=== PATIENT | female | born 1955 | race Caucasian/White ===

== ENCOUNTER → 2019-12-15 14:00 | Outpatient (CLI) | payer BC, SELFPAY ==
--- NOTE | ~2019-12-15 | CT_ITS ---
EXAMINATION: CT chest abdomen pelvis w con EXAM DATE: 12/15/2019 14:41 INDICATION: Unintended Weight loss. History cholecystectomy, appendectomy. Right flank pain. Diarrhea . Cough. Occasional right-sided chest pain. TECHNIQUE: Spiral CT of the chest, abdomen and pelvis was performed following intravenous injection o f 100 mL Omnipaque 350. Axial, coronal and sagittal images were reviewed. Coronal maximum intensity pixel images of chest reviewed. The dose-length product (DLP) for this examination was 314.86 mGy-c m. The exposure was tailored according to patient size (auto mA exposure control), and iterative rec onstruction (ASIR) was used as additional dose reduction technique. Comparison is made to prior exami nation from 11/20/2018. FINDINGS: CHEST: There is mild emphysema. No central pulmonary emboli. Lungs are clear. There are no pleural or pericardial effusions. Tracheobronchial tree is patent. There is no mediastinal, hilar or axil michaelle lymphadenopathy. There is no pneumothorax. Heart normal in size. There is mild coronary ar terial calcification, arterial sclerosis. ABDOMEN PELVIS: The liver, spleen, adrenal glands and pancreas are unremarkable. There are cholecyst ectomy clips. Portal and splenic veins are patent. Kidneys enhance symmetrically. There is no hydr onephrosis. The uterus is unremarkable. Dilated left gonadal veins, could indicate pelvic congestion syndrome. The bladder is unremarkable. There is no retroperitoneal or pelvic lymphadenopathy. Th ere is mild scattered arteriosclerotic disease. The appendix is not positively visualized. There is no pericecal inflammatory change to suggest appe ndicitis. There is small sliding gastroesophageal hiatal hernia. There is moderate scattered coloni c diverticulosis. There is no adjacent inflammatory change to suggest diverticulitis. No free intra peritoneal gas. There are no osteoblastic or osteolytic lesions identified. Severe lower thoracic dextroscoliosis. IMPRESSION: 1. No acute chest abdomen or pelvis findings. 2. Dilated left gonadal vein, possible pelvic congestion syndrome. 3. Moderate colonic diverticulosis. 4. Severe lower thoracic dextroscoliosis. 5. Mild emphysema. Reviewed, dictated and finalized at location B.
[2019-12-15 14:21] LABS: Estimated Glomerular Filt Rate 38
== END ==
PROVIDERS: PCP Internal Medicine; Visit Provider Internal Medicine
DX: R63.4 Abnormal weight loss (principal); K57.90 Diverticulosis of intestine, part unspecified, without perforation or abscess without bleeding; M41.84 Other forms of scoliosis, thoracic region; J43.9 Emphysema, unspecified
CPT/HCPCS: 36415; 71260; 74177; Q9967

== ENCOUNTER → 2020-09-29 11:12 | Outpatient (CLI) | payer MEDICARE, SELFPAY ==
--- NOTE | ~2020-09-29 | XR_ITS ---
XR chest 2V DATE: 09/29/2020 12:14 INDICATION: Cough TECHNIQUE: PA and lateral views COMPARISON: 08/15/2017 two-view chest FINDINGS: There is very prominent reverse S-shaped thoracolumbar scoliosis. Diffuse osteopenia. Mild cardiomegaly. No hilar or mediastinal enlargement. Moderate bilateral hyperinflation suggesting COPD. No pulmonary infiltrate or consolidation, pleural effusion or pulmonary vascular congestion or pneumo thorax. Status post cholecystectomy. IMPRESSION: Moderate bilateral hyperinflation suggesting COPD Mild cardiomegaly Prominent thoracolumbar scoliosis Reviewed, dictated and finalized at location A.
--- NOTE | ~2020-09-29 | XR_ITS ---
XR sinus min 3V DATE: 09/29/2020 12:15 INDICATION: Nasal congestion TECHNIQUE: Submental vertical, lateral, [place], [place] views COMPARISON: 12/11/2017 CT sinuses FINDINGS: The paranasal sinuses and mastoid air cells are normally developed and aerated. IMPRESSION: Negative Reviewed, dictated and finalized at location A. IMPRESSION: Negative
== END ==
PROVIDERS: PCP Internal Medicine; Visit Provider Internal Medicine
DX: R05 Cough (principal); R09.89 Other specified symptoms and signs involving the circulatory and respiratory systems; R09.81 Nasal congestion; R91.8 Other nonspecific abnormal finding of lung field; I51.7 Cardiomegaly; M41.85 Other forms of scoliosis, thoracolumbar region
CPT/HCPCS: 70220; 71046

== ENCOUNTER → 2020-10-04 12:30 | Outpatient (CLI) | payer MEDICARE, SELFPAY ==
--- NOTE | ~2020-10-04 | US_ITS ---
EXAMINATION: US renal BI EXAM DATE: 10/04/2020 13:12 INDICATION: R79.89 - Other specified abnormal findings of blood chemistry. Abnormal kidney function. TECHNIQUE: Multiple grayscale and Doppler images of the kidneys were obtained (by a technologist who performed the scan) and subsequently reviewed. There is no prior study for comparison. FINDINGS: Right kidney: There is normal contour and echogenicity. It measures 8.8 x 3.6 x 4.4 centimeters. Th ere are no focal renal lesions identified. There is no hydronephrosis. Left kidney: There is normal contour and echogenicity. It measures 8.1 x 3.6 x 3.4 centimeters. The re are no focal renal lesions identified. There is no hydronephrosis. Bladder unremarkable. IMPRESSION: 1. Sonographically unremarkable kidneys. Reviewed, dictated and finalized at location A.
== END ==
PROVIDERS: PCP Internal Medicine; Visit Provider Internal Medicine
DX: R79.89 Other specified abnormal findings of blood chemistry (principal)
CPT/HCPCS: 76775

== ENCOUNTER 2020-10-05 12:55 | Outpatient (CLI) | payer MEDICARE, SELFPAY ==
--- NOTE | 2020-10-05 13:13 | ECHO_ITS ---
Patient Info Name: Soo Coello Age: 64 years : 1955 Gender: Female Ht: 63 in Wt: 114 lbs BSA: 1.51 m2 HR: 77 bpm BP: 131 / 76 mmHg Technical Quality: Good Exam Date: 10/05/2020 1:32 PM Exam Location: [facility] Patient Status: Outpatient Admit Date: 10/05/2020 Staff Ordering Physician: Shane Puckett MD [employer] Counselor: Eliel Stevens, INEZ, RT Attending Provider: Shane Puckett MD Referring Physician: Lavern HILL; Exam Type: CA echo doppler color flow Study Info Indications I51.7 - Cardiomegaly Complete two-dimensional, color flow and Doppler transthoracic echocardiogram is performed. Strain analysis performed. Summary 1. Complete two-dimensional, color flow and Doppler transthoracic echocardiogram is performed. 2. Left ventricular chamber dimension is normal. 3. Left ventricular systolic function is normal, estimated at 60-65%. 4. The left ventricular diastolic function is grade I diastolic dysfunction. 5. E/e' 10 is mildly elevated. 6. Global longitudinal strain is normal at -20.9%. 7. There is trace mitral valve regurgitation. 8. There is mild to moderate tricuspid valve regurgitation. 9. Severe pulmonary hypertension, estimated pulmonary arterial systolic pressure is 65 mmHg. 10. Dilated inferior vena cava with >50% collapse upon inspiration consistent with elevated right atrial pressure, 10 mmHg. Left Ventricle E/e' 10 is mildly elevated. Global longitudinal strain is normal at -20.9%. Left ventricular chamber dimension is normal. Left ventricular systolic function is normal, estimated at 60-65%. The left ventricular diastolic function is grade I diastolic dysfunction. Right Ventricle Right ventricular systolic function is normal and with normal TAPSE 2.5 cm. Right ventricular chamber dimension is normal. Left Atria Left atrial chamber dimension is normal. Right Atria Right atrial chamber dimension is normal. Aortic Valve The aortic valve is trileaflet. There is no aortic valve stenosis. There is no aortic valve regurgitation. Pulmonic Valve There is no pulmonic regurgitation. Mitral Valve There is no mitral valve stenosis. There is trace mitral valve regurgitation. Tricuspid Valve There is mild to moderate tricuspid valve regurgitation. Severe pulmonary hypertension, estimated pulmonary arterial systolic pressure is 65 mmHg. Pericardium/Pleural There is no pericardial effusion. Inferior Vena Cava Dilated inferior vena cava with >50% collapse upon inspiration consistent with elevated right atrial pressure, 10 mmHg. Aorta The aortic root size at the sinus of Valsalva is normal. Left Ventricular Outflow Tract Name Value Normal LVOT 2D LVOT Diameter 1.9 cm LVOT Doppler LVOT Peak Gradient 4 mmHg LVOT Mean Gradient 2 mmHg LVOT VTI 21 cm LVOT VTI/AV VTI Ratio 0.8 LVOT Stroke Volume 56 ml LVOT CO 4.2 l/min LVOT CI 2.8 l/min/m2
== END 2020-10-05 12:56 | disposition home or self-care (01) ==
PROVIDERS: PCP Internal Medicine; Visit Provider Internal Medicine
DX: I51.7 Cardiomegaly (principal); I36.1 Nonrheumatic tricuspid (valve) insufficiency; I27.20 Pulmonary hypertension, unspecified
CPT/HCPCS: 93306

== ENCOUNTER 2020-10-13 10:05 | Outpatient (CLI) | payer MEDICARE, SELFPAY ==
--- NOTE | ~2020-10-13 | CT_ITS ---
EXAMINATION: CT diagnostic chest w con DATE: 10/13/2020 11:57 INDICATION: Pulmonary hypertension TECHNIQUE: Computed tomography (CT) of the chest was performed with 75 cc Omnipaque 350 intravenous c ontrast. The dose-length product was 122.66 mGy-cm. Automated exposure control and iterative reconstr uction technique were employed. COMPARISON: CT dated 12/15/2019 FINDINGS: Main pulmonary artery measures 3.1 cm which is compatible with pulmonary hypertension (main pulmonary artery greater than or equal to 29 mm has a 97% positive predictive value and diagnosis of pulmonary hypertension) there is dependent atelectasis. Calcified granuloma right midlung zone.. No filling defects to suggest pulmonary hypertension. No thoracic lymphadenopathy. Heart size normal. Sm all hiatal hernia. No significant pleural or pericardial effusion. There is scoliosis. The upper abdo men is unremarkable. IMPRESSION: 1. Enlarged main pulmonary artery, consistent with clinical diagnosis of pulmonary hypertension. Reviewed, dictated and finalized at location A. IMPRESSION: 1. Enlarged main pulmonary artery, consistent with clinical diagnosis of pulmon ramya hypertension.
[2020-10-13 11:52] LABS: Estimated Glomerular Filt Rate 38
== END 2020-10-13 10:06 | disposition home or self-care (01) ==
PROVIDERS: PCP Internal Medicine; Visit Provider Internal Medicine
DX: I27.20 Pulmonary hypertension, unspecified (principal)
CPT/HCPCS: 71260; Q9967

== ENCOUNTER 2020-10-28 09:06 | Outpatient (CLI) | payer MEDICARE, SELFPAY ==
--- NOTE | 2020-10-28 17:03 | WPDPFTINT ---
PFT Procedure Performed PFT Procedure Performed Spirometry with Pre/Post Bronchodilator Plethysmography (Lung Vol) Diffusing Cap (DLCO) Flow Vol Loop PFT Interpretation This is a pulmonary function test with pre and post-bronchodilator spirometry, plethysmography and diffusing capacity. The test was performed and results interpreted in accordance with the 2019 and 2005 ATS/ERS Task Force guidelines respectively using the Global Lung Function Initiative-2012 reference equations. Patient demonstrated good effort and cooperation. Reproducibility criteria were met. The quality of the pre bronchodilator spirometry maneuver was Grade A and post bronchodilator spirometry maneuver was Grade A. Findings: Spirometry: There is decreased maximal expiratory airflow at low lung volumes with concave expiratory flow tracing. The pre bronchodilator FVC is 2.44 L, 85% predicted. The pre bronchodilator FEV1 is 1.66 L, 74% predicted. The FEV1: FVC ratio 68%. The post bronchodilator FVC is 2.29 L, representing a 6% decrease. The post bronchodilator FEV1 is 1.67 L, representing a 1% increase. Plethysmography: The total lung capacity is 3.53 L, 72% predicted. The functional residual capacity is 2.00 L, 72% predicted. The residual volume is 1.09 L, 53% predicted. Diffusing capacity: The absolute diffusion capacity is 5.6, 27% predicted. The diffusing capacity corrected for alveolar volume is 1.64, 34% predicted. Impression: There is a combined obstructive and restrictive ventilatory abnormality. There are no guidelines to assign the severity of obstruction and restriction with a combined abnormality. In my opinion, given the concave expiratory flow tracing and mildly decreased FEV1: FVC ratio and mild restrictive abnormality I would state there is a mild obstructive abnormality and a mild restrictive abnormality resulting in a mildly decreased FEV1. There is no significant improvement after inhaling a single dose of albuterol. The diffusing capacity is severely decreased and remains severely decreased when corrected for alveolar volume. There are no prior studies for comparison
== END 2020-10-28 09:07 | disposition home or self-care (01) ==
LOC: ANHPFT 09:06
PROVIDERS: PCP Internal Medicine; Visit Provider Internal Medicine
DX: I27.20 Pulmonary hypertension, unspecified (principal)
CPT/HCPCS: 94060; 94726; 94729

== ENCOUNTER 2020-11-09 08:02 | Outpatient (CLI) | payer MEDICARE, SELFPAY ==
--- NOTE | ~2020-11-09 | CT_ITS ---
EXAMINATION:CT diagnostic chest w con DATE: 11/09/2020 08:47 INDICATION: Shortness of breath. TECHNIQUE: Computed tomography (CT) of the chest was performed with 75 mL Omnipaque 350 intravenous c ontrast. Automated exposure control and iterative reconstruction technique were employed. The dose-le ngth product (DLP) was 120.22 mGy-cm. COMPARISON: Chest CT 10/13/2020 FINDINGS: There is mild atelectasis bilaterally. There is mild scarring at left lung apex. There is s mooth septal thickening in the lungs, consistent with mild pulmonary edema. A calcified right lung no dule and calcified right hilar lymph nodes are consistent with old granulomatous disease. No honeycom gamal. No pleural effusion. The heart size is normal. There are coronary artery calcifications. No per icardial effusion. The central pulmonary arteries are enlarged, consistent with pulmonary arterial hy pertension. There is thoracolumbar dextroscoliosis and mild spondylosis. IMPRESSION: 1. Mild pulmonary edema. 2. Mild scarring at left lung apex. 3. Enlarged central pulmonary arteries, consistent with pulmonary arterial hypertension. Reviewed, dictated and finalized at location A. IMPRESSION: 1. Mild pulmonary edema. 2. Mild scarring at left lung apex. 3. Enlarged central pulmonary arteries, consistent with pulmonary arterial hype rtension.
[2020-11-09 08:33] LABS: Estimated Glomerular Filt Rate 38
== END 2020-11-09 08:03 | disposition home or self-care (01) ==
PROVIDERS: PCP Internal Medicine; Visit Provider Internal Medicine
DX: R06.02 Shortness of breath (principal); R94.2 Abnormal results of pulmonary function studies; J81.1 Chronic pulmonary edema; R91.8 Other nonspecific abnormal finding of lung field; I77.89 Other specified disorders of arteries and arterioles
CPT/HCPCS: 71260; Q9967

== ENCOUNTER 2020-11-26 08:13 | Outpatient (CLI) | payer MEDICARE, SELFPAY ==
[2020-11-26 08:30] VITALS: PULSE 70; O2SAT 97
[2020-11-26 08:35] VITALS: PULSE 109; O2SAT 89
[2020-11-26 08:45] VITALS: PULSE 72; O2SAT 96
--- NOTE | 2020-11-26 09:27 | HOMEO2EVAL ---
Evaluation was performed at [facility] Home Oxygen Evaluation RC: Home Oxygen (O2) Evaluation Start: 11/26/20 09:25 Freq: Status: Active Protocol: RPE Activity Type Activity Date Activity User E-Sign Co-Sign Detail Recorded Client Recorded Date Recorded By Document 11/26/20 08:30 [email or web address] [id number] 11/26/20 09:26 DJO Document 11/26/20 08:35 [email or web address] [id number] 11/26/20 09:26 DJO Document 11/26/20 08:45 [email or web address] [email or web address] 11/26/20 09:26 DJO 11/26/20 11/26/20 11/26/20 08:30 08:35 08:45 Home O2 Evaluation Test Phase Resting Resting Resting Oxygen Delivery Room Air Room Air Room Air Pulse Oximetry (90-100 %) 97 89 L 96 Pulse Rate (60-100 beats/min) 70 109 H 72 Ambulation Distance (feet) 500 Home Oxygen Evaluation Comments NO HOME O2 NEEDED. Treatment Charges O2 Evaluation - Outpatient
--- NOTE | 2020-11-26 09:28 | PCRCNOTE ---
HOME O2 EVAL DONE, PT ENCOURAGED TO DEEP BREATH TO KEEP SATS UP, ONCE DEEP BREATHING, PT SATS INCREASED 94% WITH EXERTION
== END 2020-11-26 08:14 | disposition home or self-care (01) ==
PROVIDERS: PCP Internal Medicine; Visit Provider Internal Medicine
DX: J81.0 Acute pulmonary edema (principal); M34.9 Systemic sclerosis, unspecified; I27.20 Pulmonary hypertension, unspecified
CPT/HCPCS: 94618

== ENCOUNTER → 2020-12-23 13:07 | Outpatient (CLI) | payer MEDICARE, SELFPAY ==
--- NOTE | ~2020-12-23 | XR_ITS ---
EXAMINATION: XR hand LT 2V, XR hand RT 2V DATE: 12/23/2020 13:27 INDICATION: Scleroderma. Polyarthralgia. TECHNIQUE: 1. Posteroanterior and lateral views of the left hand were obtained. 2. Posteroanterior and lateral views of the right hand were obtained. COMPARISON: None. FINDINGS: There is ankylosis across the left second, fourth and fifth and right fifth distal interphalangeal ricki ints. Severe osteoarthritis with central erosions at the left third and fourth second-fourth distal i nterphalangeal joints. There is secondary mild palmar subluxation at the right fourth distal interpha langeal joint. There is increased left-sided scapholunate angle consistent with dorsal intercalated s egment instability (DISI) and suggesting scapholunate ligament insufficiency. Alignment is otherwise normal at the bilateral hands. Mild to moderate joint space narrowing at many of the remaining metaca rpophalangeal and interphalangeal joints most prominent at the bilateral fourth and fifth proximal in terphalangeal and bilateral fourth metacarpophalangeal joints. Additional mild osteoarthritis at mult iple joints in the bilateral wrist and carpus. Aside from at the bases of several of the distal phala nges, no other erosions identified. No active osteolysis. No fracture. Periarticular osteopenia. Mild periarticular soft tissue swelling about many of the interphalangeal joints. IMPRESSION: 1. Polyarticular arthritis, severe and with secondary ankylosis at multiple distal interphalangeal ricki ints and with prominent erosions at the remaining distal interphalangeal joints and mild to moderate at the more proximal hands and wrists. Differential would include scleroderma as well as erosive oste oarthritis, the appearance at the distal interphalangeal joints favoring the latter. 2. Increased left scapholunate angle consistent with dorsal intercalated segment instability (DISI) a nd suggesting scapholunate ligament insufficiency. Reviewed, dictated and finalized at location D. IMPRESSION: 1. Polyarticular arthritis, severe and with secondary ankylosis at multiple dis marbella interphalangeal joints and with prominent erosions at the remaining distal interphalangeal joints and mild to moderate at the more proximal hands and wris ts. Differential would include scleroderma as well as erosive osteoarthritis, t he appearance at the distal interphalangeal joints favoring the latter. 2. Increased left scapholunate angle consistent with dorsal intercalated segmen t instability (DISI) and suggesting scapholunate ligament insufficiency.
== END ==
PROVIDERS: PCP Internal Medicine; Visit Provider Physician Assistant
DX: M15.9 Polyosteoarthritis, unspecified (principal); M25.50 Pain in unspecified joint; Z87.39 Personal history of other diseases of the musculoskeletal system and connective tissue
CPT/HCPCS: 73120

== ENCOUNTER 2021-01-20 07:37 | Outpatient (CLI) | payer MEDICARE, SELFPAY ==
--- NOTE | 2021-02-01 15:25 | WPDSLEEPSTUD ---
Sleep Study Date of Study: 01/20/21 Ordering Provider: Ingris Katz MD Interpreting Physician: Ingris Katz MD Sleep Study Type: Polysomnogram Height: 1.57 m Weight: 49.895 kg Body Mass Index: 20.1 Neck Circumference (inches): 11 [place]: 3 Reason for Sleep Study Pulmonary hypertension, shortness of breath Sleep History Soo Chowdhury is a 65-year-old female with shortness of breath especially with stairs. She has difficulty falling asleep and she wakes up throughout the night. She does not awaken from sleep feeling short of breath. She rarely awakens at night with heartburn, belching or coughing. She rarely snores and it rarely is loud. She does not have trouble sleeping with a cold. She does not wake up gasping for breath at night. She does not have breathing problems at night observed by others. She does not sweat excessively at night. She occasionally notices her heart pounding or beating irregularly at night. She does not fall asleep during the day, does not fall asleep involuntarily or while driving the car. She does not have loss of muscle tone with strong emotion. She does not have daytime difficulties due to excessive sleepiness. She rarely has vivid dreamlike scenes upon awakening or falling asleep. She does not feel afraid to go to sleep and does not have nightmares. She frequently remembers her dreams. She really has racing thoughts. She has feelings of sadness, depression and anxiety. She occasionally has muscular tension. She does not notice parts of her body jerking and she does not kick at night. She has crawling and aching feelings in her legs. She does not have any kind of leg pain at night. She does not have morning jaw pain. She is not sure but she thinks she occasionally grinds her teeth at night. She occasionally is bothered by pain during the day. She is not awakened by pain during the night or wake up feeling stiff in the morning. She rarely wakes up with sore achy muscles or pain in the neck and spine. She has fatigue, headaches, palpitations and takes prescription medication for GERD. Normal bedtime is 11:30 p.m. and she is not sure how long it takes her to fall asleep. Once she is asleep she wakes once or twice during the night. Once is when her comes to bed. He works a shift from 4:00 p.m. to midnight. She wakes in the morning between 9 and 10:00 a.m.. Her weekend schedule is the same. She estimates getting 8 hours of sleep at night. She does not take naps in the afternoon or evening. A short 10-15 minute nap may be refreshing. She occasionally awakens feeling refreshed in the morning. She feels better in the morning compared to other times of day. [facility]LY [facility] Past Medical History Medical History Abnormal PFT Adult BMI 19-24 kg/sq m Anxiety BMI 20.0-20.9, adult Diastolic dysfunction Edema Elevated homocysteine Elevated serum creatinine Encounter for routine adult health examination without abnormal findings Follow up Gastroparesis GERD (gastroesophageal reflux disease) Hearing loss Hx of colonic polyps Hyperlipidemia Hypothyroidism (acquired) Itching Nasal sinus congestion On [facility] drug therapy Pulmonary edema Pulmonary hypertension associated with systemic disorder Scleroderma Scoliosis Shortness of breath Sinus drainage Skin plaque Statin intolerance Unexplained weight loss Family History Family History Father Cerebrovascular accident Family history of coronary artery disease Grandparent Acute myocardial infarction Social History Social History (Updated 01/24/21 @ 14:15 by Trixie Naranjo CMA) Smoking status: Never smoker Second hand tobacco smoke exposure: No Alcohol intake: never Substance use: never Living arrangements: with family Spiritual care concerns: No Medications Home Medications Medicati
[2021-02-01 15:28] VITALS: BMI 20.1
== END 2021-01-21 06:04 | disposition home or self-care (01) ==
LOC: ANHCSM 07:39
PROVIDERS: PCP Internal Medicine; Visit Provider Internal Medicine Critical Care Medicine
DX: G47.19 Other hypersomnia (principal); R06.02 Shortness of breath; G47.31 Primary central sleep apnea; G25.81 Restless legs syndrome
CPT/HCPCS: 95810

== ENCOUNTER 2021-02-17 01:16 | Day surgery (SDC) | payer MEDICARE, SELFPAY ==
[2021-01-28 13:57] VITALS: BMI 20.1
[2021-02-17 08:39] VITALS: BP 109/64; PULSE 83; RESP 16; TEMP 37.7; O2SAT 93
[2021-02-17] MEDS: LACTATED RINGERS 1,000 ML 150 ML IV CONT (08:43)
--- NOTE | 2021-02-17 08:52 | WPDANESEPPF ---
Anes - Initial Pre Proc Eval Procedure: Operation Date: 02/17/21 09:45 Proposed Procedures p Esophagogastroduodenoscopy - Alec Lopez MD Date/Time: 02/17/21 08:52 Surgeon: lAec Lopez MD Pre Op Diagnosis: dysphagia Patient Data Age: 65 Gender: F Height: 1.57 m Weight: 49.5 kg Last Vital Signs Temp 37.7 C H 02/17/21 08:39 Pulse 83 02/17/21 08:39 Resp 16 02/17/21 08:39 BP 109/64 02/17/21 08:39 Pulse Ox 93 02/17/21 08:39 Allergies Allergy/AdvReac Type Severity Reaction Status Date / Time latex Allergy Mild RASH Verified 02/17/21 08:38 naproxen Allergy Unknown Nausea Verified 02/17/21 08:38 Home Medications Medication Instructions Recorded Confirmed Type fluticasone propionate 50 2 spray NASAL DAILY 04/29/19 02/17/21 History mcg/actuation nasal spray,suspension cetirizine 10 mg tablet 5 mg PO DAILY PRN 12/11/19 02/17/21 History omeprazole 40 mg capsule,delayed 40 mg PO DAILY #90 cap 04/26/20 02/17/21 Rx release folic acid 1 mg tablet 1 mg PO DAILY #90 tablet 05/17/20 02/17/21 Rx omega-3 fatty acids 1,000 mg 2,000 mg PO BID cap 05/24/20 02/17/21 History capsule alprazolam 0.25 mg tablet 0.25 mg PO TID PRN #30 tablet 08/04/20 02/17/21 Rx cholecalciferol (vitamin D3) 25 mcg PO DAILY 09/29/20 02/17/21 History cyanocobalamin (vitamin B-12) 200 4 spray SUBLINGUAL DAILY ml 09/29/20 02/17/21 History mcg/spray sublingual spray,suspension albuterol sulfate 90 mcg/actuation 2 inh INHALATION Q4-6H PRN #8.5 g 10/01/20 02/17/21 Rx aerosol inhaler Synthroid 100 mcg tablet See Rx Instructions .ROUTE 10/26/20 02/17/21 Rx .COMPLEX #90 tablet NS furosemide 20 mg tablet 20 mg PO QAM #30 tablet 11/11/20 02/17/21 Rx potassium chloride 10 mEq 10 meq PO DAILY #30 tablet 11/11/20 02/17/21 Rx tablet,extended release sertraline 100 mg tablet See Rx Instructions .ROUTE 12/23/20 02/17/21 Rx .COMPLEX #90 tablet montelukast 10 mg tablet See Rx Instructions .ROUTE 01/10/21 02/17/21 Rx .COMPLEX #30 tablet ezetimibe 10 mg tablet 10 mg PO DAILY 02/11/21 History ferrous sulfate 325 mg (65 mg 325 mg PO BID #60 tablet 02/15/21 Rx iron) tablet Patient hx anesthesia problems: none Family hx anesthesia problems: none Results Review: All pre-operative results and documents have been reviewed as part of the pre-operative evaluation. [facility]LY [facility] Past Medical History Medical History Abnormal PFT Adult BMI 19-24 kg/sq m Anxiety BMI 20.0-20.9, adult Diastolic dysfunction Edema Elevated homocysteine Elevated serum creatinine Encounter for routine adult health examination without abnormal findings Follow up Gastroparesis GERD (gastroesophageal reflux disease) Hearing loss Hx of colonic polyps Hyperlipidemia Hypothyroidism (acquired) Itching Nasal sinus congestion On [employer] drug therapy Pulmonary edema Pulmonary hypertension associated with systemic disorder Scleroderma Scoliosis Shortness of breath Sinus drainage Skin plaque Statin intolerance Unexplained weight loss Family History Family History Father Cerebrovascular accident Family history of coronary artery disease Grandparent Acute myocardial infarction Social History Social History Smoking status: Never smoker Second hand tobacco smoke exposure: No Alcohol intake: never Substance use: never Living arrangements: with family Spiritual care concerns: No Anes - Eval Final PreProcedure Day of Procedure 02/17/21 08:52 Patient weight: normal Heart: regular rate and rhythm Lungs: clear to auscultation Airway: Mallampati scale class II Neurological: alert and oriented Last oral intake: >/= 8 hours ASA classification: II Emergent: no Anesthetic plan: proceed Anesthesia type and monitoring: general GIVS and standard monitoring
--- NOTE | 2021-02-17 09:15 | WPDHPUPDATE1 ---
History and Physical Update Update Date/Time: 02/17/21 09:15 History and Physical has been reviewed, including an updated exam of the patient. There are NO changes in the patient's condition. Risks, benefits, and alternatives have been discussed and questions answered. Patient agrees to proceed with procedure.
[2021-02-17 09:46] VITALS: BP 84/52; PULSE 66; RESP 16; O2SAT 96
[2021-02-17 09:56] VITALS: BP 114/71; PULSE 71; RESP 20; O2SAT 96
[2021-02-17 10:06] VITALS: BP 128/80; PULSE 78; RESP 18; O2SAT 100
== END 2021-02-17 10:26 | disposition home or self-care (01) ==
PROVIDERS: PCP Internal Medicine; Visit Provider Internal Medicine Gastroenterology
PROC: 0DJ08ZZ Inspection of Upper Intestinal Tract, Via Natural or Artificial Opening Endoscopic (ICD-10-PCS; CPT 43235; principal; 2021-02-17 09:45)
DX: Q39.4 Esophageal web (principal); K31.84 Gastroparesis; K21.9 Gastro-esophageal reflux disease without esophagitis; E78.5 Hyperlipidemia, unspecified; I27.29 Other secondary pulmonary hypertension; E03.9 Hypothyroidism, unspecified; M34.9 Systemic sclerosis, unspecified; I73.00 Raynaud's syndrome without gangrene; F41.9 Anxiety disorder, unspecified; I51.89 Other ill-defined heart diseases; Z79.51 Long term (current) use of inhaled steroids
CPT/HCPCS: 43249; C1726; J2704; J7120

== ENCOUNTER 2021-04-06 07:27 | Outpatient (CLI) | payer MEDICARE, SELFPAY ==
--- NOTE | 2021-04-26 11:43 | WPDSLEEPSTUD ---
Sleep Study Date of Study: 04/06/21 <Stacey Farmer DO - Last Filed: 04/26/21 12:50> Ordering Provider: Jaiden Vides APRN <Stacey Farmer DO - Last Filed: 04/26/21 12:50> Interpreting Physician: Stacey Farmer DO <Stacey Farmer DO - Last Filed: 04/26/21 12:50> Sleep Study Type: CPAP Titration <Stacey Farmer DO - Last Filed: 04/26/21 12:50> Height: 1.55 m <Stacey Farmer DO - Last Filed: 04/26/21 12:50> Weight: 49.895 kg <Stacey Farmer DO - Last Filed: 04/26/21 12:50> Body Mass Index: 20.7 <Stacey Farmer DO - Last Filed: 04/26/21 12:50> Neck Circumference (inches): 12 <Stacey Farmer DO - Last Filed: 04/26/21 12:50> Pettigrew: 3 <Stacey Farmer DO - Last Filed: 04/26/21 12:50> Reason for Sleep Study The patient had a PSG on January 20, 2021 that showed an AHI of 5. Her central apnea index was 4.2 with several underscored central hypopneas. <Stacey Farmer DO - Last Filed: 04/26/21 12:50> Sleep History Soo Chowdhury is a 65-year-old female with shortness of breath especially with stairs. She has difficulty falling asleep and she wakes up throughout the night. She does not awaken from sleep feeling short of breath. She rarely awakens at night with heartburn, belching or coughing. She rarely snores and it rarely is loud. She does not have trouble sleeping with a cold. She does not wake up gasping for breath at night. She does not have breathing problems at night observed by others. She does not sweat excessively at night. She occasionally notices her heart pounding or beating irregularly at night. She does not fall asleep during the day, does not fall asleep involuntarily or while driving the car. She does not have loss of muscle tone with strong emotion. She does not have daytime difficulties due to excessive sleepiness. She rarely has vivid dreamlike scenes upon awakening or falling asleep. She does not feel afraid to go to sleep and does not have nightmares. She frequently remembers her dreams. She really has racing thoughts. She has feelings of sadness, depression and anxiety. She occasionally has muscular tension. She does not notice parts of her body jerking and she does not kick at night. She has crawling and aching feelings in her legs. She does not have any kind of leg pain at night. She does not have morning jaw pain. She is not sure but she thinks she occasionally grinds her teeth at night. She occasionally is bothered by pain during the day. She is not awakened by pain during the night or wake up feeling stiff in the morning. She rarely wakes up with sore achy muscles or pain in the neck and spine. She has fatigue, headaches, palpitations and takes prescription medication for GERD. Normal bedtime is 11:30 p.m. and she is not sure how long it takes her to fall asleep. Once she is asleep she wakes once or twice during the night. Once is when her comes to bed. He works a shift from 4:00 p.m. to midnight. She wakes in the morning between 9 and 10:00 a.m.. Her weekend schedule is the same. She estimates getting 8 hours of sleep at night. She does not take naps in the afternoon or evening. A short 10-15 minute nap may be refreshing. She occasionally awakens feeling refreshed in the morning. She feels better in the morning compared to other times of day. <Stacey Farmer DO - Last Filed: 04/26/21 12:50> [facility]LY [facility] Past Medical History Medical History: Medical History Abnormal PFT Adult BMI 19-24 kg/sq m Anxiety BMI 20.0-20.9, adult Diastolic dysfunction Edema Elevated homocysteine Elevated serum creatinine Encounter for routine adult health examination without abnormal findings Follow up Gastroparesis GERD (gastroesophageal reflux disease) Hearing loss Hx of colonic polyps Hyperlipidemia Hypothyroidis
[2021-04-26 12:24] VITALS: BMI 20.7
== END 2021-04-07 07:19 | disposition home or self-care (01) ==
LOC: ANHCSM 07:28
PROVIDERS: PCP Internal Medicine; Visit Provider Nurse Practitioner Family
DX: G47.31 Primary central sleep apnea (principal)
CPT/HCPCS: 95811

== ENCOUNTER 2021-09-01 07:38 | Outpatient (CLI) | payer MEDICARE, SELFPAY ==
--- NOTE | ~2021-09-01 | NM_ITS ---
EXAM: NM gastric emptying study DATE: 09/01/2021 12:47 INDICATION: Nausea TECHNIQUE: A gastric emptying study was performed using the methodology of Lurdes WELSH, et al. J Nucl Med 2007; 48:568-572. The patient was given a meal consisting of 2 scrambled eggs labeled with 0.972 mCi Tc-99m sulfur colloid, 2 slices of toast, two packages of jam, and approximately 120 mL of water . Simultaneous anterior and posterior 1-min images of the abdomen were obtained with the patient supi ne at multiple time points over a total period of 4 hours. The geometric mean of anterior and posteri or views was determined, and the percentage retention was calculated for each time point. COMPARISON: None. FINDINGS: Gastric retention of the radiotracer-labeled meal was 70%, 42%, and 35% at the 1-hour, 2-hour, and 4- hour time points, respectively. With this technique, apparent rapid gastric emptying is suggested by <30% gastric retention at 1 hour. Delayed gastric emptying is defined by gastric retention of >90% at 1 hour, >60% retention at 2 hours, or >10% retention at 4 hours. IMPRESSION: 1. Delayed gastric emptying. Reviewed, dictated and finalized at location A.
== END 2021-09-01 07:39 | disposition home or self-care (01) ==
PROVIDERS: PCP Internal Medicine; Visit Provider Nurse Practitioner Family
DX: R11.0 Nausea (principal); R14.2 Eructation
CPT/HCPCS: 78264; A9541

== ENCOUNTER 2021-11-21 00:37 | Day surgery (SDC) | payer MEDICARE, SELFPAY ==
[2021-11-09 10:17] VITALS: BMI 20.5
[2021-11-21 06:35] VITALS: BP 109/65; PULSE 81; RESP 16; TEMP 36.6; O2SAT 92
[2021-11-21] MEDS: LACTATED RINGERS 1,000 ML 150 ML IV CONT (06:45)
--- NOTE | 2021-11-21 07:08 | WPDANESEPPF ---
Anes - Initial Pre Proc Eval Procedure: Operation Date: 11/21/21 07:30 Proposed Procedures p Esophagogastroduodenoscopy - Alec Lopez MD Date/Time: 11/21/21 07:08 Surgeon: Alec Lopez MD Pre Op Diagnosis: GERD Patient Data Age: 66 Gender: F Height: 1.57 m Weight: 51.4 kg Last Vital Signs Temp 36.6 C 11/21/21 06:35 Pulse 81 11/21/21 06:35 Resp 16 11/21/21 06:35 BP 109/65 11/21/21 06:35 Pulse Ox 92 11/21/21 06:35 O2 Del Method Room Air 11/21/21 06:35 Allergies Allergy/AdvReac Type Severity Reaction Status Date / Time latex Allergy Mild RASH Verified 11/21/21 06:29 naproxen Allergy Unknown Nausea Verified 11/21/21 06:29 Home Medications Medication Instructions Recorded Confirmed Type cyanocobalamin (vitamin B-12) 200 4 spray sublingual DAILY 09/29/20 11/09/21 History mcg/spray sublingual spray,suspension ezetimibe 10 mg tablet 10 mg PO DAILY 02/11/21 11/09/21 History montelukast 10 mg tablet See Rx Instructions .Route 02/22/21 11/09/21 Rx .COMPLEX #90 tabs sertraline 100 mg tablet See Rx Instructions .Route 02/22/21 11/09/21 Rx .COMPLEX #90 tabs alprazolam 0.25 mg tablet 0.25 mg PO TID PRN anxiety #30 tabs 04/11/21 11/09/21 Rx folic acid 1 mg tablet 1 mg PO DAILY #90 tabs 05/25/21 11/09/21 Rx furosemide 20 mg tablet See Rx Instructions .Route .COMPLEX 07/06/21 11/09/21 History cholecalciferol (vitamin D3) 25 2,000 unit PO DAILY 07/28/21 11/09/21 History mcg/drop (1,000 unit/drop) oral drops Synthroid 125 mcg tablet 125 mcg PO DAILY #90 tabs 09/05/21 11/09/21 Rx (levothyroxine) metoclopramide HCl 10 mg tablet 10 mg PO TIDWMEAL nausea and 10/26/21 11/09/21 Rx (Reglan) vomiting #90 tabs cetirizine 10 mg tablet (Allergy 10 mg PO DAILY PRN Allergy Symptoms 10/27/21 11/09/21 History Relief (cetirizine)) omeprazole 40 mg capsule,delayed 40 mg PO DAILY #60 caps 10/27/21 11/09/21 Rx release coenzyme Q10 75 mg capsule (Ultra 75 mg PO DAILY 11/03/21 11/09/21 History CoQ10) rosuvastatin 10 mg tablet 10 mg PO DAILY #30 tabs 11/03/21 11/09/21 Rx cyclosporine 0.05 % eye drops in a 2 drp EACH EYE DAILY 11/09/21 11/09/21 History dropperette (Restasis) fluticasone furoate 100 1 inh inhalation DAILY 11/09/21 11/09/21 History mcg/actuation blister powder for inhalation (Arnuity Ellipta) spironolactone 25 mg tablet 0.5 tablet PO DAILY 11/09/21 11/09/21 History ferrous sulfate 325 mg (65 mg See Rx Instructions .Route 11/18/21 Rx iron) tablet .COMPLEX #30 tabs Patient hx anesthesia problems: none Family hx anesthesia problems: none Results Review: All pre-operative results and documents have been reviewed as part of the pre-operative evaluation. [facility] Past Medical History Medical History (Updated 11/03/21 @ 14:28 by Liza Solomon [facility]) Abnormal PFT Acute recurrent sinusitis Adult BMI 19-24 kg/sq m Anxiety BMI 20.0-20.9, adult Chronic obstructive pulmonary disease (COPD) suggested by initial evaluation CKD (chronic kidney disease) Closed fracture of left wrist Cognitive changes Cough Diarrhea Diastolic dysfunction Edema Elevated homocysteine Elevated serum creatinine Encounter for routine adult health examination without abnormal findings Family history of early CAD Fever Follow up Gastroparesis GERD (gastroesophageal reflux disease) Hearing loss Herpes zoster without complication Hospital discharge follow-up Hx of colonic polyps Hyperlipidemia Hypothyroidism (acquired) Interstitial lung disease Iron deficiency anemia Itching Nasal sinus congestion On termite treater drug therapy Parainfluenza Pleuritic chest pain Pulmonary edema Pulmonary hypertension associated with systemic disorder Scleroderma Scoliosis Shortness of breath Sinus drainage Skin plaque Statin intolerance Stress Swelling of lymph node TMJ (temporomandibular joint syndrome) Unexplained weight loss Unintentional weight loss Family History Fam
--- NOTE | 2021-11-21 07:34 | WPDHPUPDATE1 ---
History and Physical Update Update Date/Time: 11/21/21 07:34 History and Physical has been reviewed, including an updated exam of the patient. There are NO changes in the patient's condition. Risks, benefits, and alternatives have been discussed and questions answered. Patient agrees to proceed with procedure.
[2021-11-21 07:45] VITALS: BP 90/54; PULSE 79; RESP 12; O2SAT 93
[2021-11-21 07:55] VITALS: BP 93/62; PULSE 80; RESP 19; O2SAT 92
[2021-11-21 08:05] VITALS: BP 99/74; PULSE 81; RESP 16; O2SAT 93
== END 2021-11-21 08:22 | disposition home or self-care (01) ==
PROVIDERS: PCP Internal Medicine; Visit Provider Internal Medicine Gastroenterology
PROC: 0DJ08ZZ Inspection of Upper Intestinal Tract, Via Natural or Artificial Opening Endoscopic (ICD-10-PCS; CPT 43235; principal; 2021-11-21 07:30)
DX: K21.9 Gastro-esophageal reflux disease without esophagitis (principal); N18.9 Chronic kidney disease, unspecified; R13.10 Dysphagia, unspecified; Z82.49 Family history of ischemic heart disease and other diseases of the circulatory system; K31.84 Gastroparesis; F41.9 Anxiety disorder, unspecified; M41.9 Scoliosis, unspecified; I27.20 Pulmonary hypertension, unspecified; J81.1 Chronic pulmonary edema; E03.9 Hypothyroidism, unspecified; E78.5 Hyperlipidemia, unspecified; D50.0 Iron deficiency anemia secondary to blood loss (chronic); J84.9 Interstitial pulmonary disease, unspecified; J44.9 Chronic obstructive pulmonary disease, unspecified; I51.9 Heart disease, unspecified; R14.0 Abdominal distension (gaseous); M34.9 Systemic sclerosis, unspecified
CPT/HCPCS: 43450; 43235; J2704; J7120

== ENCOUNTER 2022-06-05 12:41 | Outpatient (CLI) | payer MEDICARE, SELFPAY ==
[2022-06-05 13:00] VITALS: PULSE 86; O2SAT 93
[2022-06-05 13:05] VITALS: PULSE 101; O2SAT 85
[2022-06-05 13:06] VITALS: O2SAT 86
[2022-06-05 13:07] VITALS: O2SAT 87
[2022-06-05 13:08] VITALS: O2SAT 90
[2022-06-05 13:15] VITALS: PULSE 92; O2SAT 92
--- NOTE | 2022-06-05 13:39 | HOMEO2EVAL ---
Evaluation was performed at [facility] Home Oxygen Evaluation RC: Home Oxygen (O2) Evaluation Start: 06/05/22 13:37 Freq: Status: Active Protocol: RPE Activity Type Activity Date Activity User E-sign Co-sign Detail Recorded Client Recorded Date Recorded By Document 06/05/22 13:00 MUNIRA [email or web address] 06/05/22 13:39 MUNIRA Document 06/05/22 13:05 MUNIRA [email or web address] 06/05/22 13:39 MUNIRA Document 06/05/22 13:06 MUNIRA [email or web address] 06/05/22 13:39 MUNIRA Document 06/05/22 13:07 MUNIRA [email or web address] 06/05/22 13:39 MUNIRA Document 06/05/22 13:08 MUNIRA [email or web address] 06/05/22 13:39 MUNIRA Document 06/05/22 13:15 MUNIRA [email or web address] 06/05/22 13:39 MUNIRA 06/05/22 06/05/22 06/05/22 13:00 13:05 13:06 Home O2 Evaluation [Oxygen] -Test Phase Resting Exercise Exercise -Oxygen Delivery Room Air Room Air Nasal Cannula -Oxygen Flow Rate (L/min) 1 [Pulse Oximetry] -Pulse Oximetry (90-100 %) 93 85 L 86 L [Pulse Rate] -Pulse Rate (60-100 beats/min) 86 101 H [Comments] -Home Oxygen Evaluation Comments [Charges] -Treatment Charges O2 Evaluation - Outpatient 06/05/22 06/05/22 06/05/22 13:07 13:08 13:15 Home O2 Evaluation [Oxygen] -Test Phase Exercise Exercise Resting -Oxygen Delivery Nasal Cannula Nasal Cannula Room Air -Oxygen Flow Rate (L/min) 2 3 [Pulse Oximetry] -Pulse Oximetry (90-100 %) 87 L 90 92 [Pulse Rate] -Pulse Rate (60-100 beats/min) 92 [Comments] -Home Oxygen Evaluation Comments Patient requires 3 liters home O2 with activity [Charges] -Treatment Charges
--- NOTE | 2022-06-05 13:40 | PCRCNOTE ---
[facility] o[facility] [facility]. This is a new home o2 set up. Pt requests that [facility] does NOT provide equipment, had problems with their service in the past.
== END 2022-06-05 12:42 | disposition home or self-care (01) ==
PROVIDERS: PCP Internal Medicine; Visit Provider Internal Medicine Critical Care Medicine
DX: Z99.81 Dependence on supplemental oxygen (principal)
CPT/HCPCS: 94618

== ENCOUNTER 2023-03-09 11:43 | Emergency (ER) | payer MEDICARE, SELFPAY ==
--- NOTE | ~2023-03-09 | XR_ITS ---
Clinical Indication: Chest pain PA and lateral views of the chest: Comparison: 09/29/2020 Findings: The lungs are clear, without evidence of focal consolidation or pleural effusion. Cardiome diastinal silhouette is within normal limits. Stable prominent dextroscoliosis of the thoracolumbar s pine. Impression: Clear lungs. Reviewed, dictated and finalized at location . CAL RECORD TRANSCRIBER Impression: Clear lungs.
--- NOTE | ~2023-03-09 | CT_ITS ---
EXAMINATION: CTA chest abdomen pelvis DATE: 03/09/2023 13:11 INDICATION: Chest, back, and neck pain TECHNIQUE: Computed tomographic angiography (CTA) of the chest, abdomen, and pelvis was performed wit h 100 mL Omnipque-350 intravenous contrast. Maximum intensity projection 3D-reconstructions of the ao rta and other arteries were constructed by the technologist on a separate workstation. The dose-lengt h product (DLP) was 254.37 mGy-cm. Automated exposure control and iterative reconstruction technique were employed. COMPARISON: 11/09/2020 FINDINGS: CHEST CTA: No aneurysm or dissection of the aorta. There is mild pulmonary edema. Dependent atelectasis is noted . There are trace pleural effusions. No pneumothorax is identified. No pathologically enlarged thorac ic lymph nodes are identified. The heart size is normal. Although not specifically timed for evaluati on of the pulmonary arteries, no pulmonary embolus is identified. There is enlargement of the main an d central pulmonary arteries, consistent with pulmonary hypertension. There are 50 degrees of thoraco lumbar dextroscoliosis. There is mild thoracic spondylosis. ABDOMEN AND PELVIS CTA: No aneurysm or dissection. The celiac axis, superior mesenteric artery, and inferior mesenteric arter y are normal at their origins. There are single renal arteries. Changes of cholecystectomy are noted. The liver, spleen, pancreas, and adrenal glands are normal. The kidneys are unremarkable. No patholo gically enlarged abdominal or pelvic lymph nodes are identified. No free intraperitoneal gas or evide nce of bowel obstruction. A moderate volume of colonic stool is present. There is mild lumbar spondyl osis. IMPRESSION: 1. No aneurysm or dissection of the aorta. 2. Mild pulmonary edema. Reviewed, dictated and finalized at location B. ACTOR OPERATOR
--- NOTE | 2023-03-09 11:46 | ECG_ITS ---
Measurements Intervals Bruno Rate: 69 P: 57 MA: 169 QRS: 89 QRSD: 90 T: 77 QT: 392 QTc: 421 Interpretive Statements SINUS RHYTHM FREQUENT ATRIAL PREMATURE COMPLEXES DELAYED PRECORDIAL R/S TRANSITION BASELINE ARTIFACT- I, II, III, AVR, AVL, AVF, V1-V6 ABNORMAL ECG NO PREVIOUS ECG AVAILABLE FOR COMPARISON Electronically Signed On 03-09-2023 12:33:06 [employer] by Rock Colunga D.O.
[2023-03-09 11:49] VITALS: BP 121/98; PULSE 68; RESP 96; TEMP 36.9; O2SAT 97
[2023-03-09 12:08] VITALS: PULSE 72
[2023-03-09 12:10] VITALS: BP 136/72; PULSE 75; RESP 19; O2SAT 100
[2023-03-09 12:14] LABS: Basophils Absolute Auto 0.1 K/mm3 (0.0-0.1); Basophils Percent Auto 1.9 % (0.2-1.2); Eosinophils Absolute Auto 0.3 K/mm3 (0-0.3); Eosinophils Percent Auto 5.2 % (0-4.4); Hematocrit 40.9 % (37.0-47.0); Hemoglobin 13.1 g/dL (12.0-15.0); Immature Granulocyte Absolute 0.02 K/mm3 (0.00-0.031); Immature Granulocyte Percent A 0.4 % (0-0.5); Lymphocytes Absolute Auto 1.33 K/mm3 (0.9-3.2); Lymphocytes Percent Auto 25.8 % (18.3-44.2); Mean Corpuscular Hemoglobin 30.6 pg (26-34); Mean Corpuscular Volume 95.6 fl (80-100); Mean Platelet Volume 9.2 fl (7.4-10.4); Monocytes Absolute Auto 0.5 K/mm3 (0.1-0.6); Monocytes Percent Auto 8.7 % (2.6-8.5); Platelet Count Result 171 k/mm3 (150-375); Red Blood Count 4.28 M/mm3 (4.2-5.4); Red Cell Distribution Width 13.1 % (11.5-14.5); White Blood Count 5.2 K/mm3 (4.5-10.0)
[2023-03-09 12:23] LABS: Alanine Aminotransferase 24 U/L (6-35); Albumin Level 4.5 g/dL (3.5-5.1); Alkaline Phosphatase 127 U/L (38-126); Anion Gap 11 mmol/L (8-16); Aspartate Amino Transferase 36 U/L (14-36); Bilirubin,Total 0.6 mg/dL (0.2-1.3); Blood Urea Nitrogen 11 mg/dL (7-17); Calcium 9.4 mg/dL (8.4-10.2); Carbon Dioxide 25 mmol/L (22-30); Chloride 104 mmol/L (98-107); Estimated Glomerular Filt Rate 49; Glucose 99 mg/dL (65-110); Lipase 100 U/L (23-300); Potassium 3.7 mmol/L (3.4-5.0); Sodium 140 mmol/L (137-145)
[2023-03-09 12:28] LABS: INR 0.9; Prothrombin Time 12.6 Seconds (11.1-14.7)
[2023-03-09 12:29] LABS: Partial Thromboplastin Time 35.1 SECONDS (22.3-36.8)
[2023-03-09 12:35] LABS: Troponin I < 0.012 ng/mL (0.000-0.034)
--- NOTE | 2023-03-09 12:49 | ED.CHESTPAIN ---
HPI - Chest Pain General Chief Complaint: Chest Pain Stated Complaint: left arm tingling, cp Time Seen by Provider: 03/09/23 12:04 History of Present Illness HPI narrative: Patient is a 67-year-old female with history of scleroderma, pulmonary hypertension, anxiety, hyperlipidemia, hypothyroidism presenting with left chest pain and tingling. Patient states that she was getting dressed this morning when she developed left-sided chest pain that went into her back and her left axilla. States that she is having intermittent paresthesias around her mouth as well as in her arms and her legs. States that the pain has currently improved but she now has tingling in her legs. States that she felt short of breath earlier but this has resolved. No weakness, vision or speech changes, lightheadedness, nausea or vomiting, diarrhea, dysuria. States that she did have an episode of epigastric pain. Related Data Home Medications Medication Instructions Recorded Confirmed furosemide 20 mg tablet See Rx Instructions .Route .COMPLEX 07/06/21 01/29/23 cetirizine 10 mg tablet (Allergy 10 mg PO DAILY PRN Allergy Symptoms 10/27/21 01/29/23 Relief (cetirizine)) inulin 2,500 mg-vitamin D3 500 tablet PO 08/14/22 01/29/23 unit chewable tablet (Fiber Gummies with Vitamin D3) cholecalciferol (vitamin D3) 50 50 mcg PO DAILY 01/16/23 01/29/23 mcg (2,000 unit) capsule cyanocobalamin (vitamin B-12) 1,000 mcg PO DAILY 01/16/23 01/29/23 1,000 mcg capsule spironolactone 25 mg tablet 12.5 mg PO DAILY 01/22/23 01/29/23 buspirone 10 mg tablet 5 mg PO TID 01/29/23 01/29/23 Allergies Allergy/AdvReac Type Severity Reaction Status Date / Time latex Allergy Mild RASH Verified 03/09/23 12:11 naproxen Allergy Unknown Nausea Verified 03/09/23 12:11 Review of Systems Review of Systems: All systems reviewed & are unremarkable except as noted in HPI and below PMFSH Past Medical History Medical History Abnormal PFT Acute recurrent sinusitis Adult BMI 19-24 kg/sq m Adult BMI <19 kg/sq m Anxiety BMI 20.0-20.9, adult Chronic obstructive pulmonary disease (COPD) suggested by initial evaluation CKD (chronic kidney disease) Closed fracture of left wrist Cognitive changes Cough Diarrhea Diastolic dysfunction Edema Elevated homocysteine Elevated serum creatinine Encounter for Medicare annual wellness exam Encounter for routine adult health examination without abnormal findings Esophageal stricture Family history of early CAD Fever Follow up Fracture, jaw Gastroparesis GERD (gastroesophageal reflux disease) Hearing loss Herpes zoster without complication Hospital discharge follow-up Hx of colonic polyps Hyperlipidemia Hypothyroidism (acquired) Interstitial lung disease Iron deficiency anemia Itching Nasal sinus congestion On termite treater helper drug therapy Parainfluenza Pleuritic chest pain Pulmonary edema Pulmonary hypertension associated with systemic disorder Right ear pain Scleroderma Scoliosis Shortness of breath Sinus drainage Skin plaque Statin intolerance Stress Swelling of lymph node TMJ (temporomandibular joint syndrome) Unexplained weight loss Unintentional weight loss Family History Family History Father Cerebrovascular accident Family history of coronary artery disease Grandparent Acute myocardial infarction Social History Social History Smoking status: Never smoker Second hand tobacco smoke exposure: No Alcohol intake: never Substance use: never Substance use type: does not use Living arrangements: with family Spiritual care concerns: No Exam Narrative: GENERAL: Thin elderly female sitting in bed in no acute distress, pleasant and cooperative HEAD: Normocephalic, atraumatic. EYES: PERRLA and EOMI. ENT: Mucous membranes tacky NECK:
[2023-03-09 12:54] VITALS: BP 110/59; PULSE 68; RESP 17; O2SAT 98
[2023-03-09] MEDS: SODIUM CHLORIDE 0.9% IV 1,000 ML 999 ML IV CONT (12:54)
[2023-03-09 13:14] LABS: Appearance Urine Clear (Clear); Bilirubin Urine Negative (Negative); Blood Urine Negative (Negative); Color Urine Yellow (Yellow); Glucose Urine UA Negative (Negative); Ketones Urine Negative (Negative); Leukocyte Esterase Ur Negative LEU/UL (Negative); Nitrate Urine Negative (Negative); Protein Urine Negative (Negative); Specific Grav Ur 1.011 (1.001-1.035); Urobilinogen Urine 0.2 mg/dL (<2.0)
[2023-03-09 13:24] LABS: Add Urine Microscopic? NO
[2023-03-09 13:48] VITALS: BP 113/63; PULSE 78; RESP 19; O2SAT 100
[2023-03-09 15:34] LABS: Troponin I < 0.012 ng/mL (0.000-0.034)
[2023-03-09 16:21] VITALS: BP 125/97; PULSE 66; RESP 18; O2SAT 97
== END 2023-03-09 16:22 | disposition home or self-care (01) ==
PROVIDERS: Emergency Medicine; Emergency Provider Emergency Medicine; PCP Internal Medicine
DX: R07.89 Other chest pain (principal); M79.602 Pain in left arm; R20.2 Paresthesia of skin; I10 Essential (primary) hypertension; E78.5 Hyperlipidemia, unspecified; E03.9 Hypothyroidism, unspecified; J44.9 Chronic obstructive pulmonary disease, unspecified; N18.9 Chronic kidney disease, unspecified
CPT/HCPCS: 36415; 71046; 71275; 74174; 80053; 81003; 83690; 84484; 85025; 85610; 85730; 93005; 99284; J7030; Q9967

== ENCOUNTER → 2023-03-19 11:05 | Outpatient (CLI) | payer MEDICARE, SELFPAY ==
--- NOTE | ~2023-03-19 | XR_ITS ---
XR shoulder LT min 2V 03/19/2023 11:34 Indication: Left shoulder pain Procedure: 4 views left shoulder Comparison: No prior studies for comparison. Findings: Osteopenia. No fracture, subluxation or dislocation. There is anatomic alignment. No foreig n bodies. Impression: 1: No acute bone or joint abnormality. Reviewed, dictated and finalized at location B. IVING MANAGER Impression: 1: No acute bone or joint abnormality.
== END ==
PROVIDERS: PCP Internal Medicine; Visit Provider Internal Medicine
DX: M25.512 Pain in left shoulder (principal); M25.612 Stiffness of left shoulder, not elsewhere classified
CPT/HCPCS: 73030

== ENCOUNTER 2023-04-15 15:31 | Emergency (ER) | payer MEDICARE, SELFPAY ==
[2023-04-15] VITALS (11 sets, daily range): BP systolic 95–128; BP diastolic 59–75; PULSE 70–83; RESP 14–18; TEMP 36.6; O2SAT 91–100
--- NOTE | ~2023-04-15 | XR_ITS ---
EXAMINATION: XR chest 2V Exam Date/Time: 04/15/2023 16:40 MIXING PAN TENDER HISTORY: BLURRED VISION, DIZZINESS, PULMONARY HTN X 3 DAYS Comparison: 03/09/2023. RESULT: Lines, tubes, and devices: Cholecystectomy clips. Lungs and pleura: Senescent change. Slightly increased diffuse reticular opacities. Right basilar sc ar/atelectasis. Cardiomediastinal silhouette: Stable. Other: No acute osseous or upper abdominal finding. Severe thoracolumbar scoliosis. IMPRESSION: Mild interstitial edema. Reviewed, dictated and finalized at location K. NG PAN TENDER IMPRESSION: Mild interstitial edema.
--- NOTE | 2023-04-15 15:43 | ECG_ITS ---
Measurements Intervals [place] Rate: 77 P: 70 UT: 169 QRS: 83 QRSD: 96 T: 63 QT: 377 QTc: 428 Interpretive Statements SINUS RHYTHM POSSIBLE LEFT ATRIAL ENLARGEMENT [-0.1mV P WAVE IN V1/V2] INDETERMINATE AXIS POOR R-WAVE PROGRESSION ABNORMAL ECG COMPARED TO ECG 03/09/2023 11:51:17 NO SIGNIFICANT CHANGES Electronically Signed On 04-16-2023 7:19:34 ELECTRICAL TRYOUT PERSON by Preet Hdez M.D.
[2023-04-15] MEDS: SODIUM CHLORIDE 0.9% IV 1,000 ML 999 ML IV CONT ×2 (16:20→17:58)
[2023-04-15 16:25] LABS: Appearance Urine Clear (Clear); Basophils Absolute Auto 0.1 K/mm3 (0.0-0.1); Basophils Percent Auto 1.3 % (0.2-1.2); Bilirubin Urine Negative (Negative); Blood Urine Negative (Negative); Color Urine Yellow (Yellow); Eosinophils Absolute Auto 0.2 K/mm3 (0-0.3); Eosinophils Percent Auto 2.9 % (0-4.4); Glucose Urine UA Negative (Negative); Hematocrit 38.8 % (37.0-47.0); Hemoglobin 12.6 g/dL (12.0-15.0); Immature Granulocyte Absolute 0.03 K/mm3 (0.00-0.031); Immature Granulocyte Percent A 0.4 % (0-0.5); Ketones Urine Negative (Negative); Leukocyte Esterase Ur Negative LEU/UL (Negative); Lymphocytes Absolute Auto 1.35 K/mm3 (0.9-3.2); Mean Corpuscular HGB Conc 32.5 g/dl (32-36); Mean Corpuscular Hemoglobin 30.9 pg (26-34); Mean Corpuscular Volume 95.1 fl (80-100); Monocytes Absolute Auto 0.6 K/mm3 (0.1-0.6); Neutrophils Absolute Auto 5.2 K/mm3 (1.3-6.7); Neutrophils Percent Auto 69.4 % (45.5-73.1); Nitrate Urine Negative (Negative); Platelet Count Result 213 k/mm3 (150-375); Protein Urine Negative (Negative); Red Blood Count 4.08 M/mm3 (4.2-5.4); Red Cell Distribution Width 13.1 % (11.5-14.5); Specific Grav Ur 1.005 (1.001-1.035); Urobilinogen Urine 0.2 mg/dL (<2.0); White Blood Count 7.5 K/mm3 (4.5-10.0)
[2023-04-15 16:27] LABS: Add Urine Microscopic? NO
--- NOTE | 2023-04-15 16:30 | ED.DIZZY ---
HPI - Dizziness General Chief Complaint: Dizziness Stated Complaint: dizziness/headache Time Seen by Provider: 04/15/23 15:46 History of Present Illness HPI Narrative: 67-year-old female presenting with lightheadedness. States that she was at the [facility] earlier when she had a couple episodes of some nausea and lightheadedness. States that on the 2nd or 3rd episode she felt like she was about to pass out so she had to sit down. States that she felt warm especially in her ears. No chest pain or shortness of breath. States that she has had a productive cough lately. No leg swelling. States that she had palpitations earlier this morning but not during this episode. She does not think that she has been eating or drinking enough. No fevers, abdominal pain, vomiting, diarrhea, dysuria. Related Data Home Medications Medication Instructions Recorded Confirmed furosemide 20 mg tablet See Rx Instructions .Route .COMPLEX 07/06/21 03/16/23 cetirizine 10 mg tablet (Allergy 10 mg PO DAILY PRN Allergy Symptoms 10/27/21 03/16/23 Relief (cetirizine)) cholecalciferol (vitamin D3) 50 50 mcg PO DAILY 01/16/23 03/16/23 mcg (2,000 unit) capsule spironolactone 25 mg tablet 12.5 mg PO DAILY 01/22/23 03/16/23 Allergies Allergy/AdvReac Type Severity Reaction Status Date / Time latex Allergy Mild RASH Verified 04/15/23 15:32 naproxen AdvReac Unknown Nausea Verified 04/15/23 15:50 Review of Systems Review of Systems: All systems reviewed & are unremarkable except as noted in HPI and below PMFSH Past Medical History Medical History Abnormal PFT Acute recurrent sinusitis Adult BMI 19-24 kg/sq m Adult BMI <19 kg/sq m Anxiety BMI 20.0-20.9, adult Chest discomfort Chronic obstructive pulmonary disease (COPD) suggested by initial evaluation CKD (chronic kidney disease) Closed fracture of left wrist Cognitive changes Cough Diarrhea Diastolic dysfunction Edema Elevated homocysteine Elevated serum creatinine Encounter for Medicare annual wellness exam Encounter for routine adult health examination without abnormal findings Esophageal stricture Family history of early CAD Fever Follow up Fracture, jaw Gastroparesis GERD (gastroesophageal reflux disease) Hearing loss Herpes zoster without complication Hospital discharge follow-up Hx of colonic polyps Hyperlipidemia Hypothyroidism (acquired) Interstitial lung disease Iron deficiency anemia Itching Nasal sinus congestion On custodial drug therapy Parainfluenza Pleuritic chest pain Pulmonary edema Pulmonary hypertension associated with systemic disorder Right ear pain Scleroderma Scoliosis Shortness of breath Sinus drainage Skin plaque Statin intolerance Stress Swelling of lymph node TMJ (temporomandibular joint syndrome) Unexplained weight loss Unintentional weight loss Family History Family History Father Cerebrovascular accident Family history of coronary artery disease Grandparent Acute myocardial infarction Social History Social History Smoking status: Never smoker Second hand tobacco smoke exposure: No Alcohol intake: never Substance use: never Substance use type: does not use Lack of Transportation: No Lack of Food: Never True Current Housing: I Have Housing Concerned About Future Housing: No Difficulty Paying Gas/Electric Bills: No Difficulty Paying for Meds: No Currently Unemployed: No Education: Trade/Vocational Certificate Difficulty w/ Childcare or Family Care: No Living arrangements: with family Occupation/Education: retired Gender identity (if verbalized by the patient): Female Spiritual care concerns: No Exam Narrative: GENERAL: Well-appearing, In no acute distress, pleasant cooperative HEAD: Normocephalic, atraumatic.
[2023-04-15 16:38] LABS: Alanine Aminotransferase 16 U/L (6-35); Alkaline Phosphatase 106 U/L (38-126); Anion Gap 7 mmol/L (8-16); Aspartate Amino Transferase 29 U/L (14-36); Bilirubin,Total 0.6 mg/dL (0.2-1.3); Blood Urea Nitrogen 13 mg/dL (7-17); Calcium 8.5 mg/dL (8.4-10.2); Carbon Dioxide 25 mmol/L (22-30); Chloride 105 mmol/L (98-107); Estimated CRCL calculation 29 ml/min; Estimated Glomerular Filt Rate 45; Glucose 97 mg/dL (65-110); Potassium 3.2 mmol/L (3.4-5.0); Sodium 137 mmol/L (137-145)
[2023-04-15 17:01] LABS: INR 1.1; Prothrombin Time 14.4 Seconds (11.1-14.7)
[2023-04-15 17:02] LABS: Partial Thromboplastin Time 37.5 SECONDS (22.3-36.8)
[2023-04-15 17:04] LABS: Lactic Acid Reflex 0.7 mmol/L (0.7-2.0); Lipase 91 U/L (23-300); Magnesium 2.1 mg/dL (1.6-2.3)
[2023-04-15 17:17] LABS: Troponin I < 0.012 ng/mL (0.000-0.034)
[2023-04-15] MEDS: POTASSIUM CHLORIDE 20 MEQ ER TABLET 40 MEQ PO (19:44)
[2023-04-15 20:06] LABS: Troponin I < 0.012 ng/mL (0.000-0.034)
== END 2023-04-15 21:15 | disposition home or self-care (01) ==
PROVIDERS: Emergency Medicine; Emergency Provider Emergency Medicine; PCP Internal Medicine
DX: E87.6 Hypokalemia (principal); I95.1 Orthostatic hypotension; N18.9 Chronic kidney disease, unspecified; K31.84 Gastroparesis; K21.9 Gastro-esophageal reflux disease without esophagitis; Z86.010 Personal history of colon polyps; E03.9 Hypothyroidism, unspecified; E78.5 Hyperlipidemia, unspecified; J84.9 Interstitial pulmonary disease, unspecified; D50.9 Iron deficiency anemia, unspecified; I27.20 Pulmonary hypertension, unspecified; M34.9 Systemic sclerosis, unspecified; J81.1 Chronic pulmonary edema
CPT/HCPCS: 36415; 71046; 80053; 81003; 83605; 83690; 83735; 84484; 85025; 85610; 85730; 93005; 96360; 96361; 99284; A9270; J7030

== ENCOUNTER 2023-12-26 16:19 | Emergency (ER) | payer MEDICARE, SELFPAY ==
--- NOTE | ~2023-12-26 | CT_ITS ---
EXAMINATION: CT cervical spine wo con DATE: 12/26/2023 18:23 INDICATION: Fall. TECHNIQUE: Computed tomography (CT) of the cervical spine was performed without intravenous contrast. Automated exposure control and iterative reconstruction technique were employed. The dose-length pro duct was 605.33 mGy-cm. COMPARISON: None FINDINGS: The lungs demonstrate significant septal thickening, consistent with mild pulmonary edema. There is 7 degrees dextrocurvature of cervical spine. Vertebral body heights are normal. There is mod erately decreased disc height at C5-C6. The following disc levels are specifically discussed: C2-C3: There is mild right uncovertebral joint osteoarthritis. There is no facet joint osteoarthritis . There is no neural foraminal stenosis. There is no central canal stenosis. C3-C4: There is no uncovertebral joint osteoarthritis. There is no facet joint osteoarthritis. There is no neural foraminal stenosis. There is no central canal stenosis. C4-C5: There is no uncovertebral joint osteoarthritis. There is no facet joint osteoarthritis. There is no neural foraminal stenosis. There is no central canal stenosis. C5-C6: There is mild right and severe left uncovertebral joint osteoarthritis. There is mild bilatera l facet joint osteoarthritis. There is mild left neural foraminal stenosis. There is mild central can al stenosis. C6-C7: There is no uncovertebral joint osteoarthritis. There is mild bilateral facet joint osteoarthr itis. There is no neural foraminal stenosis. There is no central canal stenosis. C7-T1: There is no uncovertebral joint osteoarthritis. There is mild bilateral facet joint osteoarthr itis. There is no neural foraminal stenosis. There is no central canal stenosis. IMPRESSION: 1. No fracture. 2. Moderate spondylosis at C5-C6 and mild spondylosis at other levels. Reviewed, dictated and finalized at location A.
--- NOTE | ~2023-12-26 | XR_ITS ---
EXAMINATION: XR hip RT 2V w AP pelvis DATE: 12/26/2023 18:06 INDICATION: Right hip pain. Fall. TECHNIQUE: An anteroposterior view of the pelvis and 2 views of. Were obtained. COMPARISON: CT 03/09/2023 FINDINGS: There is lumbar dextroscoliosis and lumbar spondylosis. No fracture. There is moderate oste oarthritis of the hips. IMPRESSION: 1. Moderate osteoarthritis of the hips. Reviewed, dictated and finalized at location A.
--- NOTE | ~2023-12-26 | CT_ITS ---
EXAMINATION: CT brain wo con DATE: 12/26/2023 18:23 INDICATION: Fall. TECHNIQUE: Computed tomography (CT) of the head was performed without intravenous contrast. The mA wa s adjusted according to patient size. Iterative reconstruction technique was employed. The dose-lengt h product was 605.33 mGy-cm. COMPARISON: None FINDINGS: There are scattered areas of low attenuation in the cerebral white matter, which is within normal limits for the patient's age. There is no intracranial hemorrhage, acute infarction, or abnorm al intracranial mass lesion. The ventricles are normal in size. There is mild mucosal thickening in t he paranasal sinuses. There are bilateral mastoid effusions. IMPRESSION: 1. Normal aging brain. Reviewed, dictated and finalized at location A. IMPRESSION: 1. Normal aging brain.
--- NOTE | ~2023-12-26 | XR_ITS ---
EXAMINATION: XR elbow RT 2V DATE: 12/26/2023 18:06 INDICATION: Right elbow pain. Fall. TECHNIQUE: 2 views of right elbow were obtained. COMPARISON: None. FINDINGS: Alignment is normal. No fracture. Joint spaces are normal. No elbow joint effusion. IMPRESSION: 1. Normal right elbow. Reviewed, dictated and finalized at location A. IMPRESSION: 1. Normal right elbow.
--- NOTE | ~2023-12-26 | CT_ITS ---
EXAMINATION:CT diagnostic chest wo con DATE: 12/26/2023 18:23 INDICATION: Right rib tenderness. Fall. TECHNIQUE: Computed tomography (CT) of the chest was performed without intravenous contrast. Automate d exposure control and iterative reconstruction technique were employed. The dose-length product (DLP ) was 605.33 mGy-cm. COMPARISON: Chest CT 03/09/2023 FINDINGS: The lungs demonstrate mild atelectasis. There is septal thickening in the lungs with mild g roundglass opacities, consistent mild pulmonary edema. There is a trace right pleural effusion. Cardi omegaly is noted. No pericardial effusion. There are coronary artery calcifications. Calcified right hilar and mediastinal lymph nodes are consistent with old granulomatous disease. There are changes of cholecystectomy. There is thoracic levoscoliosis and lumbar dextroscoliosis. IMPRESSION: 1. No rib fracture identified. 2. Mild pulmonary edema. Reviewed, dictated and finalized at location A.
--- NOTE | ~2023-12-26 | XR_ITS ---
EXAMINATION: XR knee RT 3V DATE: 12/26/2023 18:06 INDICATION: Right knee pain. Fall. TECHNIQUE: 3 views of right knee were obtained. COMPARISON: None. FINDINGS: Alignment is normal. No fracture. There is mild osteoarthritis of medial and lateral compar tments. No knee joint effusion. IMPRESSION: 1. Mild right knee osteoarthritis. Reviewed, dictated and finalized at location A.
[2023-12-26 16:21] VITALS: BP 135/76; PULSE 78; RESP 21; TEMP 36.6; O2SAT 98
--- NOTE | 2023-12-26 17:26 | ED.FALL ---
HPI - Fall General Chief Complaint: Fall Stated Complaint: fall Time Seen by Provider: 12/26/23 17:03 Source: patient Mode of arrival: ambulatory Limitations: no limitations History of Present Illness HPI Narrative: this is a 68-year-old female with PMH of osteoporosis who presents to the ED via EMS for chief complaint of a fall. Reports fall was mechanical in nature and she stumbled as she stepped down from the curb, while coming out of the store. Reports pain to the right hip, right elbow and right knee. States she was unable to bear weight due to pain. Denies head injury or LOC. Denies numbness, weakness, fevers, chills, chest pain, shortness of breath, abdominal pain, nausea, vomiting, neck pain or back pain. Related Data Home Medications Medication Instructions Recorded Confirmed furosemide 20 mg tablet See Rx Instructions .Route .COMPLEX 07/06/21 10/18/23 cetirizine 10 mg tablet (Allergy 10 mg PO DAILY PRN Allergy Symptoms 10/27/21 10/18/23 Relief (cetirizine)) cholecalciferol (vitamin D3) 50 50 mcg PO DAILY 01/16/23 10/18/23 mcg (2,000 unit) capsule spironolactone 25 mg tablet 12.5 mg PO DAILY 01/22/23 10/18/23 mecobalamin (vitamin B12) 1,000 1,000 mcg PO DAILY 06/04/23 10/18/23 mcg chewable tablet romosozumab-aqqg 105 mg/1.17 mL 210 mg subcut MONTHLY 06/07/23 10/18/23 subcutaneous syringe (Evenity) macitentan 10 mg tablet (Opsumit) 10 mg PO DAILY 10/18/23 10/18/23 tadalafil (pulm. hypertension) 20 40 mg PO DAILY 10/18/23 10/18/23 mg tablet (pulmonary hypertension) Allergies Allergy/AdvReac Type Severity Reaction Status Date / Time latex Allergy Mild RASH Verified 10/18/23 11:27 naproxen AdvReac Unknown Nausea Verified 10/18/23 11:27 statin intolerant Allergy Intermediate Muscle Pain Uncoded 10/18/23 11:27 Review of Systems Review of Systems: All systems as dictated in [facility] Past Medical History Medical History Abnormal PFT Acute recurrent sinusitis Adult BMI 19-24 kg/sq m Adult BMI <19 kg/sq m Anxiety BMI 20.0-20.9, adult Chest discomfort Chronic obstructive pulmonary disease (COPD) suggested by initial evaluation CKD (chronic kidney disease) Closed fracture of left wrist Cognitive changes Cough Diarrhea Diastolic dysfunction Edema Elevated homocysteine Elevated serum creatinine Encounter for Medicare annual wellness exam Encounter for routine adult health examination without abnormal findings Esophageal stricture Family history of early CAD Fever Follow up Fracture, jaw Gastroparesis GERD (gastroesophageal reflux disease) Hearing loss Herpes zoster without complication Hospital discharge follow-up Hx of colonic polyps Hyperlipidemia Hypothyroidism (acquired) Interstitial lung disease Iron deficiency anemia Itching Nasal sinus congestion On penitentiary drug therapy Parainfluenza Pleuritic chest pain Pulmonary edema Pulmonary hypertension associated with systemic disorder Right ear pain Scleroderma Scoliosis Shortness of breath Sinus drainage Skin plaque Statin intolerance Stress Swelling of lymph node TMJ (temporomandibular joint syndrome) Unexplained weight loss Unintentional weight loss Family History Family History Father Cerebrovascular accident Family history of coronary artery disease Grandparent Acute myocardial infarction Social History Social History Smoking status: Never smoker Second hand tobacco smoke exposure: No Alcohol intake: never Substance use: never Substance use type: does not use Lack of Transportation: No Lack of Food: Never True Current Housing: I Have Housing Concerned About Future Housing: No Difficulty Paying Gas/Electric Bills: No Difficulty Paying for Meds: No Currently Unemployed: No Education: Trade/Vocational Certificate Difficu
[2023-12-26] MEDS: MORPHINE SULFATE (*CRX) 4 MG/ML INJ IV PUSH (17:36)
[2023-12-26] MEDS: ONDANSETRON INJ 4 MG/2 ML VIAL IV PUSH (17:36)
[2023-12-26 18:00] VITALS: BP 144/78; PULSE 90; RESP 16; O2SAT 100
[2023-12-26 19:10] VITALS: BP 140/80; PULSE 100; RESP 16; O2SAT 95
== END 2023-12-26 19:15 | disposition home or self-care (01) ==
PROVIDERS: Emergency Provider Physician Assistant; PCP Internal Medicine
DX: S59.901A Unspecified injury of right elbow, initial encounter (principal); S79.911A Unspecified injury of right hip, initial encounter; S89.91XA Unspecified injury of right lower leg, initial encounter; N18.9 Chronic kidney disease, unspecified; I51.89 Other ill-defined heart diseases; I27.29 Other secondary pulmonary hypertension; E78.5 Hyperlipidemia, unspecified; E03.9 Hypothyroidism, unspecified; J81.1 Chronic pulmonary edema; J84.9 Interstitial pulmonary disease, unspecified; K21.9 Gastro-esophageal reflux disease without esophagitis; K31.84 Gastroparesis; D50.9 Iron deficiency anemia, unspecified; M34.9 Systemic sclerosis, unspecified; F41.9 Anxiety disorder, unspecified; Z86.010 Personal history of colon polyps; Z79.899 Other long term (current) drug therapy; M16.0 Bilateral primary osteoarthritis of hip; M17.11 Unilateral primary osteoarthritis, right knee; M47.812 Spondylosis without myelopathy or radiculopathy, cervical region; W10.1XXA Fall (on)(from) sidewalk curb, initial encounter
CPT/HCPCS: 70450; 71250; 72125; 73070; 73502; 73562; 96374; 96375; 99284; J2270; J2405

== ENCOUNTER 2024-01-01 15:24 | Outpatient (CLI) | payer MEDICARE, SELFPAY ==
--- NOTE | ~2024-01-01 | CT_ITS ---
EXAMINATION: CT pelvis wo con DATE: 01/01/2024 15:42 INDICATION: Pelvic and right hip pain post fall TECHNIQUE: High resolution computed tomography (CT) of the pelvis was performed without intravenous c ontrast. Additional sagittal and coronal reconstructions were performed. Automated exposure control a nd iterative reconstruction technique were employed. The dose-length product was 167.42 mGy-cm. COMPARISON: Radiographs dated 12/26/2023 FINDINGS: 2-3 mm distraction of a transverse avulsion fracture extending across the right greater trochanter. N o other fractures identified. Mild osteoarthritis at the bilateral hips. Alignment is otherwise gabino l. Mild osteoarthritis at the bilateral hip and sacroiliac joints. Cholecystectomy clips the inferior gallbladder fossa. There are scattered colonic diverticula in the pelvis without adjacent comparison to suggest diverticulitis. Decompressed bladder, uterus and bilateral adnexa are unremarkable. No fr ee fluid in the pelvis. No pathologically enlarged pelvic or inguinal lymphadenopathy. IMPRESSION: 1. Right greater trochanteric avulsion fracture at 2-3 mm proximal distraction Reviewed, dictated and finalized at location A.
== END 2024-01-01 15:25 | disposition home or self-care (01) ==
PROVIDERS: PCP Internal Medicine; Visit Provider Internal Medicine
DX: S72.111A Displaced fracture of greater trochanter of right femur, initial encounter for closed fracture (principal); R10.2 Pelvic and perineal pain; W19.XXXA Unspecified fall, initial encounter
CPT/HCPCS: 72192

== ENCOUNTER 2024-07-03 14:04 | Outpatient (CLI) | payer MEDICARE, SELFPAY ==
--- NOTE | ~2024-07-03 | XR_ITS ---
3 VIEWS PARANASAL SINUSES Ordering provider: Shane Puckett MD History: . R05.9 - Cough, unspecified . Comparison: None. FINDINGS: BONES: No acute fracture as visualized. PARANASAL SINUSES: Well aerated. No air fluid levels. SOFT TISSUES: Normal. IMPRESSION: NO EVIDENCE OF SINUS DISEASE. Reviewed, dictated and finalized at location A. UCT MANAGEMENT ANALYST
--- NOTE | ~2024-07-03 | XR_ITS ---
CHEST RADIOGRAPH, PA AND LATERAL CLINICAL HISTORY: R05.9 - Cough, unspecified . COMPARISON: 04/15/2023 TECHNIQUE: PA and lateral views of the chest. FINDINGS 70 degrees of dextroscoliotic curvature of the thoracic spine is identified. This markedly distorts the cardiomediastinal silhouette, which is otherwise unremarkable. Biapical scarring. The lungs are clear. IMPRESSION: No focal infiltrate or effusion. Reviewed, dictated and finalized at location A. ICIAN OBSTETRICIAN
== END 2024-07-03 14:05 | disposition home or self-care (01) ==
LOC: MICIMG 14:05
PROVIDERS: PCP Internal Medicine; Visit Provider Internal Medicine
DX: R05.9 Cough, unspecified (principal); R09.81 Nasal congestion
CPT/HCPCS: 70220; 71046

== ENCOUNTER → 2025-01-06 12:48 | Outpatient (CLI) | payer MEDICARE, SELFPAY ==
--- OUTSIDE RECORDS SUMMARY | 2022-08-30 14:00 | XMS_ITS | Encounter Summary ---
Author Organization [facility] Address [address] [place] [address] Phone Care Team Providers Care Curator [employer] Name Role Phone Shane Puckett MD Primary Care Provider [phone] Ulises GARSIA MD, Kurt Celis Unavailable [phone] Ingris Katz MD Unavailable [phone] Manuel Weiss MD Unavailable [phone] Reason for Referral * Procedure (Routine) - Closed Specialty Diagnoses / Procedures Referred By Briana t Referred To Contact Diagnoses Pulmonary artery hypertension Procedures Pulmonary Function Test -[facility] Adult PFT Lab- [facility]; Spirometry, Lung Volumes; Pleth with Airway Resistance Manuel Weiss MD [address] [place] [address] Phone: tel: fax: Referral ID Status Reason Start Date Expiration Date Visits Re quested Visits Authorized [id number] Closed 08/16/2022 09/15/2023 1 1 Reason for Visit * Procedure (Routine) - Closed Specialty Diagnoses / Procedures Referred By Contac t Referred To Contact Diagnoses Pulmonary artery hypertension Procedures Pulmonary Function Test -[facility]- [facility]; Spirometry, Lung Volumes; Pleth with Airway Resistance Manuel Weiss MD [address] [place] [address] Phone: tel: fax: Referral ID Status Reason Start Date Expiration Date Visits Re quested Visits Authorized [id number] Closed 08/16/2022 09/15/2023 1 1 Encounter Details Date Type Department Care Team (Latest Contact Info) Description 08/30/2022 2:00 PM CDT Hospital Encounter [facility] Medicine PFT Lab [address] [facility] [address] [place] [phone] Pulmonary artery hypertension (HCC) Social History Tobacco [...] making you feel afraid or unsafe? Denies 04/24/2024 Comments No Sex and Gender Information Value Date Recorded Sex Assigned at Not on file Legal Sex Female 11:34 AM CDT Gender Identity Female 10/25/2021 9:40 AM CDT Sexual Orientation Straight 10/25/2021 9: 40 AM CDT documented as of this encounter Functional Status * AUDIT-C Score Answer Date of Assessment Author 0 04/24/2024 7:59 AM Ra elva Harvey RN * Question Answer Date of Assessment Author Q1: [...] Never 04/24/2024 7:59 AM Kala Harvey RN documented as of this encounter Plan of Treatment Not on file documented as of this encounter Procedures Procedure Name Priority Date/Time Associated Diagnosis Comments PULMONARY FUNCTION TEST (PFT) Routine 08/30/2022 2:24 PM CDT Pulmonary artery hypertension (HCC) documented in this encounter Results * Pulmonary Function Test - (08/30/2022 2:24 PM CDT) FVC PRE 1.96 L [facility] FVC %PRE PRED 72 % [facility] FEV1 PRE 1.60 L [facility] FEV1 %PRE PRED 75 % [facility] FEV1/FVC PRE 81.8 % [facility] FRC PL PRE 2.55 L [facility] FRC PL %PRE PRED 94 % [facility] RV PRE 1.86 L [facility] RV %PRE PRED 90 % [facility] TLC PRE 4.01 L [facility] TLC %PRE PRED 84 % [facility] Anatomical Region Laterality Modality PFT 08/30/2022 2:07 PM CDT Narrative 09/03/2022 8:57 PM CDT SEE PDF PFT performed at:->[facility] Procedure:->Spirometry Procedure:->Lung Volumes Lung Volumes via:->Pleth with Airway Resistance us Manuel Weiss MD PFT ORDERABLES Final Res ult documented in this encounter Visit Diagnoses Diagnosis Pulmonary artery hypertension Other chronic pulmonary heart diseases documented in this encounter Care Teams Curator [employer] Relationship Specialty Start Date End Date Shane Puckett MD [address] [place] [address] PCP - General Internal Medicine 08/17/17 Kurt Montgomery III, MD [address] [place] [address] Consulting Physician Rheumatology 11/10/20 03/07/23 Ingris Katz MD [address] [place] [address] Consulting Physician Critical Care Med 12/22/20 Manuel Weiss MD [address] [place] [address] Referring Physician Pulmonary Disease 06/03/21 documented as of this encounter
--- OUTSIDE RECORDS SUMMARY | 2023-12-12 12:30 | XMS_ITS ---
Author Organization [facility] [place] ([address]) Address [address] [place] [address] Care Team Providers Care Crew Mess Attendant Name Role Phone Shane Puckett Primary Care Provider UnavailXin Ho Unavailable [phone] REASON FOR VISIT ARC follow-up Encounters Encounter Location Date Provider Diagnosis [facility] [address] [place] [address] 12/12/2023 Xin Archibald Plan Of Treatment No Information Progress Notes * Elle CHAPMANOB:1955 ([age] yo F)Acc No.[id number]:12/12/2023 Progress Notes Patient: Soo BRADSHAW Provider: Delphine Archibald MD :1955 A ge:68 Y S ex:Female Date:12/12/2023 [address] [id number] Pcp:Shane Puckett Subjective: * Chief Complaints: * 1 . ARC follow-up. * Medical History: Objective: * Vitals: Assessment: Plan: * Treatment: * Billing Information: * Visit Code: * Procedure Codes: * Electronic signature of Evelin Archibald MD on 01/06/2025 at 11:13 AM CDT Sign off status: Pending * Provider: Delphine Archibald MD Date: 0 12/12/2023 Generated for Jayden clarke/Tucker/Star on: 0 01/06/2025 11:13 AM CDT
--- OUTSIDE RECORDS SUMMARY | 2025-01-06 14:10 | XMS_ITS | Clinical Summary ---
Author Organization [facility] [place] [address] Address [address] [place] [address] Care Team Providers Care Director Mobile Name Role Phone Shane Puckett MD Primary Care Provider [phone] Ingris Katz MD Unavailable [phone] Manuel Weiss MD Unavailable [phone] Shane Gage MD Unavailable [phone] Allergies Active Allergy Reactions Criticality Noted Date Comments Latex Redness Low 08/05/2021 Atorvastatin Muscle pain Medium 11/25/2021 Patient has tried 2+ times with same response. Unable to tolerate Naproxen Unknown 07/04/2023 makes her feel funny Mroqwrc-Wbh-Ebs Reductase Inhibitors Muscle pain Medium 08/16/2022 Medications albuterol HFA (PROVENTIL HFA,VENTOLIN HFA,PROAIR HFA) 90 mcg/actuation inhalerIndicati ons:shortness of breath Inhale 2 puffs as needed for shortness of breath or wheezing Active folic acid (FOLVITE) 1 mg tabletIndicatio ns:Folate Deficiency Take 1 tablet (1,000 mcg total) by mouth every morning 021 Active sertraline (ZOLOFT) 100 mg tabletIndicatio ns:Anxiety with Depression Take 1 tablet (100 mg total) by mouth every morning Active FeroSuL 325 mg (65 mg iron) tabletIndicatio ns:Iron Deficiency Anemia Take 1 tablet (325 mg total) by mouth nightly Active levothyroxine (SYNTHROID) 125 mcg tabletIndicatio ns:hypothyroidi sm Take 1 tablet (125 mcg total) by mouth enrolled agent before breakfast Active fluticasone furoate (ARNUITY) 100 mcg/actuation inhalerIndicati ons:Maintenance Therapy for Asthma Inhale 1 puff daily Rinse mouth with water after use. Do not swallow. 30 each 022 Active famotidine (PEPCID) 20 mg tabletIndicatio ns:Heartburn Take 1 tablet (20 mg total) by mouth daily as needed for heartburn Active mv,radha,iron,mn/ folic acid/chol (DUFI-JXWY-JLXG S, PABA, ORAL)Indication s:supplement Take 1 tablet by mouth every morning Active acetaminophen (TylenoL) 325 mg capsuleIndicati ons:Pain Take 1-2 capsules (325-650 mg total) by mouth every 6 (six) hours as needed Active miscellaneous medical supply kit Home Oxygen at night for sleep apnea 3 liters NC PRN during the day 3 liters NC Active cetirizine (ZyrTEC) 10 mg tabletIndicatio ns:Seasonal Allergic Rhinitis Take 1 tablet (10 mg total) by mouth daily as needed Active azelastine-flut icasone 137-50 mcg/spray spray,non-aeros olIndications:S easonal Allergic Rhinitis Administer into affected nostril(s) daily as needed Active UNABLE TO FINDIndications :vitamin d supplement Take by mouth every morning Med Name: solray-d 2 sprays once a day in am Active UNABLE TO FINDIndications :supplement Take by mouth every morning Med Name: vitamin b-12 oral spray 4 sprays daily in am Active potassium chloride ER 10 mEq CR capsule Take by mouth daily Active ALPRAZolam (XANAX) 0.5 mg tablet Take 1 tablet (0.5 mg total) by mouth 3 (three) times a day Active cefdinir (OMNICEF) 300 mg capsule Take 1 capsule (300 mg total) by mouth every 12 (twelve) hours Active ketorolac (ACULAR) 0.5 % ophthalmic solution 1 DROP 4 TIMES PER DAY STARTING 2 DAYS PRIOR TO SURGERY, CONTINUING FOR 2 WEEKS AFTER SURGERY. Active ofloxacin (OCUFLOX) 0.3 % ophthalmic solution 1 DROP 3 TIMES PER DAY STARTING 2 DAYS PRIOR TO SURGERY, CONTINUING FOR 1 WEEK AFTER SURGERY. Active prednisoLONE acetate (PRED FORTE) 1 % ophthalmic suspension 1 DROP 3 TIMES PER DAY STARTING AFTER SURGERY, CONTINUING FOR 3 WEEKS Active predniSONE (DELTASONE) 20 mg tablet TAKE 2 TABLETS BY MOUTH ONCE DAILY FOR 7 DAYS Active denosumab (Prolia) 60 mg/mL syringeIndicati ons:Age-related osteoporosis with current pathological fracture with routine healing, subsequent encounter Inject 1 mL (60 mg total) under the skin once for 1 dose To be repeated every 6 months 1 mL 1 Active furosemide (LASIX) 20 mg tablet TAKE 2 TABLETS (40 MG TOTAL) BY MOUTH DAILY. 180 tablet 1 Active omeprazole (PriLOSEC) 40 mg capsuleIndicati ons:Gastroesoph ageal reflux disease, unspecified whether esophagitis present Take 1 capsule (40 mg total) by mouth daily 30 capsule 11 025 2025 Active azelastine (ASTELIN) 137 mcg (0.1 %) nasal spray SPRAY 2 SPRAYS INTO EACH NOSTRIL ONCE A DAY Active azithromycin (ZITHROMAX) 250 mg tablet TAKE 2 TABLETS BY MOUTH TODAY, THEN TAKE 1 TABLET DAILY FOR 4 DAYS DIRECTED Active budesonide (PULMICORT) 0.5 mg/2 mL nebulizer solution EMPTY 1 VIAL INTO IDS, ADD DISTILLED WATER AND SALT PACKET, IRRIGATE TWICE DAILY Active Repatha SureClick 140 mg/mL pen injector 140 MG SUBCUTANEOUSLY ONCE INJECT EVERY 2 WEEKS Active vit C/E/Zn/coppr/leandro tein/zeaxan ([facility]-2 ORAL) Take by mouth Ac tive budesonide (RHINOCORT AQUA) 32 mcg/actuation nasal spray Administer 1 spray into each nostril daily Active Opsynvi 10-40 mg tablet TAKE 1 TABLET BY MOUTH 1 TIME A DAY 30 tablet 11 025 Active spironolactone (ALDACTONE) 25 mg tablet Take 0.5 tablets (12.5 mg total) by mouth daily 45 tablet 3 025 Active busPIRone (BUSPAR) 5 mg tablet TAKE 1 TABLET BY MOUTH THREE TIMES A DAY 270 tablet 3 025 Active busPIRone (BUSPAR) 5 mg tablet TAKE 1 TABLET BY MOUTH THREE TIMES A DAY 270 tablet 3 024 2024 Discontinued Hospital, Clinic, or Other Facility Administered Medication Ordered Dose Route Frequency Start Date End Date Status perflutren protein-a (OPTISON) 3 mL in sodium chloride 0.9% 8 mL syringe 1 - 8 mL IV Once in imaging 08/30/2022 Active Active Problems Problem Noted Date Diagnosed Date Allergic rhinitis 02/22/2024 Allergic rhinitis due to animal hair and dander 02/22/2024 Allergic rhinitis due to pollen 02/22/2024 Chronic allergic conjunctivitis 02/22/2024 Dizziness and giddiness 02/22/2024 Pain in left shoulder 02/22/2024 Pelvic and perineal pain 02/22/2024 Sacrococcygeal disorders, not elsewhere classifi ed 02/22/2024 Stiffness of left shoulder, not elsewhere classi fied 02/22/2024 Unspecified fall, initial encounter 02/22/2024 Unspecified injury of right elbow, initial encou nter 02/22/2024 Pulmonary hypertension 01/16/2024 Congestive heart failure 10/25/2023 Osteoporosis 06/07/2023 Age-related osteoporosis with current pathologic al fracture 10/27/2022 Overview (06/26/2024): DEXA 05/2024: Lspine 0.749 (-2.7); LFN 0.440 (-3.7), L total hip 0.512 (-3.5), DEXA 10/27/22: L-spine BMD 0.647, T-score -3.6; L hip 0.519; -3.5; L fem neck 0.422, -3.8 Evenity 06/15/23-12/2023 Prolia 02/29/24 - current Assessment & Plan (03/26/2024 10:54 AM RECORD TABULATING CLERK): Jaw fracture in 09/2022 following tooth extraction. S/p surgical fixation with good healing. DEXA (09/2022) shows osteoporosis. Started Evenity in 06/15/23-12/2023. Started Prolia on 02/29/24 and repeating this every 6 months at [facility]. Using Vit D spray 2 times daily. Recent Vit D (43) per PCP labs. Drinks ovaltine twice daily. Will order repeat DEXA since finishing Evenity. Assessment & Plan (09/14/2023 4:47 PM CDT): Jaw fracture in 09/2022 following tooth extraction. S/p surgical fixation with good healing. DEXA shows osteoporosis. Started Evenity in 06/15/23 and getting this done at [facility]. Will likely do 1 year of Evenity then transition to prolia to maintain bone density. Denies hx CA. Not currently taking any vitamin D or calcium supplementation. Drinks ovaltine twice daily. Check Vitamin D and BMP today. Assessment & Plan (03/07/2023 11:16 AM RECORD TABULATING CLERK): Jaw fracture in 09/2022 following tooth extraction. S/p surgical fixation with good healing. DEXA shows osteoporosis. Discussed Evenity. Will get baseline creatinine, calcium, and Vitamin D levels before starting this. Will likely do 1 year of Evenity then transition to prolia to maintain bone density. Denies hx CA. Not currently taking any vitamin D or calcium supplementation. Drinks ovaltine twice daily. Chest pain 10/21/2021 Assessment & Plan (10/25/2021 12:42 PM CDT): Setting of parainfluenza. -Chest CT neg PE. Troponin peak 39 then decrease. ECHO nl LV/RV and no wall motion abnormality. -concern for exertional cp symptoms and strong FHx CAD -await stress echo to further risk stratify - negative for ischemia Assessment & Plan (10/24/2021 11:38 AM CDT): Setting of parainfluenza. -Chest CT neg PE. Troponin peak 39 then decrease. ECHO nl LV/RV and no wall motion abnormality. -concern for exertional cp symptoms and strong FHx CAD -await stress echo to further risk stratify Assessment & Plan (10/23/2021 10:51 AM CDT): Setting of parainfluenza. -Chest CT neg PE. Troponin peak 39 then decrease. ECHO nl LV/RV and no wall motion abnormality. -concern for exertional cp symptoms and strong FHx CAD will do stress echo to further risk stratify. Assessment & Plan (10/22/2021 1:13 PM CDT): Setting of fever and parainfluenza. - Mild troponinemia, down trending. ECHO nl LV/RV and no wall motion abnormality. Continue lasix 40 mg. - suspect related to parainfluenza and associated cough. Troponin level elevated 10/21/2021 Assessment & Plan (10/25/2021 12:43 PM CDT): Peak troponin 39 and then decrease. -TTE with nl LV/RV function and no wall motion abnormalities -see chest pain plans for stress echo Assessment & Plan (10/24/2021 11:40 AM CDT): Peak troponin 39 and then decrease. -TTE with nl LV/RV function and no wall motion abnormalities -see chest pain plans for stress echo Assessment & Plan (10/23/2021 10:53 AM CDT): Peak troponin 39 and then decrease. -TTE with nl LV/RV function and no wall motion abnormalities -see chest pain plans for stress echo Assessment & Plan (10/22/2021 1:11 PM CDT): Mildly elevated. Suspect demand related to acute infection. -TTE with nl LV/RV function and no wall motion abnormalities. Elevated d-dimer 10/21/2021 Assessment & Plan (10/25/2021 12:43 PM CDT): Ddimer milfly elevated at [address] PE negative for PE - Ordered duplex for reported OSBALDO. Assessment & Plan (10/21/2021 11:35 PM CDT): Ddimer milfly elevated at [address] PE negative for PE - Ordered duplex for reported OSBALDO. Parainfluenza infection 10/21/2021 Assessment & Plan (10/25/2021 12:43 PM CDT): P/w fever, nasal congestion, vomiting ad body aches. Slowly improving. had mild symptoms prior. - Continue droplet precautions - Continue supportive care Assessment & Plan (10/24/2021 11:38 AM CDT): P/w fever, nasal congestion, vomiting ad body aches. Slowly improving. had mild symptoms prior. - Continue droplet precautions - Continue supportive care Assessment & Plan (10/23/2021 10:51 AM CDT): P/w fever, nasal congestion, vomiting ad body aches for 1 day duration. had mild symptoms prior. - Continue droplet precautions - Continue supportive care Assessment & Plan (10/21/2021 11:34 PM CDT): P/w fever, nasal congestion, vomiting ad body aches for 1 day duration. had mild symptoms yesterday. - Continue droplet precautions - Continue supportive care Sicca 09/09/2021 Assessment & Plan (03/07/2023 1:47 PM RECORD TABULATING CLERK): Continue symptomatic treatment with lubricating eye drops and frequent sips of water. No previous serological evidence for Sj gren's however sicca may accompany scleroderma. Discussed biotene products, xylitol gum, xylimelts, gel drops at night time, and having a humidifier in her bedroom while sleeping. Supplemental oxygen at night may be exacerbating dryness as well. Recommend saline nasal spray for dry nose. Assessment & Plan (08/30/2022 11:33 AM CDT): Continue symptomatic treatment with lubricating eye drops and frequent sips of water. No previous serological evidence for Sj gren's however sicca may accompany scleroderma. Assessment & Plan (03/22/2022 11:58 AM RECORD TABULATING CLERK): Continue symptomatic treatment with lubricating eye drops and frequent sips of water. No previous serological evidence for Sj gren's however sicca may accompany scleroderma. Assessment & Plan (09/09/2021 4:06 PM CDT): Recent vision changes likely due to dry eye and changes in voice with environmental irritation like dust. Likely due to dry eyes and mouth as symptoms improve with drinking water. Continue symptomatic treatment with lubricating eye drops and frequent sips of water. No previous serological evidence for Sj gren's however sicca may accompany scleroderma. Raynaud's disease without gangrene 06/03/2021 Assessment & Plan (03/26/2024 10:54 AM RECORD TABULATING CLERK): Improvement since starting medications for clinical trial of PAH and now continuing these medications post-trial. Denies any digital ulcerations. Continue to keep core warm, dress in layers, and avoid environmental triggers. Low BP so would avoid systemic CCB at this time due to risk for hypotension. Should she develop ulcerations, could consider topical nifedipine vs nitro-bid in the future. Assessment & Plan (09/14/2023 4:50 PM CDT): Improvement since starting medications for clinical trial and now continuing these medications post-trial. Denies any digital ulcerations. Continue to keep core warm, dress in layers, and avoid environmental triggers. Low BP so would avoid systemic CCB at this time due to risk for hypotension. Should she develop ulcerations, could consider topical nifedipine vs nitro-bid in the future. Assessment & Plan (03/07/2023 1:39 PM RECORD TABULATING CLERK): Improvement since starting medications for clinical trial. Denies any digital ulcerations. Continue to keep core warm, dress in layers, and avoid environmental triggers. Low BP so would avoid systemic CCB at this time due to risk for hypotension. Should she develop ulcerations, could consider topical nifedipine vs nitro-bid in the future. Assessment & Plan (08/30/2022 11:32 AM CDT): Improvement since starting medications for clinical trial. Denies any digital ulcerations. Continue to keep core warm, dress in layers, and avoid environmental triggers. Purple discoloration in the feet but has brisk capillary refill and 2+ pedal pulses bilaterally. Low BP so would avoid systemic CCB at this time due to risk for hypotension. Should she develop ulcerations, could consider topical CCB vs nitro-bid in the future. Assessment & Plan (03/22/2022 11:57 AM RECORD TABULATING CLERK): Improvement since starting medications for clinical trial. Denies any digital ulcerations. Continue to keep core warm, dress in layers, and avoid environmental triggers. Assessment & Plan (09/09/2021 3:53 PM CDT): Notes improvement since starting medications for clinical trial . Denies any digital ulcerations. 2 small hyperkeratotic lesions on radial L 2nd digit but no ulceration. Continue to keep core warm, dress in layers, and avoid environmental triggers. Assessment & Plan (06/03/2021 10:26 AM RECORD TABULATING CLERK): Notes improvement since starting medications for clinical trial . Denies any digital ulcerations. Continue to keep core warm, dress in layers, and avoid environmental triggers. Dysphagia 06/03/2021 Assessment & Plan (03/26/2024 10:58 AM RECORD TABULATING CLERK): EGD w/ dilation on 08/29/22. Repeating this on 04/24/24 through GI. Eating smaller portions and changed to a low acidity diet. Had study showing delayed gastric emptying. Barium swallow study (07/2022) showed esophageal dysmotility, mild stricture of distal esophagus, and small hiatal hernia. Did PT for TMJ which has helped increase oral aperture. Recommend continuing home exercises for TMJ pain. Established with GI Dr. Oliva in 11/2022. Stopped omeprazole, started nexium and buspar 5mg TID which she feels has been helping. Assessment & Plan (03/07/2023 1:44 PM RECORD TABULATING CLERK): Saw ENT for EGD w/ dilation on 08/29/22. C/o acid reflux but has been eating smaller portions and changing to a low acidity diet. Had study showing delayed gastric emptying. Barium swallow study (07/2022) showed esophageal dysmotility, mild stricture of distal esophagus, and small hiatal hernia. Doing PT for TMJ which has helped increase oral aperture. Recommend continuing home exercises for TMJ pain. Established with GI Dr. Oliva in 11/2022. Stopped omeprazole, started nexium and buspar 5mg TID which she feels has been helping. Assessment & Plan (08/30/2022 11:33 AM CDT): Saw ENT for EGD w/ dilation on 08/29/22. C/o acid reflux but has been eating smaller portions and changing to a low acidity diet. Started omeprazole in 09/2021 with some benefit. Had study showing delayed gastric emptying. Barium swallow study (07/2022) showed esophageal dysmotility, mild stricture of distal esophagus, and small hiatal hernia. Doing PT for TMJ which has helped increase oral aperture. Recommend continuing home exercises for TMJ pain. Assessment & Plan (03/22/2022 11:58 AM RECORD TABULATING CLERK): Saw GI for EGD w/ dilatation in 12/2020. C/o acid reflux but has been eating smaller portions and changing to a low acidity diet. Started omeprazole in 09/2021 with some benefit. Had study showing delayed gastric emptying. Doing PT for TMJ which has helped increase oral aperture. Recommend continuing home exercises for TMJ pain. Assessment & Plan (09/09/2021 3:57 PM CDT): Saw GI for EGD w/ dilatation in 12/2020. Continues to c/o acid reflux but has been eating smaller portions and changing to a low acidity diet. Had study showing delayed gastric emptying. Doing PT for TMJ which has helped increase oral aperture. Continue omeprazole and pepcid. Continue to follow with GI w/ next visit on 10/03/21. Assessment & Plan (06/03/2021 10:30 AM RECORD TABULATING CLERK): Saw GI for EGD w/ dilatation in 12/2020. Continues to c/o acid reflux but has been eating smaller portions and changing to a low acidity diet. Continue to follow with GI. Research study patient 03/15/2021 Overview (03/15/2021): Added automatically from request for surgery [id number] Polyarthralgia 01/05/2021 Assessment & Plan (03/26/2024 10:56 AM RECORD TABULATING CLERK): Low positive RF IgM (12.0) and patient c/o mild joint pain and stiffness, however US findings at the time revealed only mild inflammatory findings. Should symptoms worsen, could consider tx for RA. Will continue to monitor for any progression of symptoms. Assessment & Plan (09/14/2023 4:47 PM CDT): Low positive RF IgM (12.0) and patient c/o mild joint pain and stiffness, however US findings at this time reveal only mild inflammatory findings. Should symptoms worsen, could consider tx for RA. Will continue to monitor for any progression of symptoms. Assessment & Plan (03/07/2023 1:43 PM RECORD TABULATING CLERK): Low positive RF IgM (12.0) and patient c/o mild joint pain and stiffness, however US findings at this time reveal only mild inflammatory findings. Should symptoms worsen, could consider tx for RA. Will continue to monitor for any progression of symptoms. Assessment & Plan (08/30/2022 11:29 AM CDT): Low positive RF IgM (12.0) and patient c/o mild joint pain and stiffness, however US findings at this time reveal only mild inflammatory findings. Should symptoms worsen, could consider tx for RA. Will continue to monitor for any progression of symptoms. Assessment & Plan (03/22/2022 11:55 AM RECORD TABULATING CLERK): Low positive RF IgM (12.0) and patient c/o mild joint pain and stiffness, however US findings at this time reveal only mild inflammatory findings. Should symptoms worsen, could consider tx for RA. Will continue to monitor for any progression of symptoms. Assessment & Plan (09/09/2021 3:47 PM CDT): Low positive RF IgM (12.0) and patient c/o mild joint pain and stiffness, however US findings at this time reveals only mild inflammatory findings. Should symptoms worsen, could consider tx for RA. Will continue to monitor for any progression of symptoms. Assessment & Plan (06/03/2021 9:57 AM RECORD TABULATING CLERK): Low positive RF IgM (12.0) and patient c/o mild joint pain and stiffness, however US findings at this time reveal mild inflammatory findings. Should symptoms worsen, could consider tx for RA. Will continue to monitor for any progression of symptoms. Assessment & Plan (01/05/2021 12:18 PM CDT): Low positive RF IgM (12.0) and patient c/o mild joint pain and stiffness, however US findings at this time reveal mild inflammatory findings. Should symptoms worsen, could consider tx for RA. Will continue to monitor for any progression of symptoms. Pulmonary artery hypertension 01/05/2021 Overview (09/14/2023): PFT 07/31/23: FVC 78%, FEV1 76%, FEV1:FVC 96% PFT 08/30/22: FVC 72%, FEV1 75%, FEV1:FVC 103% PFT 10/28/20: FVC 85%, FEV1 74%, FEV1:FVC 68%, DLCO corrected 34% PFT 03/15/21: FVC 87%, FEV1 83%, FEV1:FVC 75%, DLCO 44% Assessment & Plan (03/26/2024 10:56 AM RECORD TABULATING CLERK): Seeing Alcira Weiss. Tx w/ Opsynvi (macitentan/tadalafil). Was in clinical trial 04/19/24-07/2023. R heart cath on 08/05/21 showed improvement of PAH when compared to prior R heart cath in 03/2021. RHC 10/2023 remains stable. Echo continues to show improvement of PASP. Assessment & Plan (09/14/2023 4:49 PM CDT): Seeing Alcira Weiss. Was in clinical trial 04/19/24-07/2023. R heart cath on 08/05/21 showed improvement of PAH when compared to prior R heart cath in 03/2021. Repeat R heart cath in 10/2023. Echo continues to show improvement of PASP. Assessment & Plan (03/07/2023 1:43 PM RECORD TABULATING CLERK): Seeing [facility] jas Weiss for clinical trial. She is randomized to either fixed-dose combination tadalafil plus macitentan versus either tadalafil or macitentan monotherapy. Started trial on 04/19/21 and will last for 30 months. R heart cath on 08/05/21 showed improvement of PAH when compared to prior R heart cath in 03/2021. Echo continues to show improvement of PASP. Assessment & Plan (08/30/2022 11:30 AM CDT): Seeing [facility] jas Weiss for clinical trial. She is randomized to either fixed-dose combination tadalafil plus macitentan versus either tadalafil or macitentan monotherapy. Started trial on 04/19/21 and will last for 30 months. R heart cath on 08/05/21 showed improvement of PAH when compared to prior R heart cath in 03/2021. Repeating PFT and TTE today per pul study. Assessment & Plan (03/22/2022 11:56 AM RECORD TABULATING CLERK): Seeing [facility] jas Weiss for clinical trial. She will be randomized to either fixed-dose combination tadalafil plus macitentan versus either tadalafil or macitentan monotherapy. Started trial on 04/19/21 and will last for 30 months. R heart cath on 08/05/21 shows improvement of PAH when compared to prior R heart cath in 03/2021. Assessment & Plan (10/25/2021 12:43 PM CDT): Follows with [facility] pulmonology and in study Pul HTN team notified of admission and may continue study drug as at home. Assessment & Plan (10/24/2021 11:39 AM CDT): Follows with [facility] pulmonology and in study Pulm HTN team notified of admission and may continue study drug as at home. Assessment & Plan (10/23/2021 10:52 AM CDT): Follows with [facility] pulmonology and in study Pulm HTN team notified of admission and may continue study drug as at home. Assessment & Plan (10/22/2021 1:06 PM CDT): Follows with [facility] pulmonology and in study I spoke with Pulm HTN team and may continue study drug as at home. Assessment & Plan (09/09/2021 4:04 PM CDT): Seeing [facility] pul Dr. Weiss for clinical trial. She will be randomized to either fixed-dose combination tadalafil plus macitentan versus either tadalafil or macitentan monotherapy. Started trial on 04/19/21 and will last for 30 months. R heart cath on 08/05/21 shows improvement of PAH when compared to prior R heart cath in 03/2021. Assessment & Plan (06/03/2021 10:24 AM RECORD TABULATING CLERK): Seeing [facility] pulremy Weiss for clinical trial. She will be randomized to either fixed-dose combination tadalafil plus macitentan versus either tadalafil or macitentan monotherapy. Started trial on 04/19/21 and will last for 30 months. Assessment & Plan (01/05/2021 12:24 PM CDT): Agreed to start Tracleer per pulm. See above. 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 AVISE (12/22/2020): +BILL >1:5120 centromere pattern. Equivocal anti-dsDNA. 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 Differential would include scleroderma as well as erosive OA, the appearence a the DIPs favoring the latter. 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 US R hand/wrist (12/31/2020): Mild 3rd mcp, moderate 4th mcp, mild/mod 2nd pip synovial thickening on examination which will have to be correlated clinically. No prior study. Assessment & Plan (03/26/2024 10:52 AM RECORD TABULATING CLERK): +BILL >1:5120 centromere pattern, anti-CENP (>240), and RF IgM (12.0). 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 Hx of PAH, Raynaud's, GERD, and dysphagia. PFTs, Echo, and chest CT are all consistent with PAH, no ILD. Sclerodactyly and telangiectasias noted on exam. Had EGD and dilatation w/ ENT 08/29/22 and repeating with GI on 04/24/24. Repeat R heart cath 10/2023 remains stable. 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 Treatment remains symptomatic at this time. Continue to follow with [facility]. Follow up in 1 year. Sooner if needed. Assessment & Plan (09/14/2023 4:45 PM CDT): +BILL >1:5120 centromere pattern, anti-CENP (>240), and RF IgM (12.0). 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 Hx of PAH, Raynaud's, GERD, and dysphagia. PFTs, Echo, and chest CT are all consistent with PAH, no ILD. Sclerodactyly and telangiectasias noted on exam. Had EGD and dilatation w/ ENT 08/29/22 and wanting to repeat this soon but needs to have R heart cath prior to procedure. Established with GI Dr. 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 Treatment remains symptomatic at this time. [facility] Follow up in 6 months. Sooner if needed. Seen with Dr. Gage. Assessment & Plan (03/07/2023 12:54 PM RECORD TABULATING CLERK): +BILL >1:5120 centromere pattern, anti-CENP (>240), and RF IgM (12.0). 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 Hx of PAH, Raynaud's, GERD, and dysphagia. PFTs, Echo, and chest CT are all consistent with PAH, no ILD. Sclerodactyly and telangiectasias noted on previous exams. Had EGD and dilatation w/ ENT 08/29/22. Established with GI Dr. 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 Treatment remains symptomatic at this time. Continue to follow with [facility] for clinical trials. States she is getting labs routinely for clinical trials per [facility]. Follow up in 6 months. Sooner if needed. Seen with Dr. Montgomery. Assessment & Plan (08/30/2022 11:29 AM CDT): +BILL >1:5120 centromere pattern, anti-CENP (>240), and RF IgM (12.0). 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 Hx of PAH, Raynaud's, GERD, and dysphagia. PFTs, Echo, and chest CT are all consistent with PAH, no ILD. Sclerodactyly and telangiectasias noted on previous exams. Had EGD and dilatation w/ ENT 08/29/22. She is establishing with TAO Oliva in 11/2022. 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 Treatment remains symptomatic at this time. Continue to follow with [facility] pul for clinical trials. States she is getting labs routinely for clinical trials per [facility]. Follow up in 6 months. Sooner if needed. Seen with Dr. Montgomery. Assessment & Plan (03/22/2022 11:53 AM RECORD TABULATING CLERK): +BILL >1:5120 centromere pattern, anti-CENP (>240), and RF IgM (12.0). 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 Hx of PAH, Raynaud's, GERD, and dysphagia. PFTs, Echo, and chest CT are all consistent with PAH. Sclerodactyly and telangiectasias noted on previous exams. Had EGD and dilatation w/ GI in 12/2020. 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 Treatment remains symptomatic at this time. Continue to follow with [facility] for clinical trials. States she is getting labs routinely for clinical trials per [facility]. Follow up in 6 months. Sooner if needed. Seen with Dr. Montgomery. Assessment & Plan (10/25/2021 12:43 PM CDT): Continue PPI Assessment & Plan (10/21/2021 11:29 PM CDT): Continue PPI Assessment & Plan (09/09/2021 3:55 PM CDT): +BILL >1:5120 centromere pattern, anti-CENP (>240), and RF IgM (12.0). 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 Hx of PAH, Raynaud's, GERD, and dysphagia. PFTs, Echo, and chest CT are all consistent with PAH. Sclerodactyly and telangiectasias noted on previous exams. Had EGD and dilatation w/ GI in 12/2020. 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 Treatment remains symptomatic at this time. Continue to follow with [facility] for clinical trials. States she is getting labs routinely for clinical trials per [facility]. Follow up in 6 months. Sooner if needed. Seen with Dr. Montgomery. Assessment & Plan (06/03/2021 10:32 AM RECORD TABULATING CLERK): +BILL >1:5120 centromere pattern, anti-CENP (>240), and RF IgM (12.0). 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 Hx of PAH, Raynaud's, GERD, and dysphagia. PFTs, Echo, and chest CT are all consistent with PAH. Sclerodactyly and telangiectasias noted on previous exams. Had EGD and dilatation w/ GI in 12/2020. 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 Treatment remains symptomatic at this time. Continue to follow with [facility] for clinical trials. States she is getting labs routinely for clinical trials per [facility]. Follow up in 3-4 months. Sooner if needed. Assessment & Plan (01/05/2021 12:27 PM CDT): US R hand/wrist (12/31/2020): Mild 3rd mcp, moderate 4th mcp, mild/mod 2nd pip synovial thickening on examination which will have to be correlated clinically. No prior study. Serologies revealed a positive BILL >1:5120 centromere pattern, anti-CENP (>240), and RF IgM (12.0). 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 Hx of PAH, Raynaud's, GERD, and dysphagia. Recent PFTs, Echo, and chest CT are all consistent with PAH. Sclerodactyly and telangiectasias noted on exam. Seeing GI on 01/24 for EGD and dilatation. 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 Dr. Montgomery had previously spoken with patient's senior systems administrator Dr. Katz and it was agreed to start Tracleer, an endothelin receptor antagonist, for patient's PAH. However, Dr. Katz is going to refer patient to a senior systems administrator who specializes with this treatment process. This treatment may also provide benefit of her Raynaud's. Follow up in 1 month. Sooner if needed. Seen with Dr. Montgomery. Assessment & Plan (12/22/2020 1:23 PM CDT): 65-year-old female with PMHx of scleroderma (diagnosed about 5 years ago and untreated), PAH, Raynaud's, GERD, depression/anxiety, sicca symptoms, CLARKE, HLD, and migraines presenting to establish with rheumatology. C/o dysphagia and DEMPSEY. Sclerodactyly and telangiectasias noted on exam today. Recent PFTs, Echo, and chest CT are all consistent with PAH. Symptoms and exam appear consistent with history of scleroderma (possibly CREST). Will order appropriate serologies, radiographs, and a right hand/wrist US to further evaluate for any other underlying autoimmune diseases. Dr. Montgomery will discuss potential treatment plan with patient's senior systems administrator Dr. Katz. Would avoid systemic steroids due to risk of scleroderma renal crisis. Follow up in 2 weeks. Sooner if needed. Seen with Dr. Montgomery. Herpes zoster without complication 05/21/2018 Abnormal stress test 08/20/2017 Assessment & Plan (08/20/2017 10:31 AM CDT): Abnormal stress echocardiogram. Benefits and risk of cardiac catheterization discussed with the patient and she agrees to proceed. Will attempt right radial approach if feasible. Shortness of breath 08/20/2017 Assessment & Plan (03/07/2023 1:45 PM RECORD TABULATING CLERK): Hx PAH and in clinical trial per [facility] pulmonology. Currently on supplemental oxygen at night but has been using 3L during the day while at rest. Chest CT (09/2021 and 09/2022) did not show any ILD. Assessment & Plan (08/30/2022 11:35 AM CDT): Hx PAH and in clinical trial per [facility] pulmonology. Currently on supplemental oxygen at night but has been using 3L during the day while at rest. Previous Chest CT (09/2021) did not show any ILD. Repeating PFT and Echo today per pulm study. Will get updated chest CT to rule out any ILD involvement with hx of systemic sclerosis. Assessment & Plan (08/20/2017 10:31 AM CDT): Will also follow up on the results of the echocardiogram that is being done today at [facility]. Other chest pain 08/20/2017 Assessment & Plan (08/20/2017 10:32 AM CDT): Arrange for cardiac catheterization given abnormal stress test Other hyperlipidemia 08/20/2017 Assessment & Plan (10/25/2021 12:43 PM CDT): Continue home ezetimibe, added statin. Assessment & Plan (10/24/2021 11:39 AM CDT): Continue home ezetimibe, added statin. Assessment & Plan (10/21/2021 11:35 PM CDT): Continue home ezetimibe, add statin. Assessment & Plan (08/20/2017 10:32 AM CDT): Continue Crestor Family history of ischemic heart disease 018 Resolved Problems Problem Noted Date Diagnosed Date Resolved Date Chest pain, unspecified type 10/21/2021 10/21/2021 Encounters Date Type Department Care Team Description 12/02/2024 Orders Only [facility] Medicine Pulmonary [address] [place] [address] [place] [address] Ritu Lott RN 10/30/2024 2:30 PM CDT Office Visit [facility] Medicine Pulmonary [facility] [place] [address] [place] [address] Manuel Weiss MD Pulmonary artery hypertension (HCC) (Primary Dx); Chronic right-sided CHF (congestive heart failure) (HCC); Limited systemic sclerosis (HCC); Low iron 10/30/2024 1:40 PM CDT - 10/30/2024 11:59 PM CDT Hospital Encounter [facility] Medicine Pulmonary [facility] [place] [address] Pulmonary artery hypertension (HCC) Discharge Disposition: Discharge to home or self care 10/27/2024 Orders Only [facility] Medicine Gastroenterology [address] [place] [address] [place] [address] Stacey Oliva MD Gastroesophageal reflux disease, unspecified whether esophagitis present (Primary Dx) from Last 3 Months Immunizations Immunization Administration Dates Next Due Influenza, Quadrivalent, Hig h Dose, Preservative Free, Intrr 04/08/2021 Pfizer SARS-CoV-2 Monovalent Vaccination (12+ Yrs) PURPLE 03/29/2021 Surgical History Surgery Date Site/Laterality Comments APPENDECTOMY 04/30/1966 - 04/29/1967 CHOLECYSTECTOMY unknown date per pt DILATION AND CURETTAGE OF UTERUS 04/30/1985 - 04/29/1986 ESOPHAGEAL DILATION 04/30/2017 - 04/29/201807/2022 SINUS SURGERY 04/30/1989 - 04/29/1990 CARDIAC CATHETERIZATION 04/30/2016 - 04/29/2017 COLONOSCOPY 2019 CARDIAC CATHETERIZATION 08/05/2021 for Pulmonary HTN lung study MANDIBLE FRACTURE SURGERY 09/28/2022 - 10/27/2022 Right Medical History Medical History Date Comments Thyroid disease Hyperlipidemia Acid indigestion Anxiety and depression Emphysema of lung Arthritis Pulmonary hypertension (HCC) Systemic sclerosis (HCC) Raynaud's phenomenon GERD (gastroesophageal reflux disease) Dysphagia Scoliosis Chronic kidney disease Graves disease CLARKE (obstructive sleep apnea) ce ntral sleep apnea unknown at time of last EGD, SpO2 low, prolonged stay by a few hours but still able to go home same day HL (hearing loss) 2019 Sinusitis drainage Dental disease ? Headache ? TMJ dysfunction ? Anemia Osteoporosis 06/07/2023 Family History Medical History Relation Name Comments Hearing loss Brother 1 Blaze Antunezerkfejone Multiple myeloma Brother 1 Blaze Oberkfell Tuberculosis Brother 2 Michael Oviedo Oberkfejone Thyroid disease Daughter Diabetes Father Harlan Oberkfell Hearing loss Father Harlan Oberkfell Heart attack Father Harlan Oberkfell Heart failure Father Harlan Oberkfell Hyperlipidemia Father Harlan Oberkfell Hypertension Father Harlan Oberkfell Snoring Father Harlan Oberkfell Stroke Father Harlan Oberkfell Cancer Maternal Grandfather Driss Shipley Heart failure Maternal Grandmother Ioana Shipley Cancer Mother Crissy Oberkfell Heart failure Mother Crissy Oberkfell Lymphoma Mother Crissy Oberkfell Heart failure Mother's Brother 1 Michael Shipley Rheum arthritis Mother's Brother 2 Shaka Quinten Hearing loss Paternal Grandmother Rae Tulioerkfejone Hearing loss Sister Li Singh Anesthesia problems Neg Hx Relation Name Status Comments Brother 1 Blaze Castro (Age 72) Brother 2 Michael Oviedo Oberkfell (Age 16 m [facility]) Daughter Father Harlan Oberkfejone (Age 85) Maternal Grandfather Driss Shipley Maternal Grandmother Ioana Shipley Mother Crissy Castro (Age 70) Mother's Brother 1 Michael Shipley Mother's Brother 2 Shaka Shipley Paternal Grandmother Rae Castro Sister Li Singh Social History Tobacco Use Types Packs/Day Years Used Date Smoking Tobacco: Never Smokeless Tobacco: Never Tobacco Cessation:Counseling Given: Not Answered Alcohol Use Standard Drinks/Week Comments Yes 1 [...] Orientation Straight 10/25/2021 9: 40 AM CDT Obstetrics History Last Filed Vital Signs Vital Sign Reading Time Taken Comments Blood Pressure 101/61 10/30/2024 2:24 PM CDT Pulse 82 10/30/2024 2:24 PM CDT Temperature 37 C (98.6 F) 10/30/2024 2:24 PM CDT Respiratory Rate 18 10/30/2024 2:24 PM CDT Oxygen Saturation 94% 10/30/2024 2:35 PM CDT Inhaled Oxygen Concentration - - Weight 46.3 kg (102 lb) 10/30/2024 2:24 PM CDT Height 157.5 cm (5' 2) 10/30/2024 2:24 PM CDT Body Mass Index 18.66 10/30/2024 2:24 PM CDT Plan of Treatment Health Maintenance Due Date Last Done Comments Breast Cancer Screening-Mammogram 1955 Colon Cancer Screening-Colonoscopy 1955 Depression Screening 1955 DTaP/Tdap/Td Vaccine (1 - Tdap) 1966 Hepatitis B Screening 11/07/1971 Well Visit 65+ 2018 Zoster Vaccine (2 of 2) 04/03/2020 02/07/2020 Pneumococcal vaccine 65+ (2 of 2 - PCV) 02/06/2021 02/07/2020 Covid-19 Vaccine (4 - 2024-2 6 season) 2024 03/29/2021, 07/18/2020, 06/27/2020 Influenza Vaccine (#1) 2024 04/08/2021, 2019 Fall Risk Assessment 01/23/2025 01/24/2024 Osteoporosis Screening-Bone Density Scan 06/25/2026 06/25/2024, 10/26/2022 Hepatitis C Screening Completed 12/22/2020 Colon Cancer Screening-DNA Stool Discontinued 07/14/19 Colon Cancer Screening-FIT Discontinued 07/14/2023 Procedures Procedure Name Priority Date/Time Associated Diagnosis Comments PRO B-TYPE NATRIURETIC PEPTIDE Routine 11/01/2024 11:02 AM CDT Pulmonary artery hypertension (HCC) Chronic right-sided CHF (congestive heart failure) (HCC) Limited systemic sclerosis (HCC) FERRITIN Routine 11/01/2024 11:02 AM CDT Pulmonary artery hypertension (HCC) Chronic right-sided CHF (congestive heart failure) (HCC) Limited systemic sclerosis (HCC) Low iron COMPREHENSIVE METABOLIC PANEL Routine 11/01/2024 11:02 AM CDT Pulmonary artery hypertension (HCC) Chronic right-sided CHF (congestive heart failure) (HCC) Limited systemic sclerosis (HCC) CBC WITH AUTO DIFFERENTIAL Routine 11/01/2024 11:02 AM CDT Pulmonary artery hypertension (HCC) Chronic right-sided CHF (congestive heart failure) (HCC) Limited systemic sclerosis (HCC) PULMONARY FUNCTION TEST (PFT) Routine 10/30/2024 1:59 PM CDT Pulmonary artery hypertension (HCC) DEXA AXIAL SKELETON BONE DENSITY 1 OR MORE SITES Schedule Routine, Read Routine (OP Routine) 06/25/2024 2:23 PM RECORD TABULATING CLERK Age-related osteoporosis with current pathological fracture with routine healing, subsequent encounter Age-related osteoporosis with current pathological fracture, right pelvis, initial encounter for fracture STOOL DNA COLOGUARD Routine 07/14/2023 12:30 PM CDT Screening for colon cancer HEPATITIS PANEL, ACUTE Routine 12/22/2020 12:06 PM CDT Fatigue, unspecified type from Last 3 Months or Most Recently Relevant to Health Maintenance Results * (ABNORMAL) Pro B-type natriuretic peptide (11/01/2024 11:02 AM CDT) NT PROBNP 472(H) <125 pg/mL [facility] Blood 11/01/2024 11:0 2 AM CDT 11/01/2024 11:02 AM CDT Manuel Weiss MD LAB BLOOD ORDERABLES Ijeoma l Result [facility] [address] [place] [address] * (ABNORMAL) CBC with auto differential (11/01/2024 11:02 AM CDT) WBC 4.6 3.8 - 10.8 Thousand/u L [facility] RBC, POC 4.11 3.80 - 5.10 Million/uL [facility] Hgb 12.7 11.7 - 15.5 g/dL [facility] Hct 40.0 35.0 - 45.0 % [facility] MCV 97.3 80.0 - 100.0 fL [facility] MCH 30.9 27.0 - 33.0 pg [facility] MCHC 31.8(L) 32.0 - 36.0 g/dL [facility] Comment: For adults, a slight decrease in the calculated MCHC value (in the range of 30 to 32 g/dL) is most likely not clinically significant; however, it should be interpreted with caution in correlation with other red cell parameters and the patient's clinical condition. Rdw 12.6 11.0 - 15.0 % [facility] Platelets 164 140 - 400 Thousand/u L [facility] MPV 10.6 7.5 - 12.5 fL [facility] Neutrophils, abs 2,277 1,500 - 7,800 cells/uL [facility] Lymphocytes, abs 1,513 850 - 3,900 cells/uL [facility] Monocyte abs 529 200 - 950 cells/uL [facility] Eosinophils, abs 179 15 - 500 cells/uL [facility] Basophils, abs 101 0 - 200 cells/uL [facility] Neutrophils 49.5 % [facility] Lymphocyte pct 32.9 % [facility] Monocytes 11.5 % [facility] Eosinophils 3.9 % [facility] Basophils 2.2 % [facility] Blood 11/01/2024 11:0 2 AM CDT 11/01/2024 11:02 AM CDT Manuel Weiss MD LAB BLOOD ORDERABLES Ijeoma cordero Result Performing Organization Address City/[facility]/ZIP Co de Phone Number [facility] [address] [place] [address] * Ferritin (11/01/2024 11:02 AM CDT) Ferritin 135 16 - 288 ng/mL [facility] Blood 11/01/2024 11:0 2 AM CDT 11/01/2024 11:02 AM CDT Manuel Weiss MD LAB BLOOD ORDERABLES Ijeoma l Result Performing Organization Address City/[facility]/ZIP Co de Phone Number [facility] [address] [place] [address] * (ABNORMAL) Comprehensive metabolic panel (11/01/2024 11:02 AM CDT) Pathologist [facility] Glucose 89 65 - 99 mg/dL [facility] Comment: Fasting reference interval BUN 13 7 - 25 mg/dL [facility] Creatinine 0.94 0.60 - 1.00 mg/dL [facility] eGFR 65 > OR = 60 mL/min/1.7 3m2 [facility] BUN/creat ratio SEE NOTE: 6 - 22 (calc) [facility] Comment: Not Reported: BUN and Creatinine are within reference range. Sodium 139 135 - 146 mmol/L [facility] Potassium, pl 3.3(L) 3.5 - 5.3 mmol/L [facility] Chloride 105 98 - 110 mmol/L [facility] CO2 25 20 - 32 mmol/L [facility] Calcium 8.8 8.6 - 10.4 mg/dL [facility] Protein, sr 6.7 6.1 - 8.1 g/dL [facility] Albumin 4.2 3.6 - 5.1 g/dL [facility] GLOBULIN 2.5 1.9 - 3.7 g/dL (calc) [facility] Alb/glob ratio 1.7 1.0 - 2.5 (calc) [facility] Bilirubin, total 0.5 0.2 - 1.2 mg/dL [facility] Alk phos 108 37 - 153 U/L [facility] AST 30 10 - 35 U/L [facility] ALT (SGPT) 23 6 - 29 U/L [facility] Blood 11/01/2024 11:0 2 AM CDT 11/01/2024 11:02 AM CDT us Manuel Weiss MD LAB BLOOD ORDERABLES Ijeoma l Result [facility] [address] [place] [address] * Pulmonary Function Test -[facility] Adult PFT Lab- [facility]; Walk for Distance (10/30/2024 1:59 PM CDT) Anatomical Region Laterality Modality PFT Narrative 11/03/2024 1:06 PM CDT Table formatting from the original result was not included. [facility] Division of Pulmonary & Critical Care Medicine [address] [place] [address]; [place] [address]; [place] [address]; [phone] Pulmonary Function Laboratory Pulmonary Stress Test Simple/Oxygen Assessment Patient: Soo Coello Date: 10/30/2024 : 1955 Ht: 62 IN Wt: 102 LBS Time (min) Distance (ft)/ Rolon O2 L/M SpO2 HR Minna* BP FEV1 % Pred Rest: RA 94 77 0 107/64 1.48 75 % Walk/Bike: 1 RA 89 99 0 2 RA 87 114 3/4 3 RA 87 118 5 4 RA 87 121 6 5 RA 87 121 7 6 min 0 sec RA 87 123 7 Recovery: 1 RA 86 108 7 113/65 1.65 83% 3 RA 90 89 3 *Minna rate of perceived exertion (1-10 dyspnea scale) Marcial, CHEST 2003; [id number] Walk Test Summary: Six Minute Walk Distance: 1200 ft Six-minute Walk Work [distance (m) x body wt (kg)]: 58001 kg.m (normal >60,000kg.m) Oxygen required to maintain SpO2 greater than 90% during six minutes of walkin L/M Comments: WFD/ATS Interpretation: Breathing room air, SpO2 is adequate at rest and during exercise sufficient to increase pulse, SpO2 falls to hypoxemic levels. On this basis, SpO2 is adequate at rest breathing room air but not while walking breathing room air. This level of exercise is associated with no significant change of FEV1. By signing this report, the attending pulmonary physician certifies that he/she has personally reviewed and interpreted the graphic and numerical data associated with this pulmonary function study and has reviewed and /or edited a preliminary draft report and agrees with the written final report. us Manuel Weiss MD PFT ORDERABLES Final Res ult * Dexa Axial Skeleton Bone Density 1 or 2 Site (06/25/2024 2:23 PM RECORD TABULATING CLERK) Anatomical Region Laterality Modality Body N/A Mammography 06/26/2024 5:52 AM RECORD TABULATING CLERK Narrative 06/26/2024 5:53 AM RECORD TABULATING CLERK EXAM DESCRIPTION: DEXA AXIAL SKELETON BONE DENSITY 1 OR MORE SITES REASON FOR STUDY: 68 y/o year old F with given history of: Postmenopausal status. History of prior fracture. Patient has taken/is taking vitamin-D and calcium [employer] Technician/Model: [employer] A (S/N [id number]) Facility LSC value of 0.022 for the AP spine, 0.027 for the femur, and 0.023 for the forearm. CLINICAL INFORMATION: Current height: 62 inches Maximum height: 63 inches Weight: 103 pounds Risk factors: Prior fracture COMPARISON: 10/26/2022 FINDINGS: AP LUMBAR SPINE L1-L4: Total BMD is 0.749 g/cm2 T-score is -2.7 This is a 15.8% increase in comparison to prior exam which is statistically significant. LEFT HIP: Total BMD is 0.512 g/cm2 T-score is -3.5 This is a 1.4% decrease in comparison to prior exam which is not statistically significant. Femoral neck BMD is 0.440 g/cm2 T-score is -3.7 FRAX: FRAX not reported due to T-scores of hip, femoral neck and/or spine being at or below -2.5 (Osteoporosis). IMPRESSION: Osteoporosis. REFERENCE: Bone mineral density: T-Score: Normal (T-score above or = -1.0) Low bone mass (T-score between -1.0 and -2.5) replaces the previously used term osteopenia Osteoporosis (T-score = or below -2.5) Z-Score: Within the expected range for age (Z-score above -2.0) Below the expected range for age (Z-score is -2.0 or below) Please see below follow up recommendations. Medical evaluation for secondary causes of low bone mineral density may be appropriate. FRAX is a World Health Organization validated fracture risk assessment tool that calculates a person's 10 year probability of a major osteoporosis related fracture and hip fracture. According to the National Osteoporosis Foundation guidelines, postmenopausal women and men age 50 or older with low bone mass and a 10 year probability of a major osteoporosis related fracture = or greater than 20% or a 10 year probability of a hip fracture = or greater than 3% should be considered for pharmacological treatment for the prevention of osteoporosis. For further information, including treatment recommendations, please refer to the 2019 ISCD Official Positions (http://www.iscd.org) and the NOF's Clinician's Guide to Prevention and Treatment of Osteoporosis (http://www.nof.org/professionals/clinical-guidelines) THIS IS AN ELECTRONICALLY VERIFIED FINAL REPORT 06/26/2024 5:53 AM - Electronically signed by Shabana Colon M.D. TW: TW Report ID: [id number] Reading Location: [id number] Procedure Note Shabana Colon MD - 06/26/2024 EXAM DESCRIPTION: DEXA AXIAL SKELETON BONE DENSITY 1 OR MORE SITES REASON FOR STUDY: 68 y/o year old F with given history of:Postmenopausal status. History of prior fracture. Patient has taken/is taking vitamin-Dand calcium Hazardous Waste Technician/Model: [employer] A (S/N [id number]) Facility LSC value of 0.022 for the AP spine, 0.027 for the femur, and0.023 for the forearm. CLINICAL INFORMATION: Current height: 62 inches Maximum height: 63 inches Weight: 103 pounds Risk factors: Prior fracture COMPARISON: 10/26/2022 FINDINGS: AP LUMBAR SPINE L1-L4: Total BMD is 0.749 g/cm2 T-score is -2.7 This is a 15.8% increase in comparison to prior exam which isstatistically significant. LEFT HIP: Total BMD is 0.512 g/cm2 T-score is -3.5 This is a 1.4% decrease in comparison to prior exam which is notstatistically significant. Femoral neck BMD is 0.440 g/cm2 T-score is -3.7 FRAX: FRAX not reported due to T-scores of hip, femoral neck and/or spine beingat or below -2.5 (Osteoporosis). IMPRESSION: Osteoporosis. REFERENCE: Bone mineral density: T-Score: Normal (T-score above or = -1.0) Low bone mass (T-score between -1.0 and -2.5) replaces thepreviously used term osteopenia Osteoporosis (T-score = or below -2.5) Z-Score: Within the expected range for age (Z-score above -2.0) Below the expected range for age (Z-score is -2.0 or below) Please see below follow up recommendations. Medical evaluation forsecondary causes of low bone mineral density may be appropriate. FRAX is a World Health Organization validated fracture risk assessmenttool that calculates a person's 10 year probability of a major osteoporosisrelated fracture and hip fracture. According to the National OsteoporosisFoundation guidelines, postmenopausal women and men age 50 or older with low bonemass and a 10 year probability of a major osteoporosis related fracture = or greater than 20% or a 10 year probability of a hip fracture = or greaterthan 3% should be considered for pharmacological treatment for the preventionof osteoporosis. For further information, including treatment recommendations, please referto the 2019 ISCD Official Positions (http://www.iscd.org) and the NOF's Clinician's Guide to Prevention and Treatment of Osteoporosis (http://www.nof.org/professionals/clinical-guidelines) THIS IS AN ELECTRONICALLY VERIFIED FINAL REPORT 06/26/2024 5:53 AM - Electronically signed by Shabana Colon M.D. TW: TW Report ID: [id number] Reading Location: [place] [address] Alondra BROWN IMRicardo DXA PROCEDURES Fi nal Result * Stool DNA - Cologuard (07/14/2023 12:30 PM CDT) Pathologist [facility] Stool DNA - Cologuard Negative Negative [facility] (CLIA #:[id number]) Comment: NEGATIVE TEST RESULT. A negative Cologuard result indicates a low likelihood that a colorectal cancer (CRC) or advanced adenoma (adenomatous polyps with more advanced pre-malignant features) is present. The chance that a person with a negative Cologuard test has a colorectal cancer is less than 1 in 1500 (negative predictive value >99.9%) or has an advanced adenoma is less than 5.3% (negative predictive value 94.7%). These data are based on a prospective cross-sectional study of 10,000 individuals at average risk for colorectal cancer who were screened with both Cologuard and colonoscopy. (Zelda Alcantara al, N Engl J Med 2014;370(14):3181-3167) The normal value (reference range) for this assay is negative. COLOGUARD RE-SCREENING RECOMMENDATION: Periodic colorectal cancer screening is an important part of preventive healthcare for asymptomatic individuals at average risk for colorectal cancer. Following a negative Cologuard result, the [place] Cancer Society and U.S. Multi-Society Task Force screening guidelines recommend a Cologuard re-screening interval of 3 years. References: [place] [employer] Guideline for Colorectal Cancer Screening: https://www.cancer.org/cancer/eifws-evzcnl-kajobc/mvgpjzeta-vibbimlts-grfzqbr/ac s-rec ommendations.html.; Pepito DK, Candy ESCOBAR, Dwaine AkersK, Colorectal Cancer Screening: Recommendations for Physicians and Patients from the U.S. Multi-Society Task Force on Colorectal Cancer Screening , Am J Gastroenterology 2017; 112:8143-6007. TEST DESCRIPTION: Composite algorithmic analysis of stool DNA-biomarkers with hemoglobin immunoassay. Quantitative values of individual biomarkers are not reportable and are not associated with individual biomarker result reference ranges. Cologuard is intended for colorectal cancer screening of adults of either sex, 45 years or older, who are at average-risk for colorectal cancer (CRC). Cologuard has been approved for use by the U.S. FDA. The performance of Cologuard was established in a cross sectional study of average-risk adults aged 50-84. Cologuard performance in patients ages 45 to 49 years was estimated by sub-group analysis of near-age groups. Colonoscopies performed for a positive result may find as the most clinically significant lesion: colorectal cancer [4.0%], advanced adenoma (including sessile serrated polyps greater than or equal to 1cm diameter) [20%] or non- advanced adenoma [31%]; or no colorectal neoplasia [45%]. These estimates are derived from a prospective cross-sectional screening study of 10,000 individuals at average risk for colorectal cancer who were screened with both Cologuard and colonoscopy. (Zelda Mcbride et al, N Engl J Med 2014;370(14):9726-5338.) Cologuard may produce a false negative or false positive result (no colorectal cancer or precancerous polyp present at colonoscopy follow up). A negative Cologuard test result does not guarantee the absence of CRC or advanced adenoma (pre-cancer). The current Cologuard screening interval is every 3 years. ([place] Cancer Society and U.S. Multi-Society Task Force). Cologuard performance data in a 10,000 patient pivotal study using colonoscopy as the reference method can be accessed at the following location: www.3dim.liveBooks/results. Additional description of the Cologuard test process, warnings and precautions can be found at www.[employer] Resourcesrd.liveBooks. Stool 07/14/2023 12:3 0 PM CDT 07/15/2023 7:29 PM CDT Stacey Oliva MD LAB BODY FLUIDS AND STOO LS ORDERABLES Final Result [facility] (CLIA #:[id number]) [place] [address] * Hepatitis panel, acute (12/22/2020 12:06 PM CDT) Hep A IgM NON-REACTI VE NON-REACT FAREED [facility] Comment: For additional information, please refer to http://education.Famo.us/faq/FQZ778 (This link is being provided for informational/ educational purposes only.) HepBsAg NON-REACTI VE NON-REACT FAREED [facility] Hep B core IgM NON-REACTI VE NON-REACT FAREED [facility] Hep C Ab NON-REACTI VE NON-REACT FAREED [facility] SIGNAL TO CUT-OFF 0.01 <1.00 [facility] Comment: HCV antibody was non-reactive. There is no laboratory evidence of HCV infection. In most cases, no further action is required. However, if recent HCV exposure is suspected, a test for HCV RNA (test code 93860) is suggested. For additional information please refer to http://education.Famo.us/faq/ZTQ44t3 (This link is being provided for informational/ educational purposes only.) Blood specimen (specimen) 12/22/2020 12:06 PM CDT 12/22/2020 12:07 PM CDT Alondra BROWN LAB MICROBIOLOGY - NERAL ORDERABLES Final Result [facility] [id number] [facility] [place] [address] from Last 3 Months or Most Recently Relevant to Health Maintenance Insurance [facility] AETNA MEDICARE [facility] Address: [facility] [id number] [place] [phone] AETNA MEDICARE [facility] Address: [facility] [id number] [place] [phone] AETNA MEDICARE [facility] Address: [id number] [place] [phone] [facility] MEDIC[facility] Address: [facility] [id number] [place] [phone] AETNA MEDICARE Advance Directives For more information, please contact: [phone] * Full Code (Latest Code Status on File) Date Activated Date Inactivated Comments 04/24/2024 7:31 AM 04/24/2024 1:43 PM * Full Code Date Activated Date Inactivated Comments 10/21/2021 10:11 PM 10/25/2021 6:36 PM * Full Code Date Activated Date Inactivated Comments 08/05/2021 10:55 AM 08/05/2021 4:39 PM * Full Code Date Activated Date Inactivated Comments 04/08/2021 10:47 AM 04/08/2021 3:21 PM Care Teams Director Mobile Relationship Specialty Start Date End Date Shane Puckett MD [address] [place] [address] PCP - General Internal Medicine 08/17/17 Ingris Katz MD [address] [place] [address] Consulting Physician Critical Care Med 12/22/20 Manuel Weiss MD [address] [place] [address] Referring Physician Pulmonary Disease 06/03/21 Shane Gage MD [address] [place] [address] Consulting Physician Rheumatology 03/08/23
--- OUTSIDE RECORDS SUMMARY | 2025-01-06 14:10 | XMS_ITS | Encounter Summary ---
Author Organization [facility] Healthcare Address [address] [place] [address] Care Team Providers Care Boring Mill Operator For Metal Name Role Phone Shane Puckett MD Primary Care Provider [phone] Ulises GARSIA MD, John J. Unavailable Ingris Katz MD Unavailable [phone] Manuel Weiss MD Unavailable [phone] Shane Gage MD Unavailable Encounter Details Date Type Department Care Team (Late st Contact Info) Description 08/30/2017 Orders Only [facility] Health Information Management [address] [place] [id number] Scanning, Provider Social History Tobacco Use Types Packs/Day Years Used Date Smoking Tobacco: Never Smokeless Tobacco: Never Alcohol Use Standard Drinks/Week Comments Yes 1 (1 standard drink = 0.6 oz pur e alcohol) occassionally Comments Unknown Sex and Gender Information Value Date Recorded Sex Assigned at Not on file Legal Sex Female 11:34 AM CDT Gender Identity Female 10/25/2021 9:40 AM CDT Sexual Orientation Straight 10/25/2021 9: 40 AM CDT documented as of this encounter Plan of Treatment Not on file documented as of this encounter Procedures Procedure Name Priority Date/Time Associated Diagnosis Comments SCAN - LABS 08/30/2017 CARDIOLOGY DOCUMENT SCAN 08/30/2017 documented in this encounter Results * SCAN - LABS (08/30/2017) us Provider Scanning Final Result * Cardiology Document Scan (08/30/2017) Anatomical Region Laterality Modality Other us Provider Scanning CV CARDIAC SERVICES PROCEDURES Final Result documented in this encounter Visit Diagnoses Not on filedocumented in this encounter Additional Health Concerns Infection Onset Date Last Indicated Resolved Time COVID: Suspected 10/21/2021 10/21/2021 10/21/2021 4:39 PM CDT Parainfluenza, droplet 10/21/2021 10/21/202110/28 3:05 AM CDT documented as of this encounter Care Teams Boring Mill Operator For Metal Relationship Specialty Start Date End Date Shane Puckett MD [address] [place] [address] PCP - General Internal Medicine 08/17/17 Kurt Montgomery III, MD [address] [place] [address] Consulting Physician Rheumatology 11/10/20 03/07/23 Ingris Katz MD [address] [place] [address] Consulting Physician Critical Care Med 12/22/20 Manuel Weiss MD [address] [place] [address] Referring Physician Pulmonary Disease 06/03/21 Shane Gage MD [address] [place] [address] Consulting Physician Rheumatology 03/08/23 documented as of this encounter
--- OUTSIDE RECORDS SUMMARY | 2025-01-06 14:10 | XMS_ITS | Clinical Summary ---
Author Organization [facility] Address [address] [place] [phone] Phone Care Team Providers Care Regulatory Affairs Associate Name Role Phone Shane Puckett MD Primary Care Provider [phone] Allergies Active Allergy Reactions Criticality Noted Date Comments Naproxen Nausea 05/21/2018 Has to take with food Medications levothyroxine (SYNTHROID) 100 MCG Tablet Take by mouth. Acti ve sertraline (ZOLOFT) 50 MG Tablet Take by mouth. Activ e ALPRAZolam (XANAX PO) Take by mouth. Acti ve omeprazole (PRILOSEC) 40 MG CAPSULE DELAYED RELEASE Take by mouth. Active valACYclovir (VALTREX) 1 GM Tablet Take 0.5 Tabs by mouth 3 times daily. 21 Tab 9 Active methylPREDNISol one (MEDROL DOSPACK) 4 MG Tablet Therapy Pack Follow instructions on pack, take with food; Give one pack 1 Dose Pack 9 Active Active Problems Problem Noted Date Diagnosed Date Herpes zoster without complication 05/21/2018 Social History Tobacco Use Types Packs/Day Years Used Date Smoking Tobacco: Never Smokeless Tobacco: Never Alcohol Use Standard Drinks/Week Comments Yes 0 (1 standard drink = 0.6 oz pur e alcohol) social Comments No Sex and Gender Information Value Date Recorded Sex Assigned at Not on file Legal Sex Female 4:17 PM GEAR REPAIRER Gender Identity Not on file Sexual Orientation Not on file Last Filed Vital Signs Vital Sign Reading Time Taken Comments Blood Pressure 122/68 05/21/2018 4:42 PM GEAR REPAIRER Pulse 76 05/21/2018 4:42 PM GEAR REPAIRER Temperature 38.1 C (100.5 F) 05/21/2018 4:42 PM GEAR REPAIRER Respiratory Rate 16 05/21/2018 4:42 PM GEAR REPAIRER Oxygen Saturation 97% 05/21/2018 4:42 PM GEAR REPAIRER Inhaled Oxygen Concentration - - Weight 54 kg (119 lb) 05/21/2018 4:42 PM GEAR REPAIRER Height - - Body Mass Index - - Plan of Treatment Health Maintenance Due Date Last Done Comments Hepatitis C Virus (HCV) Screening 1955 TdaP Immunization 1955 Cologuard 1998 Colonoscopy 1998 Colorectal Cancer Screening 1998 Immunochemical Fecal Occult Blood 1998 Pneumococcal Immunization (5 0+ years) (1 of 1 - PCV) 11/07/2003 Zoster Immunization (1 of 2) 11/07/2003 Respiratory Syncytial Virus (RSV) Immunization (Adult) (1 - Risk 60-74 years 1-dose series) 2013 Influenza Immunization (#1) 2024 SARS-COV-2 Immunization ( season) 2024 03/29/2021, 07/18/2020, 06/27/2020 Hepatitis B Immunization Aged Out No longer eligible based on patient's age to complete this topic Human Papillomavirus (HPV) Immunization Aged Out No longer eligible b ased on patient's age to complete this topic Meningococcal Immunization (ACWY) Aged Out No longer eligible b ased on patient's age to complete this topic Rotavirus Immunization Aged Out No lo nger eligible based on patient's age to complete this topic Care Teams Regulatory Affairs Associate Relationship Specialty Start Date End Date Shane Puckett MD PCP - General Internal Medicine 05/21/18
--- OUTSIDE RECORDS SUMMARY | 2025-01-06 14:10 | XMS_ITS | Patient Health Record ---
Author Organization [facility] ([address]) Address [address] [facility] [address] [place] [address] Care Team Providers Care Excavator Operator Name Role Phone Lalalupis Shane Primary Care Provider Xin Gastelum Unavailable [phone] Allergies Allergen (clinical drug ingredient) Drug/Non Drug Allergy documented on EMR Reaction Allergy Type Onset Date Status naproxen Naproxen nausea itching Drug Allergy Ac tive Reason For Referral No Information Medications Medication SIG (Take, Route, Frequency, Duration) Notes Start Date End Date Status Azelastine HCl 137 MCG/SPRAY 2 sprays in each nostril Nasally Twice a day; Duration: 30 days 10/30/2023 Active Folic Acid 1 MG 1 tablet Orally Once a day Active Spironolactone 25 MG 1 tablet Orally Active busPIRone HCl 5 MG 1 tablet Orally Twic e a day Active Esomeprazole Magnesium 40 MG 1 capsule O rally Once a day Active Ferrous Sulfate 325 (65 Fe) MG 1 tablet Orally Three times a Week Active Ezetimibe 10 MG 1 tablet Orally Once a day Active Sertraline HCl Activ e Furosemide 20 MG 1 tablet Orally Once a day Active Arnuity Ellipta 100 MCG/ACT 1 puff Inhal ation Once a day Active Albuterol Sulfate HFA 108 (90 Base) MCG/ACT 1 puff as needed Inhalation every 4 hrs Active Tadalafil 20 MG 1 tablet as needed Orally Once a day Active Synthroid 125 MCG 1 tablet in the morn ing on an empty stomach Orally Once a day Active Opsumit 10 MG 1 tablet Orally Once a day Active Social History Tobacco Use: Social History Observation Description Date Details (start date - stop date) Never Smoker NA - NA Tobacco Control (Standard) Question Answer Notes Tobacco use: Nonsmoker Problems Problem Type SNOMED Code ICD Code Onset Dates Problem Status W/U Status Risk Notes Problem Chronic allergic conjunctivitis (05436995) Other chronic allergic conjunctivitis (H10.45) Active confirmed Problem Raynaud's disease (599084924) Raynaud's syndrome without gangrene (I73.00) Active confirmed Problem Allergic rhinitis caused by pollen (disorder) (93104798) Allergic rhinitis due to pollen (J30.1) Active confirmed Problem Allergic rhinitis (80595114) Other allergic rhinitis (J30.89) Active confirmed Problem Allergic rhinitis caused by animal hair and dander ([id number]) Allergic rhinitis due to animal (cat) (dog) hair and dander (J30.81) Active confirmed Plan Of Treatment No Information Insurance Providers Payer Name Payer Address Payer Phone Subscriber Number Group Number Insured Name Patient Relationship to Insured Coverage Start Date Coverage End Date [employer] [address] [place] [address] [id number] Soo Coello Self - patient is the insured 4 Medical (General) History Medical History History ICD Code Systemic sclerosis, unspecified M34.9 Raynaud's syndrome without gangrene I73. 00 Gastro-esophageal reflux disease without esophagitis K21.9 Chronic rhinitis J31.0 Surgical History Surgery Date(Month/Year) Appendicitis 11/11/1966 cholecystectomy 01/28/2010 dilation and curettage 06/28/1976 Sinus surgery Esophogus dialation 07/30/2023
--- NOTE | 2025-01-27 08:25 | WPDSLEEPSTUD ---
Sleep Study Date of Study: 01/06/25 Ordering Provider: Jeb KeithMD Interpreting Physician: Stacey Farmer, Sleep Study Type: Polysomnogram Height: 1.57 m Weight: 46.72 kg Body Mass Index: 18.8 Neck Circumference (inches): 16.5 [place]: 3 Reason for Sleep Study Previously diagnosed with central sleep apnea and prescribed oxygen after CPAP didn't resolve it. Sleep History The patient is a 69 year old female that had a sleep study by her ENT for evaluation sleep apnea. The patient denies awakening sleep short of breath. She denies awakening at night with heartburn, belching or cough. She denies snoring. She denies having trouble sleeping when she has a cold. She denies waking up gasping for air throughout the night. She denies having breathing problems at night observed by herself or others. She denies sweating excessively at night. She occasionally has heart palpitations or irregular heartbeats during the night. She denies falling asleep during the day. She denies falling asleep while driving. He denies sleep paralysis, cataplexy and hypnagogic/ hypnopompic hallucinations. She denies having trouble at school or work due to sleepiness. She denies feeling afraid of going to sleep. She denies having nightmares. She occasionally remembers her dreams. She occasionally has thoughts racing through her mind. She occasionally feels sad or depressed. She constantly has anxiety. She occasionally has muscular tension. She denies noticing parts of her body jerk. She denies kicking during the night she denies having crawling and aching feelings in and denies having leg pain she denies grinding her teeth during sleep. She rarely awakens with morning jaw pain. She is frequently bothered by pain during the day. She denies waking up due to pain throughout the night. She rarely wakes up feeling stiff in the morning. She occasionally wakes up with sore or achy muscles. She occasionally wakes up with pain in neck, spine and other joints. She goes to bed at 2:30 a.m. on weekdays and at 3:00 a.m. on the weekends. It takes her 15 minutes or less to fall asleep. She does not typically wake up throughout the night. She wakes up at 10:00 a.m.. She typically gets 7-8 hours of sleep per night. She will stay in bed for 15 minutes after waking up in the morning. She currently lives with her . She denies consuming any caffeinated beverages within 2 hours of bedtime. She denies engaging in physical exercise before bedtime. She denies reading or watching television before falling asleep. She will occasionally take naps in afternoon or the evening and they are refreshing. She denies consuming any caffeinated beverages throughout day. She denies tobacco, alcohol and recreational drug use. [facility] Past Medical History Medical History Mitral valve regurgitation Bilateral cataracts Osteoporosis Right hip pain Chest discomfort Fracture, jaw Adult BMI <19 kg/sq m Esophageal stricture Right ear pain Encounter for Medicare annual wellness exam [facility] discharge follow-up Chronic obstructive pulmonary disease (COPD) suggested by initial evaluation Acute recurrent sinusitis Unintentional weight loss Swelling of lymph node Pleuritic chest pain Herpes zoster without complication Family history of early CAD Closed fracture of left wrist Fever Cough Diarrhea Interstitial lung disease Iron deficiency anemia TMJ (temporomandibular joint syndrome) CKD (chronic kidney disease) Cognitive changes Stress Pulmonary hypertension associated with systemic disorder Edema Pulmonary edema Skin plaque Sinus drainage Scleroderma Abnormal PFT Shortness of breath Diastolic dysfunction Scoliosis Follow up Nasal sinus congestion Elevated homocysteine Unexplained weight loss Elevated serum creatinine Adult BMI 19-24 kg/sq m Itching Hx of colonic polyps Statin intolerance BMI 20.0-20.9, adult Hearing loss Gastroparesis GERD (gastroesophageal reflux disease) Anxiety Encounter for routine adult health examination without abnormal findings On long chain beamer drug therapy Hypothyroidism (acquired) Hyperlipidemia Family History Family History Father Cerebrovascular accident Family history of coronary artery disease Grandparent Acute myocardial infarction Social History Social History Smoking status: Never smoker Second hand tobacco smoke exposure: No Alcohol intake: never Substance use: never Substance use type: does not use Lack of Transportation: No Lack of Food: Never True Current Housing: I Have Housing Concerned About Future Housing: No Difficulty Paying Gas/Electric Bills: No Difficulty Paying for Meds: No Currently Unemployed: No Education: Trade/Vocational Certificate Difficulty w/ Childcare or Family Care: No Living arrangements: with family Occupation/Education: retired Gender identity (if verbalized by the patient): Female Spiritual care concerns: No Medications Home Medications ?Medication ?Instructions ?Recorded ?Confirmed ?Type furosemide 20 mg tablet See Rx Instructions .Route .COMPLEX 07/06/21 11/20/24 History spironolactone 25 mg tablet 12.5 mg PO DAILY 01/22/23 11/20/24 History Solray -D .Route 03/03/24 11/20/24 History Vitamin B12 oral spray .Route 03/03/24 11/20/24 History acetaminophen 325 mg capsule See Rx Instructions .Route 03/03/24 11/20/24 History .COMPLEX PRN azelastine 137 mcg-fluticasone 50 1 spray intranasal BID 03/03/24 11/20/24 History mcg/spray nasal spray buspirone 5 mg tablet 5 mg PO TID 03/03/24 11/20/24 History denosumab 60 mg/mL subcutaneous 60 mg subcut [id number] 03/03/24 11/20/24 History syringe (Prolia) macitentan 10 mg-tadalafil 40 mg 1 tablet PO DAILY 03/03/24 11/20/24 History tablet (Opsynvi) albuterol sulfate 90 mcg/actuation 2 puff inhalation Q4H PRN 05/01/24 11/20/24 Rx aerosol inhaler shortness of breath or wheezing #8.5 grams cholecalciferol (vitamin D3) 50 50 mcg PO DAILY 07/03/24 11/20/24 History mcg (2,000 unit) capsule vonoprazan 10 mg tablet (Voquezna) 10 mg PO DAILY 07/11/24 11/20/24 History Held on 11/20/24. Instructions: Pt states she stopped due to side effects sertraline 100 mg tablet See Rx Instructions .Route 09/01/24 11/20/24 Rx .COMPLEX #90 tabs ferrous sulfate 325 mg (65 mg See Rx Instructions .Route 11/10/24 11/20/24 Rx iron) tablet .COMPLEX #90 tabs cetirizine 10 mg tablet (Allergy 10 mg PO DAILY PRN Allergy 11/20/24 11/20/24 Rx Relief (cetirizine)) Symptoms #90 tabs omeprazole magnesium 20 mg 20 mg PO DAILY #30 tabs 11/20/24 11/20/24 Rx tablet,delayed release (Prilosec OTC) potassium chloride 10 mEq See Rx Instructions .Route 11/20/24 11/20/24 Rx capsule,extended release .COMPLEX #90 caps folic acid 1 mg tablet See Rx Instructions .Route 11/21/24 Rx .COMPLEX #90 tabs evolocumab 140 mg/mL subcutaneous 140 mg subcut ONCE #2 mL 12/30/24 Rx pen injector (Repatha SureClick) alprazolam 0.5 mg tablet 0.5 mg PO TID #30 tabs 01/08/25 Rx fluticasone furoate 100 See Rx Instructions .Route 01/12/25 Rx mcg/actuation blister powder for .COMPLEX #30 ea inhalation (Arnuity Ellipta) Sleep Procedure A full night polysomnogram using the Triventus multi-channel system recorded the standard physiologic parameters including EEG, EOG, submentalis EMG, anterior tibialis EMG, EKG, body position, nasal and oral airflow using nasal pressure sensor and thermistor.? Respiratory parameters of chest and abdominal movements were recorded with Respiratory Inductance Plethysmography belts. Oxygen saturation was recorded by pulse oximetry. Video monitoring was also performed. Sleep stages, periodic limb movements, and EEG arousals were scored in 30 second epochs according to the criteria of the AASM Scoring Manual. The Apnea-Hypopnea Index was calculated using [facility] guidelines for definition of hypopnea with 4% O2 desaturations while scoring respiratory events. Sleep Architecture The total recording time was 404.5 minutes.? The total sleep time was 332.0 minutes. Sleep latency was 31.8 minutes. REM latency was 280.0 minutes. Sleep efficiency was 82.1%. The patient had 28 awakenings for an awakening index of 5.1. Wake after sleep onset time was 40.5 minutes. The patient spent 26.5 minutes, 8.0% of total sleep time in Stage N1. The patient spent 245.0 minutes, 73.8% in Stage N2. The patient spent 41.0 minutes, 12.3% in Stage N3. The patient spent 19.5 minutes, 5.9% in Stage REM sleep. Respiratory Analysis The patient had 1 hypopnea and 13 central apneas for an overall Apnea Hypopnea Index of 2.5. The REM Apnea Hypopnea Index was 0. The NREM Apnea Hypopnea Index was 2.7. The patient had a Central Apnea Hypopnea Index of 2.3. There was no evidence of Dannie-Partida Respirations. Arousals There were 157 total arousals for an arousal index of 28.4. There were 56 spontaneous arousals for an index of 10.1. There were 2 arousals due to respiratory events for an index of 0.4. There were 82 arousals due to periodic limb movements for an index of 14.8.? There were 17 arousals due to isolated limb movements for an index of 3.1. Periodic Limb Movements The patient had 42 isolated limb movements with an index of 7.6. The patient had 238 periodic limb movements with an index of 43.0, which is elevated (normal <15). Patient had a total of 280 limb movements with a total limb movement index of 50.6. Oximetry Data The patient had an average oxygen saturation of 90.5% in sleep with a minimum oxygen saturation of 86.0% and a maximum oxygen saturation of 98.0%. The patient had 3 oxygen desaturations that were 4% or greater resulting in an Oxygen Desaturation Index of 0.5.? The patient spent 20.4 minutes, 5.1% of total sleep time with an oxygen saturation below 88%. Snoring Profile Mild snoring was present throughout the study. Cardiac Profile The EKG showed normal sinus rhythm with occasional PVCs. The patient had an average pulse rate of 72.6 bpm with a minimum pulse of rate of 40.0 bpm and a maximum pulse rate of 87.0 bpm.? EEG Profile No signs of seizure activity seen. Assessment and Plan Assessment and Plan (1) PLMD (periodic limb movement disorder): Code(s): G47.61 - Periodic limb movement disorder Status: Acute Assessment and Plan: The patient had an overall AHI of 2.5 with desaturation down to 86%. This is not consistent with sleep-disordered breathing. The patient had a significant number of limb movements during the study with the majority being periodic in nature. The patient has been previously diagnosed with Restless Leg Syndrome. Approximately 1/3 of the periodic limb movements caused arousals in the patient's sleep. I recommend that the patient have a serum ferritin drawn for evaluation of iron deficiency anemia. If the patient has a serum ferritin less than 75 ng/mL, I recommend starting a daily iron supplement and a Vitamin C supplement for better absorption. If the serum ferritin is greater than 75 ng/mL, I recommend starting a dopamine agonist and titrating the dose until symptoms resolve. There are nonpharmacological methods to treat limb movements including daily exercise, stretching calf muscles before bed, avoiding excessive amounts of caffeine and alcohol, vitamin B supplementation, magnesium lotion massaged into legs before bed, and use of a weighted blanket. Once the patient's periodic limb movements are mostly resolved, I recommend repeating the sleep study. The patient will likely be able to achieve deeper levels of sleep once the leg movements are minimized, which could result in an AHI>5. Data The data obtained during this sleep study is adequate for interpretation. Certification This sleep study has been reviewed by a board certified sleep medicine physician.
[2025-01-28 12:38] VITALS: BMI 18.8
== END ==
LOC: ANHCSM 12:50
PROVIDERS: PCP Internal Medicine; Visit Provider Otolaryngology
DX: G47.61 Periodic limb movement disorder (principal)
CPT/HCPCS: 95810

== ENCOUNTER 2025-03-24 14:56 | Outpatient (CLI) | payer MEDICARE, SELFPAY ==
--- OUTSIDE RECORDS SUMMARY | 2022-08-30 13:00 | XMS_ITS | Encounter Summary ---
Author Organization [facility] Address [address] [place] [address] Phone Care Team Providers Care Retail Selling Specialist Name Role Phone Shane Puckett MD Primary Care Provider [phone] Ulises GARSIA MD, Kurt Celis Unavailable [phone] Ingris Katz MD Unavailable [phone] Manuel Weiss MD Unavailable [phone] Reason for Referral * Procedure (Routine) - Closed Specialty Diagnoses / Procedures Referred By Briana t Referred To Contact Diagnoses Pulmonary artery hypertension Procedures Pulmonary Function Test -[facility] Adult PFT Lab- [facility]; Spirometry, Lung Volumes; Pleth with Airway Resistance Manuel Weiss MD [address] [place] [address] Phone: tel: fax: Referral ID Status Reason Start Date Expiration Date Visits Re quested Visits Authorized [id number] Closed 08/16/2022 09/15/2023 1 1 Reason for Visit * Procedure (Routine) - Closed Specialty Diagnoses / Procedures Referred By Contac t Referred To Contact Diagnoses Pulmonary artery hypertension Procedures Pulmonary Function Test -[facility]- [facility]; Spirometry, Lung Volumes; Pleth with Airway Resistance Manuel Weiss MD [address] [place] [address] Phone: tel: fax: Referral ID Status Reason Start Date Expiration Date Visits Re quested Visits Authorized [id number] Closed 08/16/2022 09/15/2023 1 1 Encounter Details Date Type Department Care Team (Latest Contact Info) Description 08/30/2022 2:00 PM CDT Hospital Encounter [facility] Medicine PFT Lab [address] [facility] [address] [place] [id number] Pulmonary artery hypertension (HCC) Social History Tobacco Use Types Packs/Day Years Used Date Smoking Tobacco: Never Smokeless Tobacco: Never Alcohol Use Standard Drinks/Week Comments Yes 1 (1 standard drink = 0.6 oz pur e alcohol) occassionally AUDIT-C Answer Date Recorded Q1: How often do you have a drink containing alcohol? Never 04/24/2024 Q2: How many drinks containi ng alcohol do you have on a typical day when you are drinking? Patient does not drink Q3: How often do you have si x or more drinks on one occasion? Never 04/24/2024 Personal Safety Answer Date Recorded Have you ever been in or are you currently in a harmful physical or emotional relationship or is someone making you feel afraid or unsafe? Denies 01/17/2025 Comments No Sex and Gender Information Value Date Recorded Sex Assigned at Not on file Legal Sex Female 11:34 AM CDT Gender Identity Female 10/25/2021 9:40 AM CDT Sexual Orientation Straight 10/25/2021 9: 40 AM CDT documented as of this encounter Functional Status * C.A.G.E. Question Answer Date of Assessment Author Have you ever felt the need to Cut down on your drinking? 0 11/12/2023 8:32 AM CDT Fang Elise, CRISTINA Have people ever Annoyed yo u by criticizing your drinking? 0 11/12/2023 8:32 AM CDT Fang Elise RN Have you ever felt bad or Guilty about your drinking? 0 11/12/2023 8:32 AM SANYAT Fang Elise RN Have you ever had a drink first thing in the morning to steady your nerves or get rid of a hangover? Eye photoradio operator? 0 11/12/2023 8:32 AM SANYAT Fang Elise RN CAGE SCORE: 2 or Greater = Positive 0 11/12/2023 8:32 AM CDT Fang Elise RN * Difference in Last Two Rell Scores Answer Date of Assessment Author 0 04/24/2024 9:10 AM Esthela Dixon RN * Question Answer Date of Assessment Author BP Location Left arm 03/03/2025 1:05 PM Kimmy English RN BP Method Automatic 03/03/2025 1:05 PM Kimmy English RN MAP (mmHg) 85 01/17/2025 4:45 PM CDT Daniela Pineda, CRISTINA * Dulce Fall Risk Question Answer Date of Assessment Author History of Falling 25 01/24/2024 4:25 PM CDT Madai Kruger RN Secondary Diagnosis 15 01/24/2024 4:25 PM CD Madai Perdue RN Ambulatory Aids 15 01/24/2024 4:25 PM SANYAT Madai Nieves RN Intravenous Therapy/Heparin/Saline Lock 0 01/24/2024 4:25 PM CDT Delphine Kruger RN Gait/Transferring 20 01/24/2024 4:25 PM CDT Madai Kruger RN Mental Status 0 01/24/2024 4:25 PM CDT Madai Gore RN Cardona Fall Risk Score (Score >= 45 places fall precaution order) 75 01/24/2024 4:25 PM CDT Madai Kruger RN Prior Fall Event (Autopopula chadwick from EMR) None found 01/24/2024 4:25 PM CDT Madai Kruger, CRISTINA * Rell Scale Question Answer Date of Assessment Author Sensory Perceptions 4 04/24/2024 9:10 AM CS Esthela Aguirre RN Moisture 4 04/24/2024 9:10 AM TRAFFIC SIGNAL TECHNICIAN Esthela Funes RN Activity 4 04/24/2024 9:10 AM TRAFFIC SIGNAL TECHNICIAN Esthela Funes RN Mobility 3 04/24/2024 9:10 AM TRAFFIC SIGNAL TECHNICIAN Esthela Funes RN Nutrition 2 04/24/2024 9:10 AM TRAFFIC SIGNAL TECHNICIAN Esthela Funes RN Friction and Shear 3 04/24/2024 9:10 AM Esthela Dixon RN Rell Scale Score 20 04/24/2024 9:10 AM Esthela Dixon RN * Fall Risk Interventions Question Answer Date of Assessment Author All Low Fall Interventions Applied Yes 11/12/2023 8:32 AM Fang Alfaro RN All Moderate Fall Interventions Applied No 11/12/2023 8:32 AM Fang Alfaro RN All Moderate Fall Risk Interventions EXCEPT: Fall risk sign with education;OT eval requested or obtained;PT eval requested or obtained 11/12/2023 8:32 AM Fang Alfaro RN All High Fall Risk Interventions Applied No 11/12/2023 8:32 AM Fang Alfaro RN All High Risk Interventions EXCEPT: Bed alarm;Chair alarm 11/12/2023 8:32 AM Fang Alfaro, CRISTINA * B.M.A.T. - Bedside Mobility Assessment Tool for Nurses Question Answer Date of Assessment Author Is patient able to participate in the BMAT? Yes 11/12/2023 8:32 AM Marilin Alfaro RN BMAT Level Level 4 - Green 11/12/2023 8:32 AM CDT Fang Busby RN * Question Answer Date of Assessment Author Is the patient being treated today because it is known or suspected that they prepared, started, or tried to end their life? No 01/17/2025 3:09 PM CDT Alie Oliver RN * Question Answer Date of Assessment Author 1. In the past month, have you wished you were or that you could go to sleep and not wake up? No 01/17/2025 3:09 PM Alie Wood RN 2. In the past month, have you actually had any thoughts of killing yourself? No 01/17/2025 3:09 PM Alie Wood RN 6. Have you ever done anything, started to do anything, or prepared to do anything to end your life? No 01/17/2025 3:09 PM Bridgette Wood RN * Suicide Risk Level Answer Date of Assessment Author No risk level 01/17/2025 3:09 PM Bridgette Wood RN * Alcohol Withdrawal BP Hierarchy Answer Date of Assessment Author 62 12/11/2022 1:28 PM Leeanna Mena RN * Pressure Injury Prevention Question Answer Date of Assessment Author Pressure Ulcer Prevention Interventions Keep skin clean and dry (Sensory Perception/Moisture) ;Establish turning schedule (Sensory Perception/Activity/ Mobility) 04/24/2024 8:05 AM Kala Harvey RN * AUDIT-C Score Answer Date of Assessment Author 0 04/24/2024 7:59 AM Ra elva Harvey RN * Alcohol Use Question Answer Date of Assessment Author Q1: How often do you have a drink containing alcohol? Never 04/24/2024 7:59 AM Kala Harvey RN Q2: How many drinks containing alcohol do you have on a typical day when you are drinking? Patient does not drink 04/24/2024 7:59 AM Kala Harvey RN Q3: How often do you have six or more drinks on one occasion? Never 04/24/2024 7:59 AM Kala Harvey RN * Integumentary Question Answer Date of Assessment Author Skin Condition/Temp Dry;Warm 01/17/2025 3 :31 PM Daniela Herrera RN Skin Integrity Redness 01/17/2025 3:31 PM Daniela Herrera RN Integumentary (WDL) X 01/17/2025 3 :31 PM Daniela Herrera RN Skin Pertinent Negatives Dry;Warm 025 3:31 PM CDT Daniela Rodríguez, CRISTINA Skin Location approx 8 scattered r ed areas the size of a quarter on bilater legs, lower buttocks. No welps. Painful. Reports several ground bees stung her - no blistering or welps noted. Denies itching 01/17/2025 3:31 PM CDT Daniela Rodríguez, CRISTINA * Fall Risk Assessment Tool - MEDFRAT Question Answer Date of Assessment Author Prior Fall Event (Autopopulated from EMR) None found 01/17/2025 3:10 PM CDT Roberta Oliver RN History of falling in last 3 months, including since admission 0 01/17/2025 3:10 PM Alie Wood RN Confusion or disorientation 0 01/17/2025 3: 10 PM SANYAT Bridgette Oliver RN Intoxicated or sedated 0 01/17/2025 3:10 PM Bridgette Wood RN Impaired gait 0 01/17/2025 3:10 PM CDT Bridgette Damon RN Mobility assist device used 0 01/17/2025 3: 10 PM Bridgette Wood RN Altered elimination 0 01/17/2025 3:10 PM CD Bridgette Crowe RN Fall risk score: (1-2 low risk), (3-4 moderate risk), (5 or more high risk) 0 01/17/2025 3:10 PM CDT Meagan Oliver RN * Integumentary Question Answer Date of Assessment Author Integumentary (WDL) WDL 04/24/2024 9:30 AM Esthela Stanford RN * Erll Scale Question Answer Date of Assessment Author Rell Scale Used Rell 04/24/2024 9:30 AM Esthela Dixon, CRISTINA * Question Answer Date of Assessment Author BP Location Left arm 03/03/2025 1:05 PM Kimmy English RN BP Method Automatic 03/03/2025 1:05 PM Kimmy English RN * Question Answer Date of Assessment Author Percent Meal Eaten (%) 75 11/12/2023 11:25 A M Cathie Dunaway, CRISTINA * Fall Risk Interventions Question Answer Date of Assessment Author All Low Fall Interventions Applied Yes 11/12/2023 8:32 AM Fang Alfaro RN All Moderate Fall Interventions Applied No 11/12/2023 8:32 AM Fang Alfaro RN All Moderate Fall Risk Interventions EXCEPT: Fall risk sign with education;OT eval requested or obtained;PT eval requested or obtained 11/12/2023 8:32 AM Fang Alfaro RN All High Fall Risk Interventions Applied No 11/12/2023 8:32 AM Fang Alfaro RN All High Risk Interventions EXCEPT: Bed alarm;Chair alarm 11/12/2023 8:32 AM Fang Alfaro RN * ADL Screening Question Answer Date of Assessment Author Patient's Vision Adequate to Safely Complete Daily Activities Yes 11/12/2023 8:20 AM Flores Pearce RN Patient's Judgement Adequate to Safely Complete Daily Activities Yes 11/12/2023 8:20 AM Flores Pearce RN Patient's Memory Adequate to Safely Complete Daily Activities Yes 11/12/2023 8:20 AM Flores Pearce RN Patient Able to Express Needs/Desires Yes 11/12/2023 8:20 AM Flores Pearce RN Dressing Independent 11/12/2023 8:20 AM Flores Emerson RN Feeding Independent 11/12/2023 8:20 AM Flores Emerson RN Bathing Independent 11/12/2023 8:20 AM Flores Emerson RN Toileting Independent 11/12/2023 8:20 AM Flores Emerson RN In/Out Bed Independent 11/12/2023 8:20 AM Flores Emerson RN Walks in Home Independent 11/12/2023 8:20 AM Flores Downing RN Weakness of Legs None 11/12/2023 8:20 AM Flores Pack RN Weakness of Arms/Hands None 11/12/2023 8:20 AM Flores Pearce RN Hearing - Right Ear Hearing aid 01/24/2024 4:00 PM Madai Lopez RN Hearing - Left Ear Hearing aid 01/24/2024 4:00 PM Madai Corbin RN Dominant hand? Right 11/12/2023 8:20 AM Flores Adams RN Decline in ADLs in last 2 weeks? No 11/12/2023 8:20 AM Flores Pearce RN * Therapy Consults Question Answer Date of Assessment Author PT Evaluation Needed 2 11/12/2023 8:20 AM Flores Meng RN OT Evaluation Needed 2 11/12/2023 8:20 AM C Flores Beck RN THREAD TRIMMER Evaluation Needed 2 11/12/2023 8:20 AM Flores Pearce RN * Assistive Devices Question Answer Date of Assessment Author Assistive Devices/DME Eyeglasses;Oxygen; Wa lker 01/24/2024 4:00 PM Madai Corbin RN documented as of this encounter Mental Status * Short Blessed Test Question Answer Entry Date Author What year is it now? 0 01/24/2024 4:25 PM Madai Corbin RN What month is it now? 0 01/24/2024 4:25 PM Madai Corbin RN Without looking at the clock, tell me what time it is 0 01/24/2024 4:25 PM Madai Corbin RN Count aloud backwards from 20- 0 01/24/2024 4:25 PM Madai Corbin RN Say the months of the year backwards in reverse order 0 01/24/2024 4:25 PM Madai Corbin RN Repeat the name and address I asked you to remember 2 01/24/2024 4:25 PM CDT Lafata, Madai M., RN Repeat this name and address after me Kurt Pinto [address] [place] [address] 01/24/2024 4:25 PM CDT Madai Kruger RN Short Blessed Total Score 2 01/24/2024 4:25 PM CDT Madai Kruger RN * Question Answer Entry Date Author Level of Consciousness Awake 9:30 AM Esthela Dixon RN Orientation Oriented X4 (person, place, time, situation) 04/24/2024 9:30 AM Esthela Dixon RN Neuro (WDL) X 04/24/2024 9:30 AM Esthela Dixon RN documented in this encounter Plan of Treatment Not on file documented as of this encounter Procedures Procedure Name Priority Date/Time Associated Diagnosis Comments PULMONARY FUNCTION TEST (PFT) Routine 08/30/2022 2:24 PM CDT Pulmonary artery hypertension (HCC) documented in this encounter Results * Pulmonary Function Test - (08/30/2022 2:24 PM CDT) FVC PRE 1.96 L [facility] FVC %PRE PRED 72 % [facility] FEV1 PRE 1.60 L [facility] FEV1 %PRE PRED 75 % [facility] FEV1/FVC PRE 81.8 % [facility] FRC PL PRE 2.[address] [facility] FRC PL %PRE PRED 94 % [facility] RV PRE 1.86 L [facility] RV %PRE PRED 90 % [facility] TLC PRE 4.01 L [facility] TLC %PRE PRED 84 % [facility] Anatomical Region Laterality Modality PFT 08/30/2022 2:07 PM CDT Narrative 09/03/2022 8:57 PM CDT SEE PDF PFT performed at:->[facility]- [facility] Procedure:->Spirometry Procedure:->Lung Volumes Lung Volumes via:->Pleth with Airway Resistance us Manuel Weiss MD PFT ORDERABLES Final Res ult documented in this encounter Visit Diagnoses Diagnosis Pulmonary artery hypertension Other chronic pulmonary heart diseases documented in this encounter Care Teams Retail Selling Specialist Relationship Specialty Start Date End Date Shane Puckett MD PCP - General Internal Medicine 08/17/17 Kurt Montgomery III, MD [address] [place] [address] Consulting Physician Rheumatology 11/10/20 03/07/23 Ingris Katz MD [address] [place] [address] Consulting Physician Critical Care Med 12/22/20 Manuel Weiss MD [address] [facility] [address] [place] [address] Referring Physician Pulmonary Disease 06/03/21 documented as of this encounter
--- OUTSIDE RECORDS SUMMARY | 2023-12-12 11:30 | XMS_ITS ---
Author Organization [facility] [place] ([address]) Address [address] [place] [address] Care Team Providers Care Seat Joiner Chainstitch Name Role Phone Shane Puckett Primary Care Provider UnavailXin Ho Unavailable [phone] REASON FOR VISIT ARC follow-up Encounters Encounter Location Date Provider Diagnosis [facility] [address] [place] [address] 12/12/2023 Xin Archibald Plan Of Treatment No Information Progress Notes * Elle CHAPMANOB:1955 ([age] yo F)Acc No.[id number]:12/12/2023 Progress Notes Patient: Soo BRADSHAW Provider: Delphine Archibald MD :1955 A ge:68 Y S ex:Female Date:12/12/2023 [address] [id number] Pcp:Shane Puckett Subjective: * Chief Complaints: * 1 . ARC follow-up. * Medical History: Objective: * Vitals: Assessment: Plan: * Treatment: * Billing Information: * Visit Code: * Procedure Codes: * Electronic signature of Evelin Archibald MD on 03/24/2025 at 04:45 PM AQUATIC DIRECTOR Sign off status: Pending * Provider: Delphine Archibald MD Date: 0 12/12/2023 Generated for Jayden clarke/Tucker/Star on: 1 05/24/2024 04:45 PM AQUATIC DIRECTOR
[2025-03-24 16:37] LABS: Influenza A QL RT-PCR Negative (Negative); Influenza B QL RT-PCR Negative (Negative); RSV RNA, RT-PCR Negative (Negative); SARS-CoV-2 RNA PCR Negative (Negative)
--- OUTSIDE RECORDS SUMMARY | 2025-03-24 16:45 | XMS_ITS | Encounter Summary ---
Author Organization [facility] Address [address] [place] [address] Phone Care Team Providers Care Program Manufacturing Leader Name Role Phone Shane Puckett MD Primary Care Provider [phone] Ingris Katz MD Unavailable Manuel Weiss MD Unavailable Shane Gage MD Unavailable Encounter Details Date Type Department Care Team (Late st Contact Info) Description 02/13/2025 Results Follow-Up [facility] Medicine Gastroenterology [address] [facility] [address] [place] [address] Stacey Oliva MD [address] [place], [place] [id number] [place] Esophagram, Double Contrast Social History Tobacco Use Types Packs/Day Years [...] on file documented as of this encounter Visit Diagnoses Not on filedocumented in this encounter Care Teams Program Manufacturing Leader Relationship Specialty Start Date End Date Shane Puckett MD PCP - General Internal Medicine 08/17/17 Ingris Katz MD [address] [place] [address] Consulting Physician Critical Care Med 12/22/20 Manuel Weiss MD [address] [place] [address] Referring Physician Pulmonary Disease 06/03/21 Shane Gage MD [address] [place] [address] Consulting Physician Rheumatology 03/08/23 documented as of this encounter
--- OUTSIDE RECORDS SUMMARY | 2025-03-24 16:45 | XMS_ITS | Clinical Summary ---
Author Organization [facility] [address] Address [address] [place] [address] Care Team Providers Care Product Mgmt Dev Manager Name Role Phone Shane Puckett MD Primary Care Provider [phone] Ingris Katz MD Unavailable [phone] Manuel Weiss MD Unavailable [phone] Shane Gage MD Unavailable [phone] Allergies Active Allergy Reactions Criticality Noted Date Comments Latex Redness Low 08/05/2021 Atorvastatin Muscle pain Medium 11/25/2021 Patient has tried 2+ times with same response. Unable to tolerate Naproxen Unknown 07/04/2023 makes her feel funny Qriuhqc-Tpz-Jvz Reductase Inhibitors Muscle pain Medium 08/16/2022 Medications [...] 1 tablet (125 mcg total) by mouth sharemilker before breakfast Active fluticasone furoate (ARNUITY) 100 mcg/actuation inhalerIndicati ons:Maintenance Therapy for Asthma Inhale 1 puff daily Rinse mouth with water after use. Do not swallow. 30 each 022 Active famotidine (PEPCID) 20 mg tabletIndicatio ns:Heartburn Take 1 tablet (20 mg total) by mouth daily as needed for heartburn Active mv,radha,iron,mn/ folic acid/chol (THJN-ZEGB-IBPH S, PABA, ORAL)Indication s:supplement Take 1 tablet [...] every 6 months 1 mL 1 Active azelastine (ASTELIN) 137 mcg (0.1 %) [...] 1 TIME A DAY 30 tablet 11 Active busPIRone (BUSPAR) 5 mg tablet TAKE 1 TABLET BY MOUTH THREE TIMES A DAY 270 tablet 3 Active HYDROcodone-jose alfredo taminophen (NORCO) 5-325 mg per tabletIndicatio ns:Pain Take 1 tablet by mouth every 6 (six) hours as needed for pain 10 tablet Active fluticasone propionate (Xhance) 93 mcg/actuation aerosol breath activated Administer into affected nostril(s) Active omeprazole (PriLOSEC) 40 mg capsule Take 1 capsule (40 mg total) by mouth 2 (two) times a day 180 capsule 6 Active spironolactone (ALDACTONE) 25 mg tablet Take 1 tablet (25 mg total) by mouth daily 90 tablet 3 025 2025 Active furosemide (LASIX) 20 mg tablet TAKE 2 TABLETS (40 MG TOTAL) BY MOUTH DAILY. 180 tablet 1 Active furosemide (LASIX) 20 mg tablet TAKE 2 TABLETS (40 MG TOTAL) BY MOUTH DAILY. 180 tablet 1 025 2024 Discontinued spironolactone (ALDACTONE) 25 mg tablet Take 0.5 tablets (12.5 mg total) by mouth daily 45 tablet 3 025 2024 Discontinued(A lternate therapy) Hospital, Clinic, or Other Facility Administered Medication Ordered Dose Route Frequency Start Date End Date Status perflutren protein-a (OPTISON) 3 mL in sodium chloride 0.9% 8 mL syringe 1 - 8 mL IV Once in imaging 08/30/2022 Active Active Problems Problem Noted Date Diagnosed Date Interstitial lung disease 01/21/2025 Allergic rhinitis 02/22/2024 Allergic rhinitis due to [...] current Assessment & Plan (03/26/2024 10:54 AM SPECIAL EVENTS MANAGER): Jaw fracture in 09/2022 following tooth extraction. S/p surgical fixation with good healing. DEXA (09/2022) shows osteoporosis. Started Evenity in 06/15/23-12/2023. Started Prolia on 02/29/24 and repeating this every [address] [facility]. Using Vit D spray 2 times daily. Recent Vit D (43) per PCP labs. Drinks ovaltine twice daily. Will order repeat DEXA since finishing Evenity. Assessment & Plan (09/14/2023 4:47 PM CDT): Jaw fracture in 09/2022 following tooth extraction. S/p surgical fixation with good healing. DEXA shows osteoporosis. Started Evenity in 06/15/23 and getting this done at [facility]. Will likely do 1 year of Evenity then transition to prolia to maintain bone density. Denies hx MS. Not currently taking any vitamin D or calcium supplementation. Drinks ovaltine twice daily. Check Vitamin D and BMP today. Assessment & Plan (03/07/2023 11:16 AM SPECIAL EVENTS MANAGER): Jaw fracture in 09/2022 following tooth extraction. S/p surgical fixation with good healing. DEXA shows osteoporosis. Discussed Evenity. Will get baseline creatinine, calcium, and Vitamin D levels before starting this. Will likely do 1 year of Evenity then transition to prolia to maintain bone density. Denies hx MS. Not currently taking any vitamin D or [...] 09/09/2021 Assessment & Plan (03/07/2023 1:47 PM SPECIAL EVENTS MANAGER): Continue symptomatic treatment with lubricating eye drops [...] scleroderma. Assessment & Plan (03/22/2022 11:58 AM SPECIAL EVENTS MANAGER): Continue symptomatic treatment with lubricating eye drops [...] 06/03/2021 Assessment & Plan (03/26/2024 10:54 AM SPECIAL EVENTS MANAGER): Improvement since starting medications for clinical trial [...] future. Assessment & Plan (03/07/2023 1:39 PM SPECIAL EVENTS MANAGER): Improvement since starting medications for clinical trial. [...] future. Assessment & Plan (03/22/2022 11:57 AM SPECIAL EVENTS MANAGER): Improvement since starting medications for clinical trial. [...] triggers. Assessment & Plan (06/03/2021 10:26 AM SPECIAL EVENTS MANAGER): Notes improvement since starting medications for clinical trial . Denies any digital ulcerations. Continue to keep core warm, dress in layers, and avoid environmental triggers. Dysphagia 06/03/2021 Assessment & Plan (03/26/2024 10:58 AM SPECIAL EVENTS MANAGER): EGD w/ dilation on 08/29/22. Repeating this [...] helping. Assessment & Plan (03/07/2023 1:44 PM SPECIAL EVENTS MANAGER): Saw ENT for EGD w/ dilation on [...] pain. Assessment & Plan (03/22/2022 11:58 AM SPECIAL EVENTS MANAGER): Saw GI for EGD w/ dilatation in [...] 10/03/21. Assessment & Plan (06/03/2021 10:30 AM SPECIAL EVENTS MANAGER): Saw GI for EGD w/ dilatation in 12/2020. Continues to c/o acid reflux but has been eating smaller portions and changing to a low acidity diet. Continue to follow with GI. Research study patient 03/15/2021 Overview (03/15/2021): Added automatically from request for surgery [id number] Polyarthralgia 01/05/2021 Assessment & Plan (03/26/2024 10:56 AM SPECIAL EVENTS MANAGER): Low positive RF IgM (12.0) and patient [...] symptoms. Assessment & Plan (03/07/2023 1:43 PM SPECIAL EVENTS MANAGER): Low positive RF IgM (12.0) and patient [...] symptoms. Assessment & Plan (03/22/2022 11:55 AM SPECIAL EVENTS MANAGER): Low positive RF IgM (12.0) and patient [...] symptoms. Assessment & Plan (06/03/2021 9:57 AM SPECIAL EVENTS MANAGER): Low positive RF IgM (12.0) and patient [...] 44% Assessment & Plan (03/26/2024 10:56 AM SPECIAL EVENTS MANAGER): Seeing Alcira Weiss. Tx w/ Opsynvi (macitentan/tadalafil). [...] PASP. Assessment & Plan (03/07/2023 1:43 PM SPECIAL EVENTS MANAGER): Seeing Alcira Weiss for clinical trial. She is randomized to either fixed-dose combination tadalafil plus macitentan versus either tadalafil or macitentan monotherapy. Started trial on 04/19/21 and will last for 30 months. R heart cath on 08/05/21 showed improvement of PAH when compared to prior R heart cath in 03/2021. Echo continues to show improvement of PASP. Assessment & Plan (08/30/2022 11:30 AM CDT): Seeing Alcira Weiss for clinical trial. She is randomized to either fixed-dose combination tadalafil plus macitentan versus either tadalafil or macitentan monotherapy. Started trial on 04/19/21 and will last for 30 months. R heart cath on 08/05/21 showed improvement of PAH when compared to prior R heart cath in 03/2021. Repeating PFT and TTE today per jas study. Assessment & Plan (03/22/2022 11:56 AM SPECIAL EVENTS MANAGER): Seeing Alcira Weiss for clinical trial. She will be randomized to either fixed-dose combination tadalafil plus macitentan versus either tadalafil or macitentan monotherapy. Started trial on 04/19/21 and will last for 30 months. R heart cath on 08/05/21 shows improvement of PAH when compared to prior R heart cath in 03/2021. Assessment & Plan (10/25/2021 12:43 PM CDT): Follows with [facility] pulmonology and in study Pulm HTN team notified of admission and may continue study drug as at home. Assessment & Plan (10/24/2021 11:39 AM CDT): Follows with [facility] pulmonology and in study Pulm HTN team notified of admission and may continue study drug as at home. Assessment & Plan (10/23/2021 10:52 AM CDT): Follows with [facility] pulmonology and in study Pulm HTN team notified of admission and may continue study drug as at home. Assessment & Plan (10/22/2021 1:06 PM CDT): Follows with [facility] pulmonology and in study I spoke with Pulm HTN team and may continue study drug as at home. Assessment & Plan (09/09/2021 4:04 PM CDT): [facility]. She will be randomized to either fixed-dose combination tadalafil plus macitentan versus either tadalafil or macitentan monotherapy. Started trial on 04/19/21 and will last for 30 months. R heart cath on 08/05/21 shows improvement of PAH when compared to prior R heart cath in 03/2021. Assessment & Plan (06/03/2021 10:24 AM SPECIAL EVENTS MANAGER): [facility]. She will be [...] study. Assessment & Plan (03/26/2024 10:52 AM SPECIAL EVENTS MANAGER): +BILL >1:5120 centromere pattern, anti-CENP (>240), and [...] at this time. Continue to [facility] Follow up in 1 year. Sooner if [...] follow with Alcira mark. Follow up in 6 months. Sooner if needed. Seen with Dr. Gage. Assessment & Plan (03/07/2023 12:54 PM SPECIAL EVENTS MANAGER): +BILL >1:5120 centromere pattern, anti-CENP (>240), and [...] this time. Continue to follow with Alcira mark for clinical trials. States she is getting labs routinely for clinical trials per [facility]. Follow up in 6 months. Sooner if [...] w/ ENT 08/29/22. She is establishing with GI Dr. Oliva in 11/2022. 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 Treatment remains symptomatic at this time. Continue to follow with [facility] for clinical trials. States she is getting labs routinely for clinical trials per [facility]. Follow up in 6 months. Sooner if needed. Seen with Dr. Montgomery. Assessment & Plan (03/22/2022 11:53 AM SPECIAL EVENTS MANAGER): +BILL >1:5120 centromere pattern, anti-CENP (>240), and [...] at this time. Continue to follow with [facility] for clinical trials. States she is getting labs routinely for clinical trials per [facility]. Follow up in 6 months. Sooner if [...] at this time. Continue to follow with [facility] for clinical trials. States she is getting labs routinely for clinical trials per [facility]. Follow up in 6 months. Sooner if needed. Seen with Dr. Montgomery. Assessment & Plan (06/03/2021 10:32 AM SPECIAL EVENTS MANAGER): +BILL >1:5120 centromere pattern, anti-CENP (>240), and [...] at this time. Continue to follow with [facility] for clinical trials. States she is getting labs routinely for clinical trials per [facility]. Follow up in 3-4 months. Sooner if [...] Dr. Montgomery had previously spoken with patient's sheep and wheat farmer Dr. Katz and it was agreed to start Tracleer, an endothelin receptor antagonist, for patient's PAH. However, Dr. Katz is going to refer patient to a sheep and wheat farmer who specializes with this treatment process. This [...] will discuss potential treatment plan with patient's sheep and wheat farmer Dr. Katz. Would avoid systemic steroids due [...] 08/20/2017 Assessment & Plan (03/07/2023 1:45 PM SPECIAL EVENTS MANAGER): Hx PAH and in clinical trial per [facility] pulmonology. Currently on supplemental oxygen at night but has been using 3L during the day while at rest. Chest CT (09/2021 and 09/2022) did not show any ILD. Assessment & Plan (08/30/2022 11:35 AM CDT): Hx PAH and in clinical trial per [facility] pulmonology. Currently on supplemental oxygen at night [...] echocardiogram that is being done today at [facility]. Other chest pain 08/20/2017 Assessment & Plan [...] Encounters Date Type Department Care Team Description 03/03/2025 12:53 PM SPECIAL EVENTS MANAGER - 03/03/2025 11:59 PM SPECIAL EVENTS MANAGER Hospital Encounter [address] [address] Kimmy Banegas RN Age-related osteoporosis with current pathological fracture with routine healing, subsequent encounter (Primary Dx) Discharge Disposition: Discharge to home or self care 02/25/2025 Orders Only [address] [address] Nettie Wick, CRISTINA 02/13/2025 Results Follow-Up [facility] Medicine Gastroenterology [address] [facility] [address] [place] [id number] Stacey Oliva MD [place] Esophagram, Double Contrast 02/09/2025 9:22 AM CDT - 02/09/2025 11:59 PM CDT Hospital Encounter [facility] [address] [place] [address] Gastroesophageal reflux disease, unspecified whether esophagitis present; Dysphagia, unspecified type Discharge Disposition: Discharge to home or self care 01/26/2025 Results Follow-Up [facility] Medicine Pulmonary [address] [facility] 8th [place] [address] [place] [address] Manuel Weiss MD Transthoracic Echo (TTE) Complete W Doppler/CF 01/21/2025 9:30 AM CDT - 01/21/2025 11:59 PM CDT Hospital Encounter [facility] Cardiac Diagnostic Lab [address] [facility] [address] [place] [address] Pulmonary artery hypertension; Chronic right-sided CHF (congestive heart failure) (HCC); Limited systemic sclerosis (HCC) Discharge Disposition: Discharge to home or self care 01/21/2025 8:40 AM CDT Office Visit [facility] Gastroenterology [address] [facility] 12[address] [place] [address] [place] [address] Stacey Oliva MD Irritable bowel syndrome with diarrhea (Primary Dx); Gastroesophageal reflux disease, unspecified whether esophagitis present; Dysphagia, unspecified type; Interstitial lung disease (HCC) 01/17/2025 3:20 PM CDT - 01/17/2025 4:54 PM CDT Emergency [facility] [address] [place] [id number] Bee sting, accidental or unintentional, initial encounter (Primary Dx) Discharge Disposition: Discharge to home or self care from Last 3 Months Immunizations Immunization Administration [...] Name Comments Hearing loss Brother 1 Blaze Antunezerpadminifejone Multiple myeloma Brother 1 Blaze Oberkfejone Tuberculosis Brother 2 Michael Oviedo Oberkfejone Thyroid [...] Michael Shipley Rheum arthritis Mother's Brother 2 W Quinten Hearing loss Paternal Grandmother Rae Wyattfejone Hearing loss Sister Li Singh Anesthesia problems Neg Hx Relation Name Status Comments Brother 1 Blaze Oberkfell (Age 72) Brother 2 Michael Oviedo Oberkfejone (Age 16 m [facility]) Daughter Father Harlan Oberkfell (Age 85) Maternal Grandfather Driss Shipley Maternal Grandmother Ioana Shipley Mother Crissy Oberkfell (Age 70) Mother's Brother 1 Michael Shipley Mother's Brother 2 W Quinten Paternal Grandmother Rae Tulioerkfell Sister Li Francisco Social History Tobacco Use Types Packs/Day Years [...] Orientation Straight 10/25/2021 9: 40 AM CDT Last Filed Vital Signs Vital Sign Reading Time Taken Comments Blood Pressure 111/69 03/03/2025 1:05 PM SPECIAL EVENTS MANAGER Pulse 76 03/03/2025 1:05 PM SPECIAL EVENTS MANAGER Temperature 37.3 C (99.1 F) 03/03/2025 1:05 PM SPECIAL EVENTS MANAGER Respiratory Rate 20 03/03/2025 1:05 PM SPECIAL EVENTS MANAGER Oxygen Saturation 97% 03/03/2025 1:05 PM SPECIAL EVENTS MANAGER Inhaled Oxygen Concentration - - Weight 47.2 kg (104 lb) 01/21/2025 8:40 AM CDT Height 157.5 cm (5' 2) 01/21/2025 8:40 AM CDT Body Mass Index 19.02 01/21/2025 8:40 AM CDT Plan of Treatment Health Maintenance Due Date Last Done Comments Breast Cancer Screening-Mammogram 1955 Colon Cancer Screening-Colonoscopy 1955 Depression Screening 1955 DTaP/Tdap/Td Vaccine (1 - Tdap) 1966 Hepatitis B Screening 11/07/1971 Well Visit 65+ 2018 Zoster Vaccine (3 of 3) 04/03/2020 02/07/2020, 05/11 Covid-19 Vaccine (4 - 2024-2 6 season) 2024 03/29/2021, 07/18/2020, 06/27/2020 Influenza Vaccine (#1) 2024 , 04/08/2021, 02/07/2020 Fall Risk Assessment 01/23/2025 01/24/2024 Osteoporosis Screening-Bone Density Scan 06/25/2026 06/25/2024, 10/26/2022 Pneumococcal vaccine 65+ Completed 02/07/2020, 04/30 Hepatitis C Screening Completed 12/22/2020 Colon Cancer Screening-DNA Stool Discontinued 07/14/19 Colon Cancer Screening-FIT Discontinued 07/14/2023 Procedures Procedure Name Priority Date/Time Associated Diagnosis Comments FL ESOPHAGRAM, DOUBLE CONTRAST Schedule Routine, Read Routine (OP Routine) 02/09/2025 10:51 AM CDT Gastroesophageal reflux disease, unspecified whether esophagitis present Dysphagia, unspecified type TRANSTHORACIC ECHO (TTE) COMPLETE W DOPPLER/CF WO CONTRAST Routine 01/21/2025 10:34 AM CDT Pulmonary artery hypertension Chronic right-sided CHF (congestive heart failure) (HCC) Limited systemic sclerosis (HCC) DEXA AXIAL SKELETON BONE DENSITY 1 OR MORE SITES Schedule Routine, Read Routine (OP Routine) 06/25/2024 2:23 PM SPECIAL EVENTS MANAGER Age-related osteoporosis with current pathological fracture with routine healing, subsequent encounter Age-related osteoporosis with current pathological fracture, right pelvis, initial encounter for fracture STOOL DNA COLOGUARD Routine 07/14/2023 12:30 PM CDT Screening for colon cancer HEPATITIS PANEL, ACUTE Routine 12/22/2020 12:06 PM CDT Fatigue, unspecified type from Last 3 Months or Most Recently Relevant to Health Maintenance Results * FL Esophagram, Double Contrast (02/09/2025 10:51 AM CDT) Anatomical Region Laterality Modality Body N/A Radio Fluoroscop y 02/09/2025 11:0 4 AM CDT Impressions 02/09/2025 11:47 AM CDT 1. Mild esophageal dysmotility. 2. Small sliding-type hiatal hernia. 3. Moderate gastroesophageal reflux. Dictated by: Josiah Rodriguez MD The radiology attending physician has personally reviewed this study, and had reviewed and/or edited this written report and agrees with it. Electronically signed by: Rashad Jurado M.D. Narrative 02/09/2025 11:47 AM CDT EXAMINATION: DOUBLE CONTRAST BARIUM ESOPHAGRAM HISTORY: History of scleroderma presenting with dysphasia TECHNIQUE: The patient was given barium and effervescent crystals to drink, and multiple fluoroscopic and conventional overhead radiographs were obtained. FINDINGS: The patient's swallowing function is normal. The esophageal mucosa is normal without fold abnormalities or masses. There is mild esophageal dysmotility. There is passage of contrast through a normal gastroesophageal junction. There is small sliding-type hiatal hernia. The visualized portions of the stomach are normal. There is moderate gastroesophageal reflux up to the level of clavicles. Procedure Note Rashad Jurado MD - 02/09/2025 EXAMINATION: DOUBLE CONTRAST BARIUM ESOPHAGRAM HISTORY: History of scleroderma presenting with dysphasia TECHNIQUE: The patient was given barium and effervescent crystals to drink, and multiple fluoroscopic and conventional overhead radiographs were obtained. FINDINGS: The patient's swallowing function is normal. The esophageal mucosa is normal without fold abnormalities or masses. There is mild esophageal dysmotility. There is passage of contrast through a normal gastroesophageal junction. There is small sliding-type hiatal hernia. The visualized portions of the stomach are normal. There is moderate gastroesophageal reflux up to the level of clavicles. IMPRESSION: 1. Mild esophageal dysmotility. 2. Small sliding-type hiatal hernia. 3. Moderate gastroesophageal reflux. Dictated by: Josiah Rodriguez MD The radiology attending physician has personally reviewed this study, and had reviewed and/or edited this written report and agrees with it. Electronically signed by: Rashad Jurado M.D. us Daniela BROWN IMG FLUOROSCOPY NIESHA SMITH Final Result * TRANSTHORACIC ECHO (TTE) COMPLETE W DOPPLER/CF WO CONTRAST (01/21/2025 10:34 AM CDT) EF Mod BP 76 % CONS SCIMAGE Anatomical Region Laterality Modality Ultrasound 01/21/2025 9:42 AM CDT Narrative 01/21/2025 10:53 AM CDT [facility] [place]iac [place] [address] [place] [address] Transthoracic Echocardiographic Report Patient Name: SOO COELLO D : 1955 (69y 2m) Sex: F Study Date: 01/21/2025 09:42:33 AM Ht(Inch): 62 Wt(Lb): 104.06 BSA: 1.44 Packager Machine: Glenn Le RDCS Location: [facility] Order Provider: MANUEL WEISS Heart Rate: 66 BMI: 19.03 BP: 110 / 63 Ref Provider: MANUEL WEISS PROCEDURES: Echocardiographic Report: Transthoracic complete echo with strain imaging, 2D, spectral and tissue Doppler, color flow Doppler, M-mode. INDICATIONS: I27.21 Secondary pulmonary arterial hypertension, I50.812 Chronic right heart failure, and M34.9 Systemic sclerosis, unspecified. CONCLUSIONS: 1. Normal left ventricular size based on volume index. Concentric LV remodeling. There is hyperdynamic left ventricular systolic function. The Ejection Fraction (Pappas's) is measured at 76 %. The average global longitudinal strain is normal. 2. Normal right ventricular size. Normal right ventricular systolic function. 3. The estimated right ventricular systolic pressure is 55-60 mmHg. ATTESTATION: I have personally reviewed and interpreted this study without fellow or resident. DISCLAIMER: The study images and the final report will be retained in the patient chart by the Echo Laboratory for the legally required time period. This chart constitutes the legal record of any testing performed. FINDINGS: Left Ventricle: Normal left ventricular size based on volume index. Concentric LV remodeling. There is hyperdynamic left ventricular systolic function. The Ejection Fraction (Pappas's) is measured at 76 %. The average global longitudinal strain is normal. The LV global strain is: -21.9 %. Right Ventricle: Normal right ventricular size. Normal right ventricular systolic function. Left Atrium: The left atrium is normal in size. Right Atrium: Right atrial dilatation. Mitral Valve: Normal Mitral Valve Structure. Mild mitral valve regurgitation. Aortic Valve: Normal trileaflet aortic valve. No aortic regurgitation. No aortic valve stenosis. Aortic valve dimensionless index is 0.73. Tricuspid Valve: Normal Tricuspid valve structure. Mild tricuspid regurgitation. The estimated right ventricular systolic pressure is 55-60 mmHg. Pulmonic Valve: Normal pulmonic valve structure. No pulmonic regurgitation. No pulmonic valve stenosis present. Pericardium: Normal pericardium without pericardial effusion. Aorta: Normal aortic root size at sinuses of Valsalva. Dilation of the aortic root when indexed. IVC: The IVC was <2.1 cm and collapsibility >50%. (est. RA pressure 0-5 mmHg). PASP: Estimated pulmonary artery systolic pressure is consistent with moderate pulmonary hypertension (50-70mmHg). Rhythm: Normal Sinus rhythm was seen during the study. MEASUREMENTS: 2D/MM Value Range Doppler Value Range LVIDd 2D 3.68 cm [ 3.80 - 5.20 ] AV Peak James 1.3 m/s [ 1.0 - 1.7 ] LVIDs 2D 2.23 cm [ 2.20 - 3.50 ] AV Peak PG 6.76 mmHg IVSd 2D 0.97 cm [ 0.60 - 0.90 ] AV Mean PG 4 mmHg LVPWd 2D 0.92 cm [ 0.60 - 0.90 ] AV VTI 32.6 cm LV Thickness Ratio 1.1 LVOT Peak James 1.0 m/s [ 0.7 - 1.1 ] LV FS 2D 39.40 % [ 27.00 - 45.00 ] LVOT Peak PG 4.00 mmHg LV Mass 2D 104.51 g LVOT Mean PG 2 mmHg LV Mass Index 2D 72.73 g/m2 LVOT VTI 23.8 cm RWT 0.50 LVOT Diam 1.77 cm EDV Mod BP 70.25 ml [ 46.00 - 106.00 ] TORIN VTI 1.80 cm2 LV EDV Index 48.89 ml/m2 LVOT/AV VTI 0.73 - Dimensionless index (DVI) ESV Mod BP 16.55 ml [ 14.00 - 42.00 ] MV E Peak James 0.8 m/s [ 0.6 - 1.3 ] EF Mod BP 76 % [ 54 - 74 ] MV A Peak James 1.0 m/s [ 1.0 - 1.2 ] LV GLS -21.9 % [ -25.0 - -18.0 ] MV E/A 0.9 ratio [ 0.8 - 1.5 ] LA Length 4C 5.13 cm MV VTI 18.1 cm LA Length 2C 5.21 cm MV Decel Time 178.36 msec [ 104.00 - 258.00 ] LA Volume BP 34.82 ml Med E` James 9.5 cm/sec [ 8.0 - 25.0 ] LA Volume Index 24.23 ml/m2 [ 16.00 - 34.00 ] Lat E` James 9.3 cm/sec [ 10.0 - 25.0 ] MV Annulus 2D 1.92 cm Average E/E` 8.51 RV Base Dimen 2D 3.4 cm [ 2.5 - 4.2 ] MV Alias James 0.328 m/s TAPSE 2.50 cm [ 1.71 - 5.00 ] MR VTI 192.8 cm RA Volume 41.07 ml MR Flow 18.55 ml/sec RA Volume Index 28.58 ml/m2 MR PISA 0.3 IVC Diam 1.19 cm MR EROA 0.1 cm2 IVC Collapse 59 % PISA Regurgitant Volume 19.3 ml AoR Diam 2D 3.22 cm [ 2.70 - 3.70 ] MV Regurgitant Volume 6.0 ml Ao Root Index 2.24 cm/m2 [ 1.00 - 2.00 ] MV Regurgitant Fraction 11 % Asc Ao Diam 2D 2.84 cm RV S` 13.04 cm/sec Asc Ao Index 1.98 cm/m2 TR Peak James 3.8 m/s [ 1.0 - 2.8 ] TV Annulus 2D 2.50 cm TR Peak PG 57.8 mmHg TR VTI 149.3 cm PV Peak James 0.7 m/s [ 0.4 - 0.8 ] PV Peak PG 1.96 mmHg Electronically Signed By: Johan Zhou MD 01/21/2025 10:52:16 AM CDT Procedure Note Johan Zhou MD - 01/21/2025 [facility] [place] [place] [address] Transthoracic Echocardiographic Report Patient Name: SOO COELLO D : 1955 (69y 2m) Sex: F Study Date: 01/21/2025 09:42:33 AM Ht(Inch): 62 Wt(Lb): 104.06 BSA: 1.44 Packager Machine: Glenn Le PARKER Location: [facility] Order Provider:MANUEL WEISS Heart Rate: 66 BMI: 19.03 BP: 110 / 63 Ref Provider: MANUEL WEISS PROCEDURES: Echocardiographic Report: Transthoracic complete echo with strain imaging,2D, spectral and tissue Doppler, color flow Doppler, M-mode. INDICATIONS: I27.21 Secondary pulmonary arterial hypertension, I50.812 Chronic rightheart failure, and M34.9 Systemic sclerosis, unspecified. CONCLUSIONS: 1. Normal left ventricular size based on volume index. Concentric LVremodeling. There is hyperdynamic left ventricular systolic function. The Ejection Fraction(Pappas's) is measured at 76 %. The average global longitudinal strain is normal. 2. Normal right ventricular size. Normal right ventricular systolicfunction. 3. The estimated right ventricular systolic pressure is 55-60 mmHg. ATTESTATION: I have personally reviewed and interpreted this study without fellow orresident. DISCLAIMER: The study images and the final report will be retained in the patientchart by the Echo Laboratory for the legally required time period. This chart constitutesthe legal record of any testing performed. FINDINGS: Left Ventricle: Normal left ventricular size based on volume index.Concentric LV remodeling. There is hyperdynamic left ventricular systolic function. TheEjection Fraction (Pappas's) is measured at 76 %. The average global longitudinalstrain is normal. The LV global strain is: -21.9 %. Right Ventricle: Normal right ventricular size. Normal right ventricularsystolic function. Left Atrium: The left atrium is normal in size. Right Atrium: Right atrial dilatation. Mitral Valve: Normal Mitral Valve Structure. Mild mitral valveregurgitation. Aortic Valve: Normal trileaflet aortic valve. No aortic regurgitation. Noaortic valve stenosis. Aortic valve dimensionless index is 0.73. Tricuspid Valve: Normal Tricuspid valve structure. Mild tricuspidregurgitation. The estimated right ventricular systolic pressure is 55-60 mmHg. Pulmonic Valve: Normal pulmonic valve structure. No pulmonicregurgitation. No pulmonic valve stenosis present. Pericardium: Normal pericardium without pericardial effusion. Aorta: Normal aortic root size at sinuses of Valsalva. Dilation of theaortic root when indexed. IVC: The IVC was <2.1 cm and collapsibility >50%. (est. RA pressure 0-5mmHg). PASP: Estimated pulmonary artery systolic pressure is consistent withmoderate pulmonary hypertension (50-70mmHg). Rhythm: Normal Sinus rhythm was seen during the study. MEASUREMENTS: 2D/MM Value Range DopplerValue Range LVIDd 2D 3.68 cm [ 3.80 - 5.20 ] AV Peak Vel1.3 m/s [ 1.0 - 1.7 ] LVIDs 2D 2.23 cm [ 2.20 - 3.50 ] AV Peak PG6.76 mmHg IVSd 2D 0.97 cm [ 0.60 - 0.90 ] AV Mean PG4 mmHg LVPWd 2D 0.92 cm [ 0.60 - 0.90 ] AV VTI32.6 cm LV Thickness Ratio 1.1 LVOT Peak Vel1.0 m/s [ 0.7 - 1.1 ] LV FS 2D 39.40 % [ 27.00 - 45.00 ] LVOT Peak PG4.00 mmHg LV Mass 2D 104.51 g LVOT Mean PG2 mmHg LV Mass Index 2D 72.73 g/m2 LVOT VTI23.8 cm RWT 0.50 LVOT Diam1.77 cm EDV Mod BP 70.25 ml [ 46.00 - 106.00 ] TORIN VTI1.80 cm2 LV EDV Index 48.89 ml/m2 LVOT/AV VTI0.73 - Dimensionless index (DVI) ESV Mod BP 16.55 ml [ 14.00 - 42.00 ] MV E Peak Vel0.8 m/s [ 0.6 - 1.3 ] EF Mod BP 76 % [ 54 - 74 ] MV A Peak Vel1.0 m/s [ 1.0 - 1.2 ] LV GLS -21.9 % [ -25.0 - -18.0 ] MV E/A0.9 ratio [ 0.8 - 1.5 ] LA Length 4C 5.13 cm MV VTI18.1 cm LA Length 2C 5.21 cm MV Decel Kwbx875.36 msec [ 104.00 - 258.00 ] LA Volume BP 34.82 ml Med E` Vel9.5 cm/sec [ 8.0 - 25.0 ] LA Volume Index 24.23 ml/m2 [ 16.00 - 34.00 ] Lat E` Vel9.3 cm/sec [ 10.0 - 25.0 ] MV Annulus 2D 1.92 cm Average E/E`8.51 RV Base Dimen 2D 3.4 cm [ 2.5 - 4.2 ] MV Alias Vel0.328 m/s TAPSE 2.50 cm [ 1.71 - 5.00 ] MR KNE971.8 cm RA Volume 41.07 ml MR Flow18.55 ml/sec RA Volume Index 28.58 ml/m2 MR PISA0.3 IVC Diam 1.19 cm MR EROA0.1 cm2 IVC Collapse 59 % PISARegurgitant Volume 19.3 ml AoR Diam 2D 3.22 cm [ 2.70 - 3.70 ] MV RegurgitantVolume 6.0 ml Ao Root Index 2.24 cm/m2 [ 1.00 - 2.00 ] MV RegurgitantFraction 11 % Asc Ao Diam 2D 2.84 cm RV S`13.04 cm/sec Asc Ao Index 1.98 cm/m2 TR Peak Vel3.8 m/s [ 1.0 - 2.8 ] TV Annulus 2D 2.50 cm TR Peak PG57.8 mmHg TR VTI 149.3 cm PV Peak James 0.7 m/s [ 0.4 - 0.8] PV Peak PG 1.96 mmHg Electronically Signed By: Johan Zhou MD 01/21/2025 10:52:16 AM CDT Maneul Weiss MD CV ECHO PROCEDURES Final Result * Dexa Axial Skeleton Bone Density 1 or 2 Site (06/25/2024 2:23 PM SPECIAL EVENTS MANAGER) Anatomical Region Laterality Modality Body N/A Mammography 06/26/2024 5:52 AM SPECIAL EVENTS MANAGER Narrative 06/26/2024 5:53 AM SPECIAL EVENTS MANAGER EXAM DESCRIPTION: DEXA AXIAL SKELETON BONE DENSITY 1 OR MORE SITES REASON FOR STUDY: 68 y/o year old F with given history of: Postmenopausal status. History of prior fracture. Patient has taken/is taking vitamin-D and calcium Recoater/Model: [employer] A (S/N [id number]) Facility LSC value of 0.022 for the [...] Electronically signed by Shabana Colon M.D. TW: CIRO Report ID: [id number] Reading Location: [id number] Procedure Note Shabana Colon MD - 06/26/2024 EXAM DESCRIPTION: DEXA AXIAL SKELETON BONE DENSITY 1 OR MORE SITES REASON FOR STUDY: 68 y/o year old F with given history of:Postmenopausal status. History of prior fracture. Patient has taken/is taking vitamin-Dand calcium Recoater/Model: [employer] A (S/N [id number]) Facility LSC value of 0.022 for the [...] Electronically signed by Shabana Colon M.D. TW: CIRO Report ID: [id number] Reading Location: [place] [address] Alondra BROWN IMG DXA PROCEDURES Fi nal Result * Stool DNA - Cologuard (07/14/2023 12:30 PM CDT) Stool DNA - Cologuard Negative Negative [employer] (Kaola100IA #:[id number]) Comment: NEGATIVE TEST RESULT. A negative Cologuard [...] Mcbride et al, N Engl J Med 2014;370(14):5014-2993) The normal value (reference range) for this assay is negative. COLOGUARD RE-SCREENING RECOMMENDATION: Periodic colorectal cancer screening is an important part of preventive healthcare for asymptomatic individuals at average risk for colorectal cancer. Following a negative Cologuard result, the [place] Cancer Society and U.S. Multi-Society Task Force screening guidelines recommend a Cologuard re-screening interval of 3 years. References: [place] [employer] Guideline for Colorectal Cancer Screening: https://www.cancer.org/cancer/ajeil-rkkpel-mvkdfa/ghjyxtgjg-maeqmltuw-zurqger/ac s-rec ommendations.html.; Pepito ANDRE, Candy CR, Dwaine POSADA, Colorectal Cancer Screening: Recommendations for Physicians and Patients from the U.S. Multi-Society Task Force on Colorectal Cancer Screening , Am J Gastroenterology 2017; 112:5269-3567. TEST DESCRIPTION: Composite algorithmic analysis of stool [...] (Zelda Alcantara al, N Engl J Med 2014;370(14):1105-0293.) Cologuard may produce a false negative or false positive result (no colorectal cancer or precancerous polyp present at colonoscopy follow up). A negative Cologuard test result does not guarantee the absence of CRC or advanced adenoma (pre-cancer). The current Cologuard screening interval is every 3 years. ([place] Cancer Society and U.S. Multi-Society Task Force). Cologuard performance data in a 10,000 patient pivotal study using colonoscopy as the reference method can be accessed at the following location: www.[employer].com/results. Additional description of the Cologuard test process, warnings and precautions can be found at www.[employer].com. Stool 07/14/2023 12:3 0 PM CDT 07/15/2023 7:29 PM CDT Stacey Oliva MD LAB BODY FLUIDS AND STOO LS ORDERABLES Final Result [facility] (CLIA #:[id number]) [place] [address] * Hepatitis panel, acute (12/22/2020 12:06 PM CDT) Hep A IgM NON-REACTI VE NON-REACT FAREED [facility] Comment: For additional information, please refer to http://Songwhale.Skill-Life/faq/KRS954 (This link is being provided for informational/ [...] a test for HCV RNA (test code 03101) is suggested. For additional information please refer to http://Songwhale.[employer]Life/faq/KPK31k8 (This link is being provided for informational/ educational purposes only.) Blood specimen (specimen) 12/22/2020 12:06 PM CDT 12/22/2020 12:07 PM CDT Alond[facility] BROWN LAB MICROBIOLOGY - NERAL ORDERABLES Final Result [facility] [id number] [address] [id number] from Last 3 Months or Most Recently Relevant to Health Maintenance Insurance [facility] AETNA MEDICARE [facility] Address: [facility] [address] [place] [address] [facility] Address[facility] [address] [place] [address] [facility] MEDICARE [facility] MEDICARE [facility] MEDICARE AETNA MEDICARE Advance Directives For more information, please contact: [phone] * Full Code (Latest Code Status on File) Date Activated Date Inactivated Comments 04/24/2024 7:31 AM 04/24/2024 1:43 PM * Full Code Date Activated Date Inactivated Comments 10/21/2021 10:11 PM 10/25/2021 6:36 PM * Full Code Date Activated Date Inactivated Comments 08/05/2021 10:55 AM 08/05/2021 4:39 PM * Full Code Date Activated Date Inactivated Comments 04/08/2021 10:47 AM 04/08/2021 3:21 PM Care Teams Product Mgmt Dev Manager Relationship Specialty Start Date End Date Shane Puckett MD PCP - General Internal Medicine 08/17/17 Ingris Katz MD [address] [place], [place] [id number] Consulting Physician Critical Care Med 12/22/20 Manuel Weiss MD [address] [place] [address] Referring Physician Pulmonary Disease 06/03/21 Shane Gage MD [address] [facility] [address] [place] [address] Consulting Physician Rheumatology 03/08/23
--- OUTSIDE RECORDS SUMMARY | 2025-03-24 16:45 | XMS_ITS | Patient Health Record ---
Author Organization [facility] [place] ([address]) Address [address] [facility] [address] [place] [address] Care Team Providers Care Refrigerator Car Icer Name Role Phone Lalalupis Shane Primary Care Provider Xin Gastelum Unavailable [phone] Allergies Allergen (clinical drug ingredient) Drug/Non Drug [...] Status Risk Notes Problem Chronic allergic conjunctivitis (18822907) Other chronic allergic conjunctivitis (H10.45) Active confirmed Problem Raynaud's disease (532120934) Raynaud's syndrome without gangrene (I73.00) Active confirmed Problem Allergic rhinitis caused by pollen (disorder) (77958742) Allergic rhinitis due to pollen (J30.1) Active confirmed Problem Allergic rhinitis (91398667) Other allergic rhinitis (J30.89) Active confirmed Problem Allergic rhinitis caused by animal hair and dander ([id number]) Allergic rhinitis due to animal (cat) (dog) hair and dander (J30.81) Active confirmed Plan Of Treatment No Information Insurance Providers Payer Name Payer Address Payer Phone Subscriber Number Group Number Insured Name Patient Relationship to Insured Coverage Start Date Coverage End Date [employer] Medicare [address] [place] [address] [id number] Soo Coello Self - patient is the insured 4 Medical (General) History Medical History History ICD Code Systemic sclerosis, unspecified M34.9 Raynaud's syndrome without gangrene I73. 00 Gastro-esophageal reflux disease without esophagitis K21.9 Chronic rhinitis J31.0 Surgical History Surgery Date(Month/Year) Appendicitis 11/11/1966 cholecystectomy 01/28/2010 dilation and curettage 06/28/1976 Sinus surgery Esophogus dialation 07/30/2023
--- OUTSIDE RECORDS SUMMARY | 2025-03-24 16:45 | XMS_ITS | Encounter Summary ---
Author Organization [facility] Address [address] [place] [address] Phone Care Team Providers Care Quality Assurance Tester Name Role Phone Shane Puckett MD Primary Care Provider [phone] Ingris Katz MD Unavailable [phone] Manuel Weiss MD Unavailable Shane Gage MD Unavailable [phone] Encounter Details Date Type Department Care Team (Latest Contact Info) Description 01/26/2025 Results Follow-Up [facility] Medicine Pulmonary [address] [facility] 8th [place] [address] [place] [address] Manuel Weiss MD [address] [place] [address] Transthoracic Echo (TTE) Complete W Doppler/CF Social History Tobacco Use Types Packs/Day Years [...] AM CDT documented as of this encounter Miscellaneous Notes * Result Encounter Note - Manuel Weiss MD - 01/26/2025 12:59 AM CDT Echo rev'd: RV normal size with normal function (TAPSE 2.5, Rvs' 12, strain - 22%). Normal LV with VTI 24, SVI 40. PAAT 110. PASP 58 mmHg. IVC nl. documented in this encounter Plan of Treatment Not on file documented as of this encounter Visit Diagnoses Not on filedocumented in this encounter Care Teams Quality Assurance Tester Relationship Specialty Start Date End Date Shane Puckett MD PCP - General Internal Medicine 08/17/17 Ingris Katz MD [address] [facility] [address] [place] [address] Consulting Physician Critical Care Med 12/22/20 Manuel Weiss MD [address] [place] [address] Referring Physician Pulmonary Disease 06/03/21 Shane Gage MD [address] [facility] [address] [place] [address] Consulting Physician Rheumatology 03/08/23 documented as of this encounter
--- OUTSIDE RECORDS SUMMARY | 2025-03-24 16:45 | XMS_ITS | Encounter Summary ---
Author Organization [facility] Address [address] [place] [address] Care Team Providers Care Physician Industrial Name Role Phone Shane Puckett MD Primary Care Provider [phone] Ulises GARSIA MD, John J. Unavailable [phone] Ingris Katz MD Unavailable [phone] Manuel Weiss MD Unavailable Shane Gage MD Unavailable Encounter Details Date Type Department Care Team (Late st Contact Info) Description 08/30/2017 Orders Only [facility] Health Information Management [address] [place] [id number] Scanning, Provider Social History Tobacco Use [...] documented as of this encounter Care Teams Physician Industrial Relationship Specialty Start Date End Date Shane Puckett MD PCP - General Internal Medicine 08/17/17 Kurt Montgomery III, MD [address] [place] [address] Consulting Physician Rheumatology 11/10/20 03/07/23 Ingris Katz MD [address] [place], [place] [id number] Consulting Physician Critical Care Med 12/22/20 Manuel Weiss MD [address] [place] [address] Referring Physician Pulmonary Disease 06/03/21 Shane Gage MD [address] [place] [address] Consulting Physician Rheumatology 03/08/23 documented as of this encounter
== END 2025-03-24 14:57 | disposition home or self-care (01) ==
LOC: ANHLAB 14:58
PROVIDERS: PCP Internal Medicine; Visit Provider Internal Medicine
DX: R50.9 Fever, unspecified (principal); Z20.822 Contact with and (suspected) exposure to COVID-19
CPT/HCPCS: 87637

== ENCOUNTER 2025-04-09 08:23 | Outpatient (CLI) | payer MEDICARE, SELFPAY ==
--- NOTE | ~2025-04-09 | US_ITS ---
EXAMINATION: US renal BI DATE: 04/09/2025 08:43 INDICATION: Stage I chronic kidney disease TECHNIQUE: Multiple ultrasound grayscale images of the kidneys were obtained. COMPARISON: None. FINDINGS: The right kidney measures 9.5 x 3.3 x 4.2 cm. The left kidney measures 9.8 x 3.6 x 3.9 cm. The kidneys demonstrate normal echogenicity. There is no hydronephrosis in either kidney. No stones identified. The bladder is normal. IMPRESSION: 1. Normal kidneys without hydronephrosis. Reviewed, dictated and finalized at location A. [facility]
== END 2025-04-09 08:24 | disposition home or self-care (01) ==
LOC: MICIMG 08:24
PROVIDERS: PCP Internal Medicine; Visit Provider Internal Medicine
DX: N18.1 Chronic kidney disease, stage 1 (principal); R79.89 Other specified abnormal findings of blood chemistry
CPT/HCPCS: 76770